=== PATIENT | male | born 1960 | race Caucasian/White ===

== ENCOUNTER 2016-08-23 18:12 | Inpatient (IN) ==
--- NOTE | 2016-08-23 18:51 | Emergency Department Note ---
Disposition Clinical Impression: Hyponatremia Left humeral fracture Qualifiers: Encounter type: initial encounter Humerus Location: proximal Fracture type: closed Fracture morphology: other fracture Fracture alignment: nondisplaced Qualified Code(s): S42.295A - Other nondisplaced fracture of upper end of left humerus, initial encounter for closed fracture Disposition: Admitted As Inpatient Condition: Critical Referrals: Nicolas Harper MD [Primary Care Provider] - Forms: ED Satisfaction Letter Time of Disposition: 20:15 Fall HPI - General Chief Complaint: ED Fall Stated Complaint: fall, ETOH Time Seen by Provider: 08/23/16 18:26 Source: patient, EMS Mode of arrival: EMS Limitations: no limitations Nursing Notes Reviewed: Yes Vital Signs Reviewed: Yes - History of Present Illness HPI Narrative: 56-year-old male with extensive history of alcohol abuse arrives to [facility] emergency department after having a fall yesterday in. The patient states that he drank 20 beers and his noted that the patient fell on his left upper extremity and shoulder. The patient went to bed and woke up this morning with an extensive amount of bruising. The attempted to bring the patient to the hospital for further evaluation. The patient refused. The patient states that he and another 20 beers today and had another fall. At that time the convince the patient to return to the emergency department. The patient denies any other symptoms at this time other than left sided chest wall and left upper extremity pain. The patient is clinically intoxicated at this time. Pt Subjective Complaint: fall Onset (ago): day(s) (1) Fall From: standing Fall Witnessed: yes Place Fall Occurred: home Loss of Consciousness: none Prolonged Down Time?: no Symptoms Prior to Fall: none Context: tripped/slipped Severity: mild Severity scale (1-10): 4 Associated symptoms (after fall): Reports: denies - Related Data Home Medications Medication Instructions Recorded Confirmed Lisinopril [Zestril] 10 mg PO DAILY 01/27/15 08/23/16 Albuterol Sulfate [Ventolin Hfa] 2 puff IH Q4H PRN 08/23/16 08/23/16 Oxycodone HCl/Acetaminophen 1 each PO Q8H PRN 08/23/16 08/23/16 [Percocet 10-325 mg Tablet] Tiotropium [place] [Spiriva 2 puff IH DAILY 08/23/16 08/23/16 Respimat] Allergies Allergy/AdvReac Type Severity Reaction Status Date / Time Androgenic Anabolic Steroid AdvReac Nausea Verified 07/08/15 11:01 Constitutional: Denies: fever, chills, weakness, weight change Eyes: Denies: eye pain, eye discharge, vision change Cardiovascular: Reports: chest pain. Denies: palpitations, dyspnea on exertion , edema, syncope Respiratory: Denies: cough, dyspnea, wheezes, hemoptysis, stridor Gastrointestinal: Denies: abdominal pain, nausea, vomiting, diarrhea, constipation, hematemesis, melena, hematochezia Musculoskeletal: Reports: arthralgia, myalgia. Denies: back pain, neck pain Integumentary: Denies: rash, abrasion, lesions Neurological: Denies: headache, weakness, numbness, paresthesias, confusion, abnormal gait, vertigo Fall PMH - Past Medical History Medical history: Reports: COPD, hypertension Surgical history: Reports: non-contributory Psychiatric history: Reports: anxiety, depression - Social History Smoking Status: Current every day smoker Alcohol use: Reports: heavy, recent Drug use: Reports: opiates Physical Exam - General Limitations: no limitations General appearance: appears intoxicated - Head Head exam: atraumatic, normocephalic, normal inspection - Eye Eye exam: Present: normal appearance, PERRL, EOMI - ENT ENT exam: normal exam, normal oropharynx, mucous membranes moist - Neck Neck exam: Present: normal inspection, full ROM, trachea midline - Chest Chest inspection: Present: symmetric chest wall rise, tenderness, other ( Extensive ecchymosis along the left chest wall into the axilla and left shoulder ) - Respiratory Respiratory exam: Present: normal lung sounds bilaterally - Cardiovascular Cardiovascular exam: Present: regular rate, normal rhythm, normal heart sounds - Abdominal Exam Abdominal exam: Present: soft, tenderness (Generalized), normal bowel sounds. Absent: distention, guarding, rebound, rigidity - Extremities Exam Extremities exam: Present: tenderness (Left shoulder with extensive ecchymosis in the left upper extremity, no obvious deformity noted, a large amount of edema in the left upper extremity as well.) - Back Exam Back exam: Present: normal inspection, full ROM. Absent: tenderness - Neurological Exam Neurological exam: Present: alert, other (Patient clearly intoxicated on physical exam) - Skin Skin exam: Present: warm, dry, intact, normal color Course Vital Signs Temperature 98.6 F 08/23/16 18:13 Pulse Rate 108 08/23/16 18:13 Respiratory Rate 26 08/23/16 18:13 Blood Pressure 119/99 08/23/16 18:13 O2 Sat by Pulse Oximetry 99 08/23/16 18:13 Temperature 98.6 F 08/23/16 18:13 Pulse Rate 112 08/23/16 20:20 Respiratory Rate 20 08/23/16 20:20 Blood Pressure 153/85 08/23/16 20:20 O2 Sat by Pulse Oximetry 98 08/23/16 20:20 Oxygen Delivery Oxygen Delivery Room Air Fall - MDM Narrative Medical decision making narrative: Spoke to hospitalist as well as nephrology. Nephrology recommends 3% saline infusion at 75 mL per hour with Q2 hours sodium checks. Cutting off the 3% solution at a sodium of 1:15. Hospitalist requested an central line be placed for the infusion. We will admit the patient to the ICU. Orthopedics was consulted who recommended a sling. The patient will be seen by orthopedics inpatient. - Lab Data Lab results reviewed: Yes I reviewed the patient's lab results. Result diagrams: 08/23/16 19:10 08/23/16 19:10 Lab Results 08/23/16 08/23/16 08/23/16 Range/Units 19:10 19:10 19:10 WBC 8.2 (4.3-11.1) K/mcL RBC 3.16 L (4.19-5.50) M/mcL Hgb 9.6 L (12.9-16.9) g/dL Hct 26.0 L (37.5-50.1) % MCV 82.3 L (83.0-100.0) fL MCH 30.4 (28.0-33.3) pg MCHC 36.9 H (31.6-35.5) g/dL RDW 12.7 (11.5-14.5) % Plt Count 135 L (140-400) K/mcL MPV 8.3 L (9.4-12.4) fL Immature Gran % 0.7 (0-4) % Seg Neutrophils % 87.0 % Lymphocytes % 6.7 % Monocytes % 5.5 % Eosinophils % 0.0 % Basophils % 0.1 % Neutrophils # 7.2 (1.6-8.9) K/mcL Lymphocytes # 0.6 (0.6-4.6) K/mcL Monocytes # 0.5 (0.0-1.3) K/mcL Eosinophils # 0.0 (0.0-0.6) K/mcL Basophils # 0.0 (0.0-0.2) K/mcL PT (9.4-12.1) Seconds INR Sodium 109 L* (136-145) mEq/L Potassium 4.3 (3.5-4.5) mEq/L Chloride 74 L (98-109) mEq/L Carbon Dioxide 16 L (19-29) mEq/L BUN 4 L (8-26) mg/dL Creatinine 0.66 L (0.72-1.25) mg/dL Est GFR ( Amer) > 60 (> 60) Est GFR (Non-Af Amer) > 60 (> 60) BUN/Creatinine Ratio 6 (6-26) Glucose 126 H (70-99) mg/dL Calculated Osmolality 226 L (280-300) Calcium 8.3 L (8.6-10.8) mg/dL Magnesium (1.6-2.6) mg/dL Total Bilirubin 1.1 (0.2-1.2) mg/dL AST 177 H (5-34) Units/L ALT 224 H (0-55) Units/L Alkaline Phosphatase 82 (38-126) Units/L Creatine Kinase (30-200) Units/L Troponin I 0.00 (0-0.03) ng/mL Serum Total Protein 6.4 (6.0-8.3) g/dL Albumin 3.7 (3.5-5.0) g/dL Globulin 2.7 (2.4-3.5) g/dL Albumin/Globulin Ratio 1.4 (1.1-2.2) Urine Opiates Screen (Vyxpwg=970) ng/mL Ur Barbiturates Screen (Mrulkc=435) ng/mL Ur Phencyclidine Scrn (Cutoff=25) ng/mL Ur Amphetamines Screen (Ddbkxr=8115) ng/mL U Benzodiazepines Scrn (Gtfwsw=883) ng/mL Urine Cocaine Screen (Cutoff= 300) ng/mL U Marijuana (THC) Screen (Cutoff = 50) ng/mL Ethyl Alcohol 274 H (0-10) mg/dL 08/23/16 08/23/16 08/23/16 Range/Units 19:10 19:10 19:27 WBC (4.3-11.1) K/mcL RBC (4.19-5.50) M/mcL Hgb (12.9-16.9) g/dL Hct (37.5-50.1) % MCV (83.0-100.0) fL MCH (28.0-33.3) pg MCHC (31.6-35.5) g/dL RDW (11.5-14.5) % Plt Count (140-400) K/mcL MPV (9.4-12.4) fL Immature Gran % (0-4) % Seg Neutrophils % % Lymphocytes % % Monocytes % % Eosinophils % % Basophils % % Neutrophils # (1.6-8.9) K/mcL Lymphocytes # (0.6-4.6) K/mcL Monocytes # (0.0-1.3) K/mcL Eosinophils # (0.0-0.6) K/mcL Basophils # (0.0-0.2) K/mcL PT 10.9 (9.4-12.1) Seconds INR 1.0 Sodium Cancelled (136-145) mEq/L Potassium (3.5-4.5) mEq/L Chloride (98-109) mEq/L Carbon Dioxide (19-29) mEq/L BUN (8-26) mg/dL Creatinine (0.72-1.25) mg/dL Est GFR ( Amer) (> 60) Est GFR (Non-Af Amer) (> 60) BUN/Creatinine Ratio (6-26) Glucose (70-99) mg/dL Calculated Osmolality (280-300) Calcium (8.6-10.8) mg/dL Magnesium 1.7 (1.6-2.6) mg/dL Total Bilirubin (0.2-1.2) mg/dL AST (5-34) Units/L ALT (0-55) Units/L Alkaline Phosphatase (38-126) Units/L Creatine Kinase 803 H (30-200) Units/L Troponin I (0-0.03) ng/mL Serum Total Protein (6.0-8.3) g/dL Albumin (3.5-5.0) g/dL Globulin (2.4-3.5) g/dL Albumin/Globulin Ratio (1.1-2.2) Urine Opiates Screen Negative (Roerwa=315) ng/mL Ur Barbiturates Screen Negative (Lxoisp=971) ng/mL Ur Phencyclidine Scrn Negative (Cutoff=25) ng/mL Ur Amphetamines Screen Negative (Heoprj=3667) ng/mL U Benzodiazepines Scrn Negative (Cfkzzw=700) ng/mL Urine Cocaine Screen Negative (Cutoff= 300) ng/mL U Marijuana (THC) Screen Negative (Cutoff = 50) ng/mL Ethyl Alcohol (0-10) mg/dL - Radiology Data Radiology results reviewed: Yes I reviewed the patient's radiology results. - EKG Data EKG attestation: Yes I reviewed and interpreted this EKG. EKG results narrative: Heart rate 10 6 bpm. SD interval 141 ms. QTc 381 ms. Normal axis. Sinus tachycardia. No ST elevation or ST depression noted. EKG previously unavailable. Critical Care Time Critical Care Time: Yes Total Critical Care Time: 50 Attestation: Critical care time exclusive of the time required to place a central line was 50 minutes in this patient. Attestation Statement - Attestation Attestation: Patient was seen with resident physician. I reviewed the history, physical, assessment and plan, and agree with the findings. I also personally evaluated this patient and had [id number] time with this patient. 56-year-old male presents to the emergency department with chief complaint of fall. Patient fell yesterday and today developed severe bruising to the left shoulder and arm. Patient is a severe alcoholic drink approximately 20 beers yesterday and another 20 at some point today. Grossly intoxicated he provides absolutely no history whatsoever. History obtained is from 's disease had multiple falls in the last day or so. She is not sure if he hit his head or having loss of consciousness. Patient again is unable to provide any history secondary to intoxication presumably. Vital signs on arrival blood pressure was stable. Heart regular rhythm and rate. Lungs clear. Chest wall shows significant bruising on the lateral pectoralis area on the left side extending around the left flank and into the back. The back and neck themselves are nontender. The abdomen is nontender to palpation there are positive bowel sounds and extremities show no signs of trauma except for the left upper extremity where the patient has significant swelling along the proximal humerus. Skin exam showed bruising as noted and he has got an abrasion to the knees bilaterally worse on the right than on the left. ED course bride of x-rays will be obtained including head CT and neck CT because of injuries cannot be ruled out under the patient's current condition. We will also check lab tests. X-ray of the arm reveals a proximal humerus fracture that appears displaced. Remainder of his workup revealed several other very significant abnormalities. Worst among these was a sodium of 109. Because of this we contacted nephrology to help with fluid resuscitation. Orders per their instructions were done but required a central line which was placed into the right IJ. Patient tolerated the procedure well I was present for the entire procedure. This was performed by resident physician. Additionally the patient had evidence to suggest aspiration pneumonia with ground glass appearance on chest CT scan. Patient was started on IV antibiotics. Orthopedics was also contacted by myself to arrange for consultation for his humerus fracture. Because of the severity of the patient's hyponatremia with felt he was best served by placement in the intensive care unit. This was discussed with the hospitalist and placement in the ICU was arranged. Hemodynamically the patient remains stable but intoxicated throughout his stay. He also had several episodes of nausea and vomiting which were treated with Zofran successfully. Critical care time for this patient exclusive of time of procedure was 50 minutes. Otherwise patient will require hospitalization. Agree with resident physician assessment and plan
[2016-08-23 19:17] LABS: Basophils % 0.1 %; Hemoglobin 9.6 g/dL (12.9-16.9); Immature Granulocytes % 0.7 % (0-4); Lymphocytes # 0.6 K/mcL (0.6-4.6); Lymphocytes % 6.7 %; Mean Corpuscular HGB Conc 36.9 g/dL (31.6-35.5); Mean Corpuscular Hemoglobin 30.4 pg (28.0-33.3); Mean Corpuscular Volume 82.3 fL (83.0-100.0); Mean Platelet Volume 8.3 fL (9.4-12.4); Monocytes # 0.5 K/mcL (0.0-1.3); Monocytes % 5.5 %; Neutrophils # 7.2 K/mcL (1.6-8.9); Platelet Count 135 K/mcL (140-400); Red Blood Count 3.16 M/mcL (4.19-5.50); Red Cell Distribution Width 12.7 % (11.5-14.5)
[2016-08-23 19:22] LABS: Prothrombin Time 10.9 Seconds (9.4-12.1)
[2016-08-23 19:31] LABS: Alanine Aminotransferase 224 Units/L (0-55); Albumin 3.7 g/dL (3.5-5.0); Albumin/Globulin Ratio 1.4 (1.1-2.2); Alkaline Phosphatase 82 Units/L (38-126); Aspartate Amino Transferase 177 Units/L (5-34); BUN/Creatinine Ratio 6 (6-26); Bilirubin,Total 1.1 mg/dL (0.2-1.2); Calcium 8.3 mg/dL (8.6-10.8); Carbon Dioxide 16 mEq/L (19-29); Chloride 74 mEq/L (98-109); Ethanol 274 mg/dL (0-10); Globulin 2.7 g/dL (2.4-3.5); Glucose 126 mg/dL (70-99); Osmolality,Calculated 226 (280-300); Potassium 4.3 mEq/L (3.5-4.5); Total Protein 6.4 g/dL (6.0-8.3); eGFR For African Americans > 60 (> 60); eGFR For Non-African Americans > 60 (> 60)
[2016-08-23 19:32] LABS: Blood Urea Nitrogen 4 mg/dL (8-26)
[2016-08-23 19:35] LABS: Sodium 109 mEq/L (136-145)
[2016-08-23 19:42] LABS: Amphetamine Screen,Urine Negative ng/mL (Cutoff=1000); Barbiturate Screen,Urine Negative ng/mL (Cutoff=200); Benzodiazepines Screen,Urine Negative ng/mL (Cutoff=200); Cannabinoid Screen,Urine Negative ng/mL (Cutoff = 50); Cocaine Screen,Urine Negative ng/mL (Cutoff= 300); Opiate Screen,Urine Negative ng/mL (Cutoff=300); Phencyclidine Screen,Urine Negative ng/mL (Cutoff=25)
[2016-08-23] MEDS ORDERED: Clindamycin 600 MG/50 ML 600 MG/50 ML IV.SOLN IVPB STA (19:50)
[2016-08-23] MEDS ORDERED: Ondansetron 4 MG/2 ML VIAL IVP ONE ×2 (20:04→20:07)
[2016-08-23 20:31] LABS: Magnesium 1.7 mg/dL (1.6-2.6)
--- NOTE | 2016-08-23 21:00 | Emergency Department Note ---
Disposition Clinical Impression: Hyponatremia Left humeral fracture Qualifiers: Encounter type: initial encounter Humerus Location: proximal Fracture type: closed Fracture morphology: other fracture Fracture alignment: nondisplaced Qualified Code(s): S42.295A - Other nondisplaced fracture of upper end of left humerus, initial encounter for closed fracture Disposition: Admitted As Inpatient Condition: Critical Fall HPI - General Chief Complaint: ED Fall Stated Complaint: fall, ETOH Time Seen by Provider: 08/23/16 18:26 Source: patient, EMS Mode of arrival: EMS - History of Present Illness HPI Narrative: This note serves as a procedure note. For full history of present illness and physical exam, clinical course please see Dr. Acosta's and Dr. Patricia's note. Place Fall Occurred: home Context: tripped/slipped Associated symptoms (after fall): Reports: denies - Related Data Home Medications Medication Instructions Recorded Confirmed Lisinopril [Zestril] 10 mg PO DAILY 01/27/15 08/23/16 Albuterol Sulfate [Ventolin Hfa] 2 puff IH Q4H PRN 08/23/16 08/23/16 Oxycodone HCl/Acetaminophen 1 each PO Q8H PRN 08/23/16 08/23/16 [Percocet 10-325 mg Tablet] Tiotropium [place] [Spiriva 2 puff IH DAILY 08/23/16 08/23/16 Respimat] Allergies Allergy/AdvReac Type Severity Reaction Status Date / Time Androgenic Anabolic Steroid AdvReac Nausea Verified 07/08/15 11:01 Constitutional: Denies: fever, chills, weakness, weight change Eyes: Denies: eye pain, eye discharge, vision change Cardiovascular: Reports: chest pain. Denies: palpitations, dyspnea on exertion , edema, syncope Respiratory: Denies: cough, dyspnea, wheezes, hemoptysis, stridor Gastrointestinal: Denies: abdominal pain, nausea, vomiting, diarrhea, constipation, hematemesis, melena, hematochezia Musculoskeletal: Reports: arthralgia, myalgia. Denies: back pain, neck pain Integumentary: Denies: rash, abrasion, lesions Neurological: Denies: headache, weakness, numbness, paresthesias, confusion, abnormal gait, vertigo Fall PMH - Past Medical History Medical history: Reports: COPD, hypertension Surgical history: Reports: non-contributory Psychiatric history: Reports: anxiety, depression - Social History Smoking Status: Current every day smoker Alcohol use: Reports: heavy, recent Drug use: Reports: opiates Physical Exam - General Limitations: no limitations General appearance: appears intoxicated Course Vital Signs Temperature 98.6 F 08/23/16 18:13 Pulse Rate 108 08/23/16 18:13 Respiratory Rate 26 08/23/16 18:13 Blood Pressure 119/99 08/23/16 18:13 O2 Sat by Pulse Oximetry 99 08/23/16 18:13 Temperature 98.6 F 08/23/16 18:13 Pulse Rate 144 08/23/16 21:20 Respiratory Rate 20 08/23/16 21:20 Blood Pressure 112/23 08/23/16 21:20 O2 Sat by Pulse Oximetry 99 08/23/16 21:20 Oxygen Delivery Oxygen Delivery Room Air Procedures - Central Line Placement Right IJ Central Line Inserted*: Yes Central Line Catheter Replacement*: Yes Central Line Insertion: emergent Consent Obtained: written consent Procedural Pause: verify patient name and date of , timeout performed per policy, shanta and assess the site, assemble equipment and verify supplies, perform hand hygiene Patient Placed on Monitor/Pulse Ox: Yes During the Procedure: clinician is wearing sterile gloves, cap, mask,& gown during insertion, sterile field and sterile technique are maintained, patient's face is covered with drape or mask and wearing a cap, everyone in room is wearing a mask Central Line Prep: Povidone-Iodine 1% Prep the Procedure Site: apply chloraprep to the skin using a back and forth scrubbing motion, apply chloraprep for 30 seconds (upper body), 1-2 min ( femoral sites), drape the patient with a full body drape Local Anesthetic: lidocaine 1% Amount of anesthesia used (mL): 3 Ultrasound Used for Placement: Yes Central Line Lumen Inserted: triple Post Procedure: sutured in place, good blood return, all ports aspirated, flushed, capped, sterile dressing applied, guide wire removed and visualized Post Procedure X-Ray: tip of catheter in good position, no pneumothorax seen Patient Tolerated Procedure: well, no complications Complications: none Name of Clinician Inserting Central Line: Thor Clinician Assisting/Completing Checklist: Belem Acosta Date: 08/23/16 Time: 21:00 Fall - Lab Data Result diagrams: 08/23/16 19:10 08/23/16 21:53 Lab Results 08/23/16 08/23/16 08/23/16 Range/Units 19:10 19:10 19:10 WBC 8.2 (4.3-11.1) K/mcL RBC 3.16 L (4.19-5.50) M/mcL Hgb 9.6 L (12.9-16.9) g/dL Hct 26.0 L (37.5-50.1) % MCV 82.3 L (83.0-100.0) fL MCH 30.4 (28.0-33.3) pg MCHC 36.9 H (31.6-35.5) g/dL RDW 12.7 (11.5-14.5) % Plt Count 135 L (140-400) K/mcL MPV 8.3 L (9.4-12.4) fL Immature Gran % 0.7 (0-4) % Seg Neutrophils % 87.0 % Lymphocytes % 6.7 % Monocytes % 5.5 % Eosinophils % 0.0 % Basophils % 0.1 % Neutrophils # 7.2 (1.6-8.9) K/mcL Lymphocytes # 0.6 (0.6-4.6) K/mcL Monocytes # 0.5 (0.0-1.3) K/mcL Eosinophils # 0.0 (0.0-0.6) K/mcL Basophils # 0.0 (0.0-0.2) K/mcL PT (9.4-12.1) Seconds INR Sodium 109 L* (136-145) mEq/L Potassium 4.3 (3.5-4.5) mEq/L Chloride 74 L (98-109) mEq/L Carbon Dioxide 16 L (19-29) mEq/L BUN 4 L (8-26) mg/dL Creatinine 0.66 L (0.72-1.25) mg/dL Est GFR ( Amer) > 60 (> 60) Est GFR (Non-Af Amer) > 60 (> 60) BUN/Creatinine Ratio 6 (6-26) Glucose 126 H (70-99) mg/dL Calculated Osmolality 226 L (280-300) Calcium 8.3 L (8.6-10.8) mg/dL Magnesium (1.6-2.6) mg/dL Total Bilirubin 1.1 (0.2-1.2) mg/dL AST 177 H (5-34) Units/L ALT 224 H (0-55) Units/L Alkaline Phosphatase 82 (38-126) Units/L Creatine Kinase (30-200) Units/L Troponin I 0.00 (0-0.03) ng/mL Serum Total Protein 6.4 (6.0-8.3) g/dL Albumin 3.7 (3.5-5.0) g/dL Globulin 2.7 (2.4-3.5) g/dL Albumin/Globulin Ratio 1.4 (1.1-2.2) Urine Opiates Screen (Sjartq=037) ng/mL Ur Barbiturates Screen (Jlgdvz=213) ng/mL Ur Phencyclidine Scrn (Cutoff=25) ng/mL Ur Amphetamines Screen (Tnasof=1934) ng/mL U Benzodiazepines Scrn (Vjvtof=138) ng/mL Urine Cocaine Screen (Cutoff= 300) ng/mL U Marijuana (THC) Screen (Cutoff = 50) ng/mL Ethyl Alcohol 274 H (0-10) mg/dL 08/23/16 08/23/16 08/23/16 Range/Units 19:10 19:10 19:27 WBC (4.3-11.1) K/mcL RBC (4.19-5.50) M/mcL Hgb (12.9-16.9) g/dL Hct (37.5-50.1) % MCV (83.0-100.0) fL MCH (28.0-33.3) pg MCHC (31.6-35.5) g/dL RDW (11.5-14.5) % Plt Count (140-400) K/mcL MPV (9.4-12.4) fL Immature Gran % (0-4) % Seg Neutrophils % % Lymphocytes % % Monocytes % % Eosinophils % % Basophils % % Neutrophils # (1.6-8.9) K/mcL Lymphocytes # (0.6-4.6) K/mcL Monocytes # (0.0-1.3) K/mcL Eosinophils # (0.0-0.6) K/mcL Basophils # (0.0-0.2) K/mcL PT 10.9 (9.4-12.1) Seconds INR 1.0 Sodium Cancelled (136-145) mEq/L Potassium (3.5-4.5) mEq/L Chloride (98-109) mEq/L Carbon Dioxide (19-29) mEq/L BUN (8-26) mg/dL Creatinine (0.72-1.25) mg/dL Est GFR ( Amer) (> 60) Est GFR (Non-Af Amer) (> 60) BUN/Creatinine Ratio (6-26) Glucose (70-99) mg/dL Calculated Osmolality (280-300) Calcium (8.6-10.8) mg/dL Magnesium 1.7 (1.6-2.6) mg/dL Total Bilirubin (0.2-1.2) mg/dL AST (5-34) Units/L ALT (0-55) Units/L Alkaline Phosphatase (38-126) Units/L Creatine Kinase 803 H (30-200) Units/L Troponin I (0-0.03) ng/mL Serum Total Protein (6.0-8.3) g/dL Albumin (3.5-5.0) g/dL Globulin (2.4-3.5) g/dL Albumin/Globulin Ratio (1.1-2.2) Urine Opiates Screen Negative (Rgyjaz=187) ng/mL Ur Barbiturates Screen Negative (Gqfhkl=466) ng/mL Ur Phencyclidine Scrn Negative (Cutoff=25) ng/mL Ur Amphetamines Screen Negative (Lxquha=6607) ng/mL U Benzodiazepines Scrn Negative (Bpfhiy=458) ng/mL Urine Cocaine Screen Negative (Cutoff= 300) ng/mL U Marijuana (THC) Screen Negative (Cutoff = 50) ng/mL Ethyl Alcohol (0-10) mg/dL Attestation Statement - Attestation Attestation: This is a procedure note for the insertion of a right IJ central line. Line was successfully placed by resident physician. I was present for the entire procedure. Procedure was without complications. Written consent was obtained from the patient's spouse as he was too intoxicated to consent himself.
[2016-08-23] MEDS ORDERED: *HR* Promethazine 25 MG/ML VIAL IVP ONE (21:16)
[2016-08-23] MEDS ORDERED: Naloxone 0.4 MG/ML INJ IVP PRN (22:09)
[2016-08-23] MEDS ORDERED: *HR* LORazepam 2 MG/ML VIAL IVP PRN ×2 (22:10)
[2016-08-23] MEDS ORDERED: Pantoprazole 40 MG VIAL IVP ONE (22:51)
--- NOTE | 2016-08-23 22:51 | Internal Med History&Physical ---
Date of Encounter: 08/23/16 Time of Encounter: 22:51 Assessment and Plan (1) Hyponatremia Current visit: Yes Status: Acute Likely secondary to Beer potomania. Pt is started on 3% saline per digester cook. Monitor serum sodium level every 2 hours, for gradual improvement of the sodium level. Seizure precautions. CT head and CT chest negative for mass lesions.Will check TSH. (2) Upper GI bleed Current visit: Yes Status: Acute Patient reports vomiting blood. I suspect this is probably related to gastritis /esophagitis. CT scan reports esophagitis. Will treat with pantoprazole. Consult gastroenterology for possible upper GI endoscopy. Monitor H&H and transfuse as needed, to keep hemoglobin above 8 (3) Acute blood loss anemia Current visit: Yes Status: Acute Likely secondary to upper GI bleed. Consult gastroenterology for possible upper GI endoscopy. Monitor H&H and transfuse as needed, to keep hemoglobin above 8 (4) Rhabdomyolysis Current visit: Yes Status: Acute Patient is receiving IV fluids. Will avoid rapid IV fluids due to severe hyponatremia. Monitor CK levels. Qualifiers: Rhabdomyolysis type: traumatic Encounter type: initial encounter Qualified Code(s): T79.6XXA - Traumatic ischemia of muscle, initial encounter (5) Transaminitis Current visit: Yes Status: Acute Likely secondary to rhabdomyolysis versus alcoholic hepatitis. Monitor LFTs (6) Alcohol intoxication Current visit: Yes Status: Acute ETOH level of 274 in the emergency department. He is at high risk for alcohol withdrawal. Start alcohol withdrawal protocol. We will give him intravenous vitamins. Qualifiers: Complication of substance-induced condition: with unspecified complication Qualified Code(s): F10.129 - Alcohol abuse with intoxication, unspecified (7) Esophagitis Current visit: Yes Status: Acute CT scan shows evidence of esophagitis, could be causing upper GI bleed. Treat with the pantoprazole. GI consultation. (8) HTN (hypertension) Current visit: Yes Status: Chronic Will resume his home medications Qualifiers: Hypertension type: essential hypertension Qualified Code(s): I10 - Essential (primary) hypertension (9) Alcohol abuse Current visit: Yes Status: Chronic ETOH level of 274 in the emergency department. He is at high risk for alcohol withdrawal. Start alcohol withdrawal protocol. We will give him intravenous vitamins. (10) Left humeral fracture Current visit: Yes Status: Acute Patient has a sling in place. Orthopedic consultation for possible surgical intervention. Qualifiers: Encounter type: initial encounter Humerus Location: proximal Fracture type: closed Fracture morphology: other fracture Fracture alignment: nondisplaced Qualified Code(s): S42.295A - Other nondisplaced fracture of upper end of left humerus, initial encounter for closed fracture (11) Tobacco abuse Current visit: Yes Status: Chronic Nicotine patch Internal Medicine - H&P: HPI Chief complaint: Falls Admitted From: Emergency Dept Plans for Post Hospital Care: Home History of present illness: Mr. Verduzco is a 56 year old male with h/o hypertension, COPD, extensive history of alcohol abuse presented to the emergency department after he had a fall yesterday and bruising over the left shoulder. The patient apparently drank about 20 beers yesterday and the 20 beers today. He has been drinking heavy for the last week, and his states that he has been depressed. He has h/o chronic alcohol abuse, but was going to therapy before. He reports vomiting blood/black colored fluid today. He denies melena/ hematochezia. He denies chest pain, shortness of breath, fever, chills, dysuria , hematuria, diarrhea. He denies cough, expectoration. He reports pain in the left shoulder area and bruising, and is on Sling for left upper extremity. He was evaluated in the emergency department and was noted to have comminuted, impacted left humeral neck fracture and was given sling. His labs showed serum sodium of 109 and transaminitis and elevated CK. Physician discussed with digester cook, and started on 3% saline. He is admitted to the intensive care unit for further management. Past Med Surg Social Fam HX - Past Medical History Medical history: COPD, hypertension Psychiatric history: anxiety, depression - Past Surgical History Surgical History: non-contributory - Social History Smoking Status: Current every day smoker Smokeless Tobacco Status: No Alcohol use: heavy, recent Drug use: opiates - Family History Mother Living Status: Hx Family Cancer: Yes Internal Medicine - H&P: Meds Lisinopril [Zestril] 10 mg PO DAILY 01/27/15 [History] Albuterol Sulfate [Ventolin Hfa] 2 puff IH Q4H PRN 08/23/16 [History] Oxycodone HCl/Acetaminophen [Percocet 10-325 mg Tablet] 1 each PO Q8H PRN [History] Tiotropium [place] [Spiriva Respimat] 2 puff IH DAILY 08/23/16 [History] Allergies Androgenic Anabolic Steroid Adverse Reaction (Verified 07/08/15 11:01) Nausea All Systems PM: A 10-system review of systems was performed and is negative for pertinent findings except as documented above in the HPI. - Constitutional Vitals: Temp Pulse Resp BP Pulse Ox 98.6 F 144 20 106/76 99 08/23/16 18:13 08/23/16 21:20 08/23/16 22:49 08/23/16 22:49 08/23/16 21:20 Exam: General: Not in acute distress at the time of my evaluation HEENT: Oral mucosa is moist. No conjunctival palor or scleral icterus Neck: No obvious neck swellings Lungs: Clear to auscultation Cardiac: Regular rate and rhythm. No significant murmurs Abdomen: Soft, non tender. Bowel sounds present Genitourinary: No hopkins catheter Neurological: Alert and oriented. No gross localizing deficits Psych: Not aggressive or agitated Extremities: There is bruising over the left shoulder and chest area. Has sling to the left upper extremity Skin: No generalized rash Internal Med - H&P Results - Labs CBC & Chem 7: 08/24/16 02:44 08/24/16 02:44 Labs: BMP 08/23/16 21:53 Sodium 111 L* - EKG Data -: EKG Interpreted by Myself EKG shows normal: sinus rhythm Rate: tachycardia - Impressions ITS Impressions Chest X-Ray 08/23/16 18:27 IMPRESSION: No acute cardiopulmonary disease. Left lateral 9th rib fracture. Comminuted left humeral neck fracture. D/ / Giuseppe Burks MD / Giuseppe Burks MD Interpreting Provider: Giuseppe Burks MD Abdomen/Pelvis CT 08/23/16 18:28 IMPRESSION: Acute fracture of the proximal left humerus with surrounding soft tissue swelling and edema. Multiple remote left-sided rib fractures. Scattered, nonspecific ground-glass nodular infiltrates within both lungs. Thickened, edematous lower esophagus which may reflect esophagitis. Fatty liver. D/ / Khoi Bunch MD / Khoi Bunch MD Interpreting Provider: Khoi Bunch MD Cervical Spine CT 08/23/16 18:29 IMPRESSION: 1. No convincing acute osseous finding to account for patient's neck pain; however, image quality is degraded by motion secondary to hiccups. If patient's neck pain persists, consider repeating CT once hiccups have resolved. 2. Moderate degenerative disc disease at C5-C6 with reversal of the cervical lordosis at C4-C5 with chronic wedge deformities of C4 and C5. D/ / 08/23/2016 19:24:19 Nils Alford MD / priyanka Interpreting Provider: Nils Alford MD Head CT 08/23/16 18:29 IMPRESSION: Motion compromised negative head CT. D/ / Kapil Darden MD / Kapil Darden MD Interpreting Provider: Kapil Darden MD Chest CT 08/23/16 18:31 IMPRESSION: Acute fracture of the proximal left humerus with surrounding soft tissue swelling and edema. Multiple remote left-sided rib fractures. Scattered, nonspecific ground-glass nodular infiltrates within both lungs. Thickened, edematous lower esophagus which may reflect esophagitis. Fatty liver. D/ / Khoi Bunch MD / Khoi Bunch MD Interpreting Provider: Khoi Bunch MD Humerus X-Ray 08/23/16 18:33 IMPRESSION: Comminuted, impacted left humeral neck fracture. D/ / Giuseppe Burks MD / Giuseppe Burks MD Interpreting Provider: Giuseppe Burks MD Chest X-Ray 08/23/16 20:57 IMPRESSION: A right internal jugular venous catheter has been placed with the tip in satisfactory position as above. No other change when compared with the prior study from earlier [facility]. D/ / Miguel Bobo MD / Miguel Bobo MD Interpreting Provider: Miguel Bobo MD
[2016-08-23] MEDS ORDERED: *HR* Promethazine 25 MG/ML VIAL IVP PRN (22:52)
[2016-08-23] MEDS: Pantoprazole 40 MG in 0.9 % Sodium Chloride Mini Bag 100 ML IVC SCH (23:33)
[2016-08-24 00:19] LABS: Hematocrit 22.4 % (37.5-50.1); Hemoglobin 8.3 g/dL (12.9-16.9)
[2016-08-24] MEDS: *HR* LORazepam 2 MG/ML VIAL IVP PRN ×3 (01:49→12:20)
[2016-08-24 02:59] LABS: Hematocrit 21.6 % (37.5-50.1); Hemoglobin 7.8 g/dL (12.9-16.9)
[2016-08-24] MEDS ORDERED: Thiamine (B-1) 100 MG, Folic Acid 1 MG, MVI, adult with vitamin K 10 ML in 0.9 % Sodi... IVPB SCH ×2 (04:00→18:00)
[2016-08-24] MEDS: Pantoprazole 40 MG in 0.9 % Sodium Chloride Mini Bag 100 ML IVC SCH ×4 (04:05→19:52)
[2016-08-24] MEDS: Nicotine 21 MG PATCH.TD24 TD SCH ×2 (04:08→08:31)
[2016-08-24 04:14] LABS: INR 1.1; Prothrombin Time 11.9 Seconds (9.4-12.1)
[2016-08-24 05:07] LABS: Hematocrit 22.3 % (37.5-50.1); Hemoglobin 8.2 g/dL (12.9-16.9); Immature Granulocytes % 0.4 % (0-4); Immature Platelets 4.3 % (1.1-6.1); Lymphocytes # 0.8 K/mcL (0.6-4.6); Lymphocytes % 10.3 %; Mean Corpuscular HGB Conc 36.8 g/dL (31.6-35.5); Mean Corpuscular Hemoglobin 30.4 pg (28.0-33.3); Mean Corpuscular Volume 82.6 fL (83.0-100.0); Mean Platelet Volume 9.1 fL (9.4-12.4); Monocytes # 0.4 K/mcL (0.0-1.3); Monocytes % 5.6 %; Neutrophils # 6.2 K/mcL (1.6-8.9); Platelet Count 140 K/mcL (140-400); Red Cell Distribution Width 12.8 % (11.5-14.5); Segmented Neutrophils % 83.7 %
[2016-08-24] MEDS ORDERED: 0.9 % Sodium Chloride 500 ML ONE (05:24)
[2016-08-24 06:20] LABS: Alanine Aminotransferase 169 Units/L (0-55); Albumin 3.2 g/dL (3.5-5.0); Albumin/Globulin Ratio 1.3 (1.1-2.2); Alkaline Phosphatase 68 Units/L (38-126); Aspartate Amino Transferase 145 Units/L (5-34); BUN/Creatinine Ratio 6 (6-26); Bilirubin,Total 1.1 mg/dL (0.2-1.2); Calcium 8.1 mg/dL (8.6-10.8); Carbon Dioxide 19 mEq/L (19-29); Chloride 84 mEq/L (98-109); Globulin 2.4 g/dL (2.4-3.5); Glucose 95 mg/dL (70-99); Magnesium 1.4 mg/dL (1.6-2.6); Osmolality,Calculated 239 (280-300); Phosphorous 2.5 mg/dL (2.3-4.7); Potassium 4.4 mEq/L (3.5-4.5); Total Protein 5.6 g/dL (6.0-8.3); eGFR For African Americans > 60 (> 60); eGFR For Non-African Americans > 60 (> 60)
[2016-08-24 06:24] LABS: Blood Urea Nitrogen 4 mg/dL (8-26)
[2016-08-24 06:25] LABS: Sodium 116 mEq/L (136-145)
[2016-08-24 06:41] LABS: Thyroid Stimulating Hormone 1.155 mcIU/mL (0.350-4.840)
--- NOTE | 2016-08-24 07:54 | Nephrology Consult Note ---
Date of Encounter: 08/24/16 Time of Encounter: 07:52 Assessment and Plan (1) Hyponatremia Current Visit: Yes Status: Acute Patient has a clinical picture of severe hyponatremia. On clinical exam he does not appear to be volume overloaded. He has low levels of urea nitrogen and creatinine. This suggests a possible tea and toast syndrome with low solute intake. Conversely he could have SIDH. I suspect however that the hyponatremia is primarily related to his alcohol abuse and low solute intake. We will need to check thyroid studies as well as cortisol levels. In the meantime I am going to place the patient on normal saline and monitor his serum sodium closely. (2) Left humeral fracture Current Visit: Yes Status: Acute Qualifiers: Encounter type: initial encounter Humerus Location: proximal Fracture type: closed Fracture morphology: other fracture Fracture alignment: nondisplaced Qualified Code(s): S42.295A - Other nondisplaced fracture of upper end of left humerus, initial encounter for closed fracture (3) Alcohol intoxication Current Visit: Yes Status: Acute Qualifiers: Complication of substance-induced condition: with unspecified complication Qualified Code(s): F10.129 - Alcohol abuse with intoxication, unspecified History of Present Illness - History of Present Illness This is a 56-year-old male presenting to the emergency room after sustaining a fall. Patient apparently was intoxicated at the time. He has a history of chronic alcohol abuse. Evaluation emergency room showed he had a sodium of 109. Previous sodium levels have ranged from 124-133. Patient is unaware of any previous problems with hyponatremia. Patient denies any lower extremity swelling nausea vomiting diarrhea. He says he has been eating his usual diet. Review of home medications do not show that he takes any thiazide-type diuretics. Patient has sustained a fracture of the left humerus as well as the left ninth rib. Patient reports he drinks 6-12 beers a day, medical record indicates he been drinking as much as 20 beers per day. Currently the patient appears to be alert and oriented. He has no specific complaints at this time. The patient was started on 3% saline overnight. His sodium has gone from 109 up to 117. Past Med Surg Social Fam HX - Past Medical History Medical history: COPD, hypertension Psychiatric history: anxiety, depression - Past Surgical History Surgical History: non-contributory - Social History Smoking Status: Current every day smoker Smokeless Tobacco Status: No Alcohol use: heavy, recent Drug use: opiates - Family History Mother Living Status: Hx Family Cancer: Yes Medications and Allergies Lisinopril [Zestril] 10 mg PO DAILY 01/27/15 [History] Albuterol Sulfate [Ventolin Hfa] 2 puff IH Q4H PRN 08/23/16 [History] Oxycodone HCl/Acetaminophen [Percocet 10-325 mg Tablet] 1 each PO Q8H PRN [History] Tiotropium [place] [Spiriva Respimat] 2 puff IH DAILY 08/23/16 [History] Allergies Androgenic Anabolic Steroid Adverse Reaction (Verified 07/08/15 11:01) Nausea Review of Systems Constitutional: no excessive sweating, no weight loss Eyes: bilateral: blurred vision (patient denies), diplopia (patient denies) Nose, mouth and throat: no dizziness, no headache(s) Respiratory: no cough, no dyspnea Gastrointestinal: hematemesis, no abdominal pain, no change in bowel habits Musculoskeletal: as per HPI Integumentary: no hirsutism, no striae Neurological: as per HPI Psychiatric: as per HPI Endocrine: as per HPI Hematologic/Lymphatic: no easy bruising, no lymphadenopathy Exam - Vital Signs Vital signs: Initial Vital Signs Temp Pulse Resp BP Pulse Ox 98.6 F 108 26 119/99 99 08/23/16 18:13 08/23/16 18:13 08/23/16 18:13 08/23/16 18:13 08/23/16 18:13 Vital Signs - Last 8 Hours Temp Pulse Resp BP Pulse Ox 08/24/16 05:58 118 20 140/82 95 08/24/16 05:43 100.2 F H 123 20 140/82 95 08/24/16 05:28 100.6 F H 122 20 155/84 95 08/24/16 05:00 122 20 155/84 95 08/24/16 04:00 100.6 F H 122 20 150/89 94 08/24/16 03:00 117 22 148/81 94 08/24/16 01:53 98.9 F 119 22 147/96 99 Intake and Output 08/23/16 08/23/16 08/24/16 15:59 23:59 07:59 Intake Total 50 / 50 550 / 550 Output Total 900 / 900 Balance 50 / 50 -350 / -350 Intake: IV Fluids 50 / 50 550 / 550 3% Sodium Chloride 500 ML 450 / 450 @ 75 mls/hr IVC .Q6H40M ESTEFANI Rx#:[id number] Protonix 40 MG In 0.9 % 100 / 100 Sodium Chloride (Mini-Bag +) 100 ML @ 20 mls/hr IVC .Q5H ESTEFANI Rx#: [id number] Cleocin Premix 600 MG/50 50 / 50 ML 600 mg In 50 ml @ 50 mls/hr IVPB NOW STA Rx#: [id number] Oral 0 / 0 Blood Product 0 / 0 Rbcs Leuko Poor As-1 0 / 0 Unit [id number] Output: Urine 900 / 900 - General Appearance Exam: The patient is alert and oriented. He is in no acute distress. Temperatures 100.2. Blood pressure 140/82. Lungs exhibit diminished breath sounds otherwise clear to auscultation anteriorly. Heart regular rate and rhythm. Abdomen shows normal bowel sounds Elias's masses or organomegaly. Lower extremities show no peripheral edema. Results - Lab Results 08/24/16 04:00 08/24/16 06:00 Most recent lab results Calcium 8.1 mg/dL (8.6-10.8) L 08/24/16 04:00 Phosphorus 2.5 mg/dL (2.3-4.7) 08/24/16 04:00 Magnesium 1.4 mg/dL (1.6-2.6) L 08/24/16 04:00 Consult Discharge Plan - Plan Referrals: Nicolas Harper MD [Primary Care Provider] -
[2016-08-24] MEDS: 0.9 % Sodium Chloride 1,000 ML IVC SCH ×2 (08:30→19:52)
[2016-08-24 08:50] LABS: Hematocrit 22.6 % (37.5-50.1); Hemoglobin 8.2 g/dL (12.9-16.9)
[2016-08-24 09:40] LABS: Thyroid Stimulating Hormone 1.393 mcIU/mL (0.350-4.840)
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
[2016-08-24 13:00] LABS: Hemoglobin 8.4 g/dL (12.9-16.9)
--- NOTE | 2016-08-24 13:41 | Internal Med Progress Note ---
Date of Encounter: 08/24/16 Time of Encounter: 09:30 - Assessment and plan (1) Hyponatremia Current Visit: Yes Status: Acute Assessment and plan: probably related to alcohol abuse, nephrology following, monitor sodium level closely (2) Left humeral fracture Current Visit: Yes Status: Acute Assessment and plan: sling in place, orthopedic consult Qualifiers: Encounter type: initial encounter Humerus Location: proximal Fracture type: closed Fracture morphology: other fracture Fracture alignment: nondisplaced Qualified Code(s): S42.295A - Other nondisplaced fracture of upper end of left humerus, initial encounter for closed fracture (3) Rhabdomyolysis Current Visit: Yes Status: Acute Assessment and plan: continue IV fluids Qualifiers: Rhabdomyolysis type: traumatic Encounter type: initial encounter Qualified Code(s): T79.6XXA - Traumatic ischemia of muscle, initial encounter (4) Alcohol intoxication Current Visit: Yes Status: Acute Assessment and plan: alcohol abuse, counselled about cessation, withdrawal protocol Qualifiers: Complication of substance-induced condition: with unspecified complication Qualified Code(s): F10.129 - Alcohol abuse with intoxication, unspecified (5) Upper GI bleed Current Visit: Yes Status: Acute Assessment and plan: resolved, likely related to alcohol abuse - esophagitis/gastritis - IV Pantoprazole (6) Tobacco abuse Current Visit: Yes Status: Chronic Assessment and plan: NRT, counselled about cessation - Time Spent With Patient 25 - 35 minutes - Subjective Interval history: Patient awake and alert. Not in any distress. Says he feels better now. Denies chest pain or shortness of breath. No fever. Left arm in sling. Hyponatremia slowly improving. No other acute events or complaints. - Constitutional Vitals: Temp Pulse Resp BP Pulse Ox 98.3 F 100 20 145/89 98 08/24/16 12:00 08/24/16 13:33 08/24/16 13:33 08/24/16 13:33 08/24/16 13:33 General appearance: Present: disheveled, A&O X 3, pleasant, no acute distress, answers questions appropriately - Head Head exam: Present: atraumatic - Neck Neck exam general surgery: Present: supple - Respiratory Respiratory exam: Present: CTAB. Absent: rhonchi, wheezes - Cardiovascular Cardiovascular exam: Present: RRR, +S1, +S2 - GI/Abdominal GI/Abdominal exam: Present: soft. Absent: guarding, tenderness - Extremities Exam Extremities exam: Present: radial pulses palpable and symetrical Additional comments: left humeral fracture, left arm in sling - Neurological Exam Neurological exam: Present: alert, oriented X3, no focal deficits Internal Medicine: Result - Labs CBC & Chem 7: 08/24/16 12:53 08/24/16 08:39 Labs: Short CBC 08/24/16 08/24/16 08/24/16 Range/Units 00:15 02:44 04:00 WBC 7.5 (4.3-11.1) K/mcL Hgb 8.3 L 7.8 L 8.2 L (12.9-16.9) g/dL Hct 22.4 L 21.6 L 22.3 L (37.5-50.1) % Plt Count 140 (140-400) K/mcL Neutrophils # 6.2 (1.6-8.9) K/mcL 08/24/16 08/24/16 Range/Units 08:39 12:53 WBC (4.3-11.1) K/mcL Hgb 8.2 L 8.4 L (12.9-16.9) g/dL Hct 22.6 L 23.0 L (37.5-50.1) % Plt Count (140-400) K/mcL Neutrophils # (1.6-8.9) K/mcL BMP 08/23/16 08/23/16 08/24/16 21:53 23:55 02:44 Sodium 111 L* 112 L* 116 L* Potassium Chloride Carbon Dioxide BUN Creatinine Glucose Calcium 08/24/16 08/24/16 08/24/16 04:00 06:00 08:39 Sodium 116 L* 117 L* 118 L* Potassium 4.4 Chloride 84 L Carbon Dioxide 19 BUN 4 L Creatinine 0.65 L Glucose 95 Calcium 8.1 L Liver Function 08/24/16 Range/Units 04:00 Total Bilirubin 1.1 (0.2-1.2) mg/dL AST 145 H (5-34) Units/L ALT 169 H (0-55) Units/L Alkaline Phosphatase 68 (38-126) Units/L Albumin 3.2 L (3.5-5.0) g/dL - ABG Interpretation ABG results: PT/INR, D-dimer PT 11.9 Seconds (9.4-12.1) 08/24/16 04:00 Consult Discharge Plan - Plan Referrals: Nicolas Harper MD [Primary Care Provider] -
--- NOTE | 2016-08-24 14:23 | Gastroenterology Consult Note ---
<Cirilo Lundy Donato - Last Filed: 08/24/16 14:20> Date of Encounter: 08/24/16 Time of Encounter: 10:40 - Assessment and plan (1) Upper GI bleed Current Visit: Yes Status: Acute Assessment and plan: Plan for EGD to r/o esophagitis, gastritis, duodenitis, PUD, MW tear, or AVM once sodium up to at least 130. (2) Acute blood loss anemia Current Visit: Yes Status: Acute Assessment and plan: Secondary to upper GI bleed. Continue to monitor CBC and transfuse PRBC as needed. (3) Esophagitis Current Visit: Yes Status: Acute Assessment and plan: CT A/P showed lower esophagus thickening/edema likely secondary to esophagitis. Continue PPI. (4) Hyponatremia Current Visit: Yes Status: Acute Assessment and plan: Likely secondary to ETOH abuse. Sodium 109 on admission and has slowly risen to 118. Plan for EGD once sodium up to 130. (5) Hepatic steatosis Current Visit: Yes Status: Acute Assessment and plan: CT A/P showed diffuse fatty liver. Check liver US, AFP, alpha-1 antitrypsin, AMA , ANCA, ceruloplasmin, F-Actin, ferritin, hepatitis profile, AMA (6) Left humeral fracture Current Visit: Yes Status: Acute Qualifiers: Encounter type: initial encounter Humerus Location: proximal Fracture type: closed Fracture morphology: other fracture Fracture alignment: nondisplaced Qualified Code(s): S42.295A - Other nondisplaced fracture of upper end of left humerus, initial encounter for closed fracture - Time Spent With Patient Total time spent is greater than 50% in coordination of care (as documented) at patient's floor/unit and/or counseling patient: GI History of Present Illness - Data of Consult Patient: new to practice Consult date: 08/24/16 Requesting Physician: Aamir Redmond MD - Consult Narrative Reason for consult: UGI bleed History of present illness: Mr. Verduzco is a 56 year old male with PMHx of COPD, HTN, extensive history of alcohol abuse presented to the ED after a fall with bruising on left shoulder. He reportedly drank 20 beers the day before admission and fell. When he woke up he noted extensive bruising on the left shoulder/arm. His attempted to bring him to the ED but he refused. He proceeded to drink another 20 beers and had another fall. He reports vomiting blood/black colored fluid. He denies melena/hematochezia. He denies chest pain, shortness of breath, fever, chills, dysuria, hematuria, diarrhea. He was noted to have comminuted, impacted left humeral neck fracture and was given sling in the ED. He was also noted to have sodium of 109 on admission, and Nephrology has been consulted. We were consulted to evaluate his anemia and coffee-ground emesis. Procedures: None NSAIDs: None Anticoagulation: None Past Med Surg Social Fam HX - Past Medical History Medical history: COPD, hypertension Psychiatric history: anxiety, depression - Past Surgical History Surgical History: non-contributory - Social History Smoking Status: Current every day smoker Smokeless Tobacco Status: No Alcohol use: heavy, recent Drug use: opiates - Family History Mother Living Status: Hx Family Cancer: Yes - Gastrointestinal Gastrointestinal: Present: as per HPI - Constitutional Constitutional: as per HPI - EENT Eyes: as per HPI Ears: Present: as per HPI Nose, mouth and throat: Present: as per HPI - Cardiovascular Cardiovascular ROS: Present: as per HPI - Respiratory Respiratory IM: Present: as per HPI - Genitourinary Genitourinary: Absent: change in color, Urinary frequency - Neurological ROS Neurological GI: Present: as per HPI - Hematologic/Lymphatic Hematologic/Lymphatic pediatric: Present: as per HPI - Musculoskeletal Musculoskeletal ROS GI: Present: as per HPI - Integumentary Integumentary GI: Present: as per HPI - Psychiatric ROS Psychiatric GI: Present: as per HPI - Endocrine Endocrine IM: Present: as per HPI - Constitutional Vitals: Temp Pulse Resp BP Pulse Ox 98.3 F 100 20 145/89 98 08/24/16 12:00 08/24/16 13:33 08/24/16 13:33 08/24/16 13:33 08/24/16 13:33 General appearance: Present: cooperative, A&O X 3, no acute distress, answers questions appropriately - Head Head exam: Present: atraumatic, normocephalic - Eye Eye exam: Present: normal appearance, sclera anicteric - ENT ENT exam: Present: mucous membranes dry - Neck Neck exam general surgery: Present: normal inspection, trachea midline - Respiratory Respiratory exam: Present: CTAB. Absent: rales, rhonchi - Cardiovascular Cardiovascular exam: Present: RRR, +S1, +S2 - GI/Abdominal GI/Abdominal exam: Present: soft, no peritoneal signs. Absent: distended, firm , guarding, tenderness - Rectal Rectal exam: Present: deferred - Extremities Exam Extremities exam: Present: warm Additional comments: Left humeral fracture, left arm in sling - Neurological Exam Neurological exam: Present: no focal deficits - Psychiatric Psychiatric exam: Present: normal affect, normal mood - Skin Skin exam: Present: dry, intact, normal color, warm Results - Labs CBC & Chem 7: 08/24/16 12:53 08/24/16 08:39 Labs: Last Result Calcium 8.1 mg/dL (8.6-10.8) L 08/24/16 04:00 Troponin I 0.00 ng/mL (0-0.03) 08/23/16 19:10 Urine Opiates Screen Negative ng/mL (Dsetvm=912) 08/23/16 19:27 Entire Visit Hgb 8.4 g/dL (12.9-16.9) L 08/24/16 12:53 Hct 23.0 % (37.5-50.1) L 08/24/16 12:53 PT 11.9 Seconds (9.4-12.1) 08/24/16 04:00 Total Bilirubin 1.1 mg/dL (0.2-1.2) 08/24/16 04:00 AST 145 Units/L (5-34) H 08/24/16 04:00 ALT 169 Units/L (0-55) H 08/24/16 04:00 - ABG ABG results: PT/INR, D-dimer PT 11.9 Seconds (9.4-12.1) 08/24/16 04:00 Consult Discharge Plan - Plan Additional Instructions: [facility], , [address] [place] [address]: APPOINTMENT 09/02/16 @ 9:00AM. PLEASE ATTEND ALL APPOINTMENTS SCHEDULED. PLEASE TAKE ALL MEDICATIONS PRESCRIBED. Discharge Instructions: Total Shoulder Please call [facility] ([phone]), your Primary Care Physician, or report to the Emergency Room if you have any of the following symptoms: Nausea, vomiting, fever greater that 101.5, swelling, chest pain, shortness of breath, increased pain/redness/drainage/odor for your incision site, numbness/ tingling, or any other concerning symptoms. ACTIVITY: Always keep your arm in the sling. Do not raise your arm away from your body. Do not use your arm to help with getting in or out of bed. No weight bearing permitted. Only perform those exercises given to you by your therapist. MEDICATIONS: Upon discharge resume your home medications. Take all the medications as prescribed. Take a stool softener if taking narcotic pain medications. Stool softeners are only effective if you drink enough fluids. Drink 6-8 glass of water or fluids a day, unless this is not allowed for another health problem. Despite using stool softeners, if you haven't had a bowel movement in 3 days, please switch to a gentle laxative. Gentle laxatives are sold over the counter. You should have a bowel movement within 24 hours, if not call the office. You will be discharged from the hospital with a prescription for pain medication. You are encouraged to decrease the use of narcotic pain medication as tolerated. Should you require a refill, please call the office. [facility] prescribes narcotic pain medication for only 4-6 weeks after surgery. If you require pain medication beyond this time period, you may be referred to your Primary Care Physician or to the Pain Clinic for further evaluation. Plan ahead for refills on pain medication as many narcotics either need to be picked up at the office or mailed. It is best to call 48-72 hours in advance of needing a prescription refill so you don't run out of medication. To help control the post-operative pain, you may take NSAIDs (Aleve,Advil, Motrin, Ibuprofen, Naprosyn) or Tylenol as prescribed on the bottle in addition to the pain medication. WOUND CARE: Leave the dressing on for 7-10 days. You may change the dressing if it becomes saturated greater than 50%. Do not get the dressing wet at anytime. Wash your hands with antibacterial soap, rinse and dry prior to any wound care. If you have rafy the visiting nurse or rehab facility can remove the stapes 10-14 days after surgery and place steri-strips across the wound. Leave the steri-strips in place until they fall off on their own. You may let water from the shower run on top of the steri-strips. If you do not have a visiting nurse or rehab facility, you will need to return to the office at 10-14 days for the rafy to be removed. If you have itching or redness around the dressing call the office. FOLLOW-UP: Please follow up with your surgeon in the orthopedic clinic, as scheduled Referrals: Linda Rooney, SHAW[facility] [Physician Torch Straightener] - 09/09/16 9:30 am Nicolas Harper MD [Primary Care Provider] - Prescriptions: Acetaminophen w/Cod 300-30 mg [Tylenol w/Codeine #3] 1 each PO Q6HR #14 tablet Amoxicillin/Clavulanate [Augmentin] 875 mg PO BIDWM 10 Days Aspirin 81 mg PO DAILY #30 tab.chew Folic Acid 1 mg PO DAILY #30 tablet LORazepam [Ativan] 1 mg PO HS #10 tablet Nicotine Patch [Nicoderm] 21 mg TD DAILY #30 patch.td24 Pantoprazole Sodium 40 mg PO DAILY 30 Days Thiamine (B-1) [Vitamin B-1] 100 mg PO DAILY #30 tablet <Cj Gilmore - Last Filed: 08/30/16 12:23> Date of Encounter: 08/24/16 Time of Encounter: 14:00 - Time Spent With Patient Total time spent is greater than 50% in coordination of care (as documented) at patient's floor/unit and/or counseling patient: GI History of Present Illness - Data of Consult Requesting Physician: Aamir Redmond MD - Consult Narrative History of present illness: Mr. Verduzco is a 56 year old male - Constitutional Vitals: Temp Pulse Resp BP Pulse Ox 98.3 F 89 18 168/88 97 08/30/16 11:15 08/30/16 11:15 08/30/16 11:15 08/30/16 11:15 08/30/16 11:15 Results - Labs CBC & Chem 7: 08/30/16 04:40 08/30/16 04:40 Labs: Last Result Calcium 8.6 mg/dL (8.6-10.8) 08/30/16 04:40 Ferritin 911 ng/ml (22-275) H 08/24/16 20:25 Troponin I 0.00 ng/mL (0-0.03) 08/23/16 19:10 Urine Opiates Screen Negative ng/mL (Yludpo=747) 08/23/16 19:27 Entire Visit Hgb 9.0 g/dL (12.9-16.9) L 08/30/16 04:40 Hct 26.6 % (37.5-50.1) L 08/30/16 04:40 PT 11.9 Seconds (9.4-12.1) 08/24/16 04:00 Ferritin 911 ng/ml (22-275) H 08/24/16 20:25 Total Bilirubin 1.2 mg/dL (0.2-1.2) 08/27/16 12:30 AST 43 Units/L (5-34) H 08/27/16 12:30 ALT 69 Units/L (0-55) H 08/27/16 12:30 Qvjhd-4-Azzmgjmglft 221 mg/dL (90-200) H 08/24/16 20:25 Ceruloplasmin 19 mg/dL (17-54) 08/24/16 20:25 F-Actin IgG Antibody 5 Units (0-19) 08/24/16 20:25 E. coli (PCR) Not Detected (Not Detect) 08/23/16 21:53 - ABG ABG results: PT/INR, D-dimer PT 11.9 Seconds (9.4-12.1) 08/24/16 04:00 - Attending Attestation I examined this patient and my medical decision-making was reviewed with the OVERHEAD CRANE TECHNICIAN/PA/Advanced Practice Nurse/Resident Physician. I agree with the documented findings, disposition and treatment plan as described except to the extent set forth below.
[2016-08-24] MEDS: *HR* Morphine 2 MG/ML SYRINGE IVP PRN ×2 (15:09→20:24)
[2016-08-24 21:35] LABS: Hepatitis B Surface Antigen Nonreactive (Nonreactive)
--- NOTE | 2016-08-24 23:54 | Electrocardiograph Report ---
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
[2016-08-25] MEDS: Pantoprazole 40 MG in 0.9 % Sodium Chloride Mini Bag 100 ML IVC SCH ×5 (00:21→18:38)
[2016-08-25 00:34] LABS: Red Blood Count 2.45 M/mcL (4.19-5.50)
[2016-08-25 00:35] LABS: Hematocrit 20.4 % (37.5-50.1); Hemoglobin 7.3 g/dL (12.9-16.9); Immature Platelets 4.8 % (1.1-6.1); Mean Corpuscular HGB Conc 35.8 g/dL (31.6-35.5); Mean Corpuscular Hemoglobin 29.8 pg (28.0-33.3); Mean Corpuscular Volume 83.3 fL (83.0-100.0); Mean Platelet Volume 9.3 fL (9.4-12.4); Red Cell Distribution Width 13.6 % (11.5-14.5)
[2016-08-25] MEDS: *HR* Morphine 2 MG/ML SYRINGE IVP PRN ×4 (02:23→21:39)
[2016-08-25] MEDS ORDERED: 0.9 % Sodium Chloride 250 ML ONE (04:11)
[2016-08-25 05:08] LABS: BUN/Creatinine Ratio 6 (6-26); Blood Urea Nitrogen 4 mg/dL (8-26); Carbon Dioxide 24 mEq/L (19-29); Chloride 93 mEq/L (98-109); Glucose 88 mg/dL (70-99); Osmolality,Calculated 254 (280-300); Potassium 3.5 mEq/L (3.5-4.5); Sodium 124 mEq/L (136-145); eGFR For African Americans > 60 (> 60); eGFR For Non-African Americans > 60 (> 60)
[2016-08-25 05:11] LABS: Acinetobacter baumannii by PCR Not Detected (Not Detect); Candida albicans by PCR Not Detected (Not Detect); Candida glabrata by PCR Not Detected (Not Detect); Candida krusei by PCR Not Detected (Not Detect); Candida parapsilosis by PCR Not Detected (Not Detect); Candida tropicalis by PCR Not Detected (Not Detect); Enterococcus by PCR Not Detected (Not Detect); Escherichia coli by PCR Not Detected (Not Detect); Klebsiella oxytoca by PCR Not Detected (Not Detect); Klebsiella pneumoniae by PCR Not Detected (Not Detect); Pseudomonas aeruginosa by PCR Not Detected (Not Detect); Serratia marcescens by PCR Not Detected (Not Detect); Staphylococcus aureus by PCR Not Detected (Not Detect); Streptococcus agalactiae(B)PCR Not Detected (Not Detect); Streptococcus by PCR Not Detected (Not Detect); Streptococcus pneumoniae PCR Not Detected (Not Detect); Streptococcus pyogenes (A) PCR Not Detected (Not Detect); mecA Methicillin-Resist Gene Not Detected (Not Detect)
--- NOTE | 2016-08-25 08:31 | Nephrology Progress Note ---
Date of Encounter: 08/25/16 Time of Encounter: 08:29 - Assessment and Plan (1) Hyponatremia Current Visit: Yes Status: Acute Patient has euvolemic hyponatremia likely related to alcohol abuse and low solute intake. Serum sodium is improving with the administration of IV saline. I will continue the current IV fluids. We will continue to monitor his sodium. (2) Left humeral fracture Current Visit: Yes Status: Acute Qualifiers: Encounter type: initial encounter Humerus Location: proximal Fracture type: closed Fracture morphology: other fracture Fracture alignment: nondisplaced Qualified Code(s): S42.295A - Other nondisplaced fracture of upper end of left humerus, initial encounter for closed fracture (3) Alcohol intoxication Current Visit: Yes Status: Acute Qualifiers: Complication of substance-induced condition: with unspecified complication Qualified Code(s): F10.129 - Alcohol abuse with intoxication, unspecified Subjective Interval history: The patient voices no new complaints. Serum sodium continues to slowly improve. He continues on a normal saline IV. Cortisol is normal. TSH is normal. Objective - Vital Signs Vital signs: Vital Signs Temp Pulse Resp BP Pulse Ox 08/25/16 07:37 100.7 F H 08/25/16 06:08 98 14 133/91 95 08/25/16 05:00 99.2 F 98 14 136/85 95 08/25/16 04:48 99.2 F 97 14 130/77 94 08/25/16 04:33 98.8 F 99 16 109/71 08/25/16 04:00 98.8 F 100 16 109/71 94 08/25/16 03:32 98 16 126/77 92 08/25/16 02:00 108 16 164/87 93 08/25/16 01:00 97 18 132/73 94 08/25/16 00:00 97 16 116/80 95 08/24/16 23:45 99.6 F 101 16 123/78 96 08/24/16 22:00 108 20 121/82 95 08/24/16 21:00 103 22 140/87 94 08/24/16 19:56 99.6 F 08/24/16 19:50 107 08/24/16 19:40 107 20 140/78 97 08/24/16 18:19 109 20 136/79 98 08/24/16 17:35 111 20 158/89 98 08/24/16 16:23 98.9 F 08/24/16 16:20 96 20 158/89 97 08/24/16 14:23 112 20 149/92 98 08/24/16 13:33 100 20 145/89 98 08/24/16 12:28 112 18 133/118 98 08/24/16 12:00 98.3 F 08/24/16 11:08 118 20 169/85 93 08/24/16 10:16 106 20 165/96 97 08/24/16 09:04 103 20 160/86 96 Intake and Output 08/24/16 08/25/16 08/25/16 23:59 07:59 15:59 Intake Total 1100 / 1100 200 / 200 Output Total 500 / 500 825 / 825 Balance 600 / 600 -625 / -625 Intake: IV Fluids 1100 / 1100 200 / 200 0.9 % Sodium Chloride 1, 1000 / 1000 000 ML @ 80 mls/hr IVC . [id number] ESTEFANI Rx#: [id number] Protonix 40 MG In 0.9 % 100 / 100 200 / 200 Sodium Chloride (Mini-Bag +) 100 ML @ 20 mls/hr IVC .Q5H ESTEFANI Rx#: [id number] Oral 0 / 0 Blood Product 0 / 0 Rbcs Leuko Poor As-1 0 / 0 Unit [id number] Output: Urine 500 / 500 825 / 825 Other: Stool Size Small Stool Consistency soft Stool Color Brown # Bowel Movements 2 Weight 68.039 kg Blood Glucose* 113 101 - General Appearance Exam: Patient is alert and oriented. He is in no acute distress. Lungs benchpress sounds otherwise clear. Heart regular rhythm. Abdomen is benign. There is no peripheral edema. - Lab 08/25/16 00:20 08/25/16 04:30 Most recent lab results Calcium 8.0 mg/dL (8.6-10.8) L 08/25/16 04:30 Phosphorus 2.5 mg/dL (2.3-4.7) 08/24/16 04:00 Magnesium 1.4 mg/dL (1.6-2.6) L 08/24/16 04:00 Consult Discharge Plan - Plan Referrals: Nicolas Harper MD [Primary Care Provider] -
[2016-08-25] MEDS: 0.9 % Sodium Chloride 1,000 ML IVC SCH ×2 (08:33→18:31)
[2016-08-25 08:54] LABS: Basophils % 0.2 %; Hematocrit 23.7 % (37.5-50.1); Hemoglobin 8.3 g/dL (12.9-16.9); Immature Granulocytes % 0.9 % (0-4); Lymphocytes % 10.5 %; Mean Corpuscular Hemoglobin 29.3 pg (28.0-33.3); Mean Corpuscular Volume 83.7 fL (83.0-100.0); Red Blood Count 2.83 M/mcL (4.19-5.50)
[2016-08-25 08:56] LABS: Eosinophils % 0.5 %; Immature Platelets 5.3 % (1.1-6.1); Lymphocytes # 0.7 K/mcL (0.6-4.6); Mean Platelet Volume 9.4 fL (9.4-12.4); Monocytes # 0.5 K/mcL (0.0-1.3); Monocytes % 7.3 %; Neutrophils # 5.3 K/mcL (1.6-8.9); Segmented Neutrophils % 80.6 %
[2016-08-25 09:08] LABS: Platelet Count 91 K/mcL (140-400)
[2016-08-25] MEDS: Nicotine 21 MG PATCH.TD24 TD SCH (09:54)
[2016-08-25 10:00] LABS: Hepatitis A Antibody IgM Nonreactive (Nonreactive); Hepatitis B Core IgM Nonreactive (Nonreactive); Hepatitis C Virus Antibody Nonreactive (Nonreactive)
[2016-08-25] MEDS ORDERED: Naloxone 0.4 MG/ML INJ IVP PRN (11:41)
[2016-08-25] MEDS ORDERED: *HR* Promethazine 25 MG/ML VIAL IVP PRN (11:41)
[2016-08-25] MEDS ORDERED: *HR* LORazepam 2 MG/ML VIAL IVP PRN ×3 (11:41)
[2016-08-25] MEDS ORDERED: *HR* Propofol 200 MG/20 ML VIAL IVP ONE (12:00)
--- NOTE | 2016-08-25 12:49 | Internal Med Progress Note ---
Date of Encounter: 08/25/16 Time of Encounter: 08:35 - Assessment and plan (1) Hyponatremia Current Visit: Yes Status: Acute Assessment and plan: probably related to alcohol abuse, nephrology following, monitor sodium level closely (2) Left humeral fracture Current Visit: Yes Status: Acute Assessment and plan: sling in place, orthopedics following, surgery once patient is medically cleared. Qualifiers: Encounter type: initial encounter Humerus Location: proximal Fracture type: closed Fracture morphology: other fracture Fracture alignment: nondisplaced Qualified Code(s): S42.295A - Other nondisplaced fracture of upper end of left humerus, initial encounter for closed fracture (3) Rhabdomyolysis Current Visit: Yes Status: Acute Assessment and plan: improving, continue IV fluids, nephro following Qualifiers: Rhabdomyolysis type: traumatic Encounter type: initial encounter Qualified Code(s): T79.6XXA - Traumatic ischemia of muscle, initial encounter (4) Alcohol intoxication Current Visit: Yes Status: Acute Assessment and plan: alcohol abuse, counselled about cessation, withdrawal protocol Qualifiers: Complication of substance-induced condition: with unspecified complication Qualified Code(s): F10.129 - Alcohol abuse with intoxication, unspecified (5) Upper GI bleed Current Visit: Yes Status: Acute Assessment and plan: resolved, likely related to alcohol abuse - esophagitis/gastritis - IV Pantoprazole GI following, EGD planned (6) Tobacco abuse Current Visit: Yes Status: Chronic Assessment and plan: NRT, counselled about cessation - Time Spent With Patient 25 - 35 minutes - Subjective Interval history: Patient awake and alert. Not in any distress. Says he feels better now. Denies chest pain or shortness of breath. No fever. Left arm in sling. Complains of left arm pain. Rate sit 5/10. Worse with movement. Improved with pain meds. Hyponatremia slowly improving. No other acute events or complaints. - Constitutional Vitals: Temp Pulse Resp BP Pulse Ox 98.0 F 97 14 139/90 96 08/25/16 11:11 08/25/16 11:45 08/25/16 11:45 08/25/16 11:45 08/25/16 11:45 General appearance: Present: disheveled, A&O X 3, pleasant, no acute distress, answers questions appropriately - Head Head exam: Present: atraumatic - ENT ENT exam: Present: mucous membranes moist - Respiratory Respiratory exam: Present: CTAB. Absent: rhonchi, wheezes - Cardiovascular Cardiovascular exam: Present: +S1, +S2, tachycardia - GI/Abdominal GI/Abdominal exam: Present: soft. Absent: guarding, tenderness - Extremities Exam Extremities exam: Present: radial pulses palpable and symetrical. Absent: cyanotic, pedal edema Additional comments: left humerus fracture, left arm in sling - Neurological Exam Neurological exam: Present: alert, oriented X3, no focal deficits Internal Medicine: Result - Labs CBC & Chem 7: 08/25/16 08:25 08/25/16 04:30 Labs: Short CBC 08/24/16 08/25/16 08/25/16 Range/Units 12:53 00:20 08:25 WBC 6.1 6.6 (4.3-11.1) K/mcL Hgb 8.4 L 7.3 L 8.3 L (12.9-16.9) g/dL Hct 23.0 L 20.4 L 23.7 L (37.5-50.1) % Plt Count 92 L 91 L (140-400) K/mcL Neutrophils # 5.3 (1.6-8.9) K/mcL BMP 08/25/16 08/25/16 00:20 04:30 Sodium 125 L D 124 L Potassium 3.5 Chloride 93 L Carbon Dioxide 24 BUN 4 L Creatinine 0.63 L Glucose 88 Calcium 8.0 L - ABG Interpretation ABG results: PT/INR, D-dimer PT 11.9 Seconds (9.4-12.1) 08/24/16 04:00 - Impressions Impressions Shoulder CT 08/24/16 12:04 IMPRESSION: Acute traumatic comminuted displaced closed fracture involving proximal humerus as above. Associated diffuse soft tissue swelling and subcutaneous edema along with glenohumeral joint effusion. Mild degenerative changes to the glenohumeral joint. Diffuse bone demineralization. D/ / 08/24/2016 15:57:03 Sarmad Moreno MD / Consuelo Wall Interpreting Provider: Sarmad Moreno MD Liver Ultrasound 08/25/16 08:00 IMPRESSION: Diffuse fatty infiltration of the liver. D/ / 08/25/2016 09:23:03 Sarmad Moreno MD / Consuelo Wall Interpreting Provider: Sarmad Moreno MD Consult Discharge Plan - Plan Referrals: Nicolas Harper MD [Primary Care Provider] -
--- NOTE | 2016-08-25 13:33 | Orthopedics Progress Note ---
Date of Encounter: 08/25/16 Time of Encounter: 10:30 - Assessment and Plan (1) Left humeral fracture Current Visit: Yes Status: Acute Qualifiers: Encounter type: subsequent encounter Humerus Location: proximal Fracture type: closed Fracture morphology: other fracture Fracture alignment: nondisplaced Fracture healing: with nonunion Qualified Code(s): S42.295K - Other nondisplaced fracture of upper end of left humerus, subsequent encounter for fracture with nonunion Subjective Principal diagnosis: Left humerus fracture Interval history: Mr. Verduzco doing well since exam yesterday. Upon examination, patient resting comfortably in bed with left arm sling in place. He is alert and oriented x 3, scattered ecchymosis noted to bilateral extremities. Central line noted to right neck. Inspection of his left shoulder reveals significant ecchymosis anterior and posterior extending circumferential left upper arm to the elbow. ROM of all other joints of upper and lower extremities within normal limits. Decreased intentional tremor today compared with yesterday. Calves nontender. Right knee swelling resolved, post-surgical healed scar noted anterior, abrasion noted to anterior right knee with interval healing. Left knee swelling resolved. Patient is neurovascularly intact in bilateral upper and lower extremities. Discussed Mr. Verduzco's situation with him and in discussion he states if he will be inpatient until the weekend he would like to proceed with surgery, if discharged before the weekend he states he would like to have surgery on an outpatient basis. CT scan obtained 08/24/16 reveals acute traumatic comminuted, displaced closed fracture of the proximal humerus with glenohumeral joint effusion. Diffuse bone demineralization also documented. Discussed with Dr. Patrick - Patient to continue in sling until further notice. Given CT results likely patient will need reverse total shoulder replacement. Will plan for surgery while patient is inpatient tomorrow 08/26/16 pending medical clearance. If patient not cleared for surgery tomorrow, will plan for scheduled outpatient surgery for 09/01/16. Will obtain written consent when medical clearance provided. Objective Vital signs: Vital Signs Temp Pulse Resp BP Pulse Ox 08/25/16 12:00 97 08/25/16 11:45 97 14 139/90 96 08/25/16 11:11 98.0 F 08/25/16 10:00 95 16 152/88 95 08/25/16 09:00 96 16 138/86 95 08/25/16 08:42 100.7 F H 101 16 145/82 97 08/25/16 08:00 105 14 150/84 96 08/25/16 07:37 100.7 F H 08/25/16 07:00 95 08/25/16 06:08 98 14 133/91 95 08/25/16 05:00 99.2 F 98 14 136/85 95 08/25/16 04:48 99.2 F 97 14 130/77 94 08/25/16 04:33 98.8 F 99 16 109/71 08/25/16 04:00 98.8 F 100 16 109/71 94 08/25/16 03:32 98 16 126/77 92 08/25/16 02:00 108 16 164/87 93 08/25/16 01:00 97 18 132/73 94 08/25/16 00:00 97 16 116/80 95 08/24/16 23:45 99.6 F 101 16 123/78 96 08/24/16 22:00 108 20 121/82 95 08/24/16 21:00 103 22 140/87 94 08/24/16 19:56 99.6 F 08/24/16 19:50 107 08/24/16 19:40 107 20 140/78 97 08/24/16 18:19 109 20 136/79 98 08/24/16 17:35 111 20 158/89 98 08/24/16 16:23 98.9 F 08/24/16 16:20 96 20 158/89 97 08/24/16 14:23 112 20 149/92 98 08/24/16 13:33 100 20 145/89 98 Intake and Output 08/24/16 08/25/16 08/25/16 23:59 07:59 15:59 Intake Total 1100 / 1100 200 / 200 1565 / 1565 Output Total 500 / 500 825 / 825 300 / 300 Balance 600 / 600 -625 / -625 1265 / 1265 Intake: IV Fluids 1100 / 1100 200 / 200 1200 / 1200 0.9 % Sodium Chloride 1, 1000 / 1000 1000 / 1000 000 ML @ 80 mls/hr IVC . [id number] [facility] Rx#: [id number] Protonix 40 MG In 0.9 % 100 / 100 200 / 200 100 / 100 Sodium Chloride (Mini-Bag +) 100 ML @ 20 mls/hr IVC .Q5H [facility] Rx#: [id number] Rocephin 1,000 MG In 100 / 100 Dextrose 5% (Minibag+) 100 ML 100 ML @ 200 mls/ hr IVPB Q24H [facility] Rx#: [id number] Oral 0 / 0 Blood Product 0 / 0 365 / 365 Rbcs Leuko Poor As-1 0 / 0 365 / 365 Unit [id number] Output: Urine 500 / 500 825 / 825 300 / 300 Other: Stool Size Small Stool Consistency soft Stool Color Brown # Bowel Movements 2 Weight 68.039 kg Blood Glucose* 113 101 106 - Diagnostic Results Shoulder CT: report reviewed, image reviewed - Labs CBC & BMP: 08/25/16 08:25 08/25/16 04:30 Labs: Abnormal lab results RBC 2.83 M/mcL (4.19-5.50) L 08/25/16 08:25 Hgb 8.3 g/dL (12.9-16.9) L 08/25/16 08:25 Hct 23.7 % (37.5-50.1) L 08/25/16 08:25 Plt Count 91 K/mcL (140-400) L 08/25/16 08:25 Sodium 124 mEq/L (136-145) L 08/25/16 04:30 Chloride 93 mEq/L (98-109) L 08/25/16 04:30 BUN 4 mg/dL (8-26) L 08/25/16 04:30 Creatinine 0.63 mg/dL (0.72-1.25) L 08/25/16 04:30 POC Glucose 106 (58-89) H 08/25/16 11:04 Calculated Osmolality 254 (280-300) L 08/25/16 04:30 Uric Acid 3.0 mg/dL (3.5-7.2) L 08/24/16 08:39 Calcium 8.0 mg/dL (8.6-10.8) L 08/25/16 04:30 Magnesium 1.4 mg/dL (1.6-2.6) L 08/24/16 04:00 Ferritin 911 ng/ml (22-275) H 08/24/16 20:25 AST 145 Units/L (5-34) H 08/24/16 04:00 ALT 169 Units/L (0-55) H 08/24/16 04:00 Creatine Kinase 803 Units/L (30-200) H 08/23/16 19:10 Serum Total Protein 5.6 g/dL (6.0-8.3) L 08/24/16 04:00 Albumin 3.2 g/dL (3.5-5.0) L 08/24/16 04:00 Ethyl Alcohol 274 mg/dL (0-10) H 08/23/16 19:10 Staphylococcus sp PCR DETECTED (Not Detect) A 08/23/16 21:53 Consult Discharge Plan - Plan Referrals: Nicolas Harper MD [Primary Care Provider] -
[2016-08-25] MEDS ORDERED: 0.9 % Sodium Chloride 1,000 ML IVC SCH (14:15)
--- NOTE | 2016-08-25 14:20 | Anesthesia Evaluation PreOp ---
Date of Encounter: 08/25/16 Time of Encounter: 14:17 - Past History Planned Operation: egd: admit for acute anemia, rhabdo, humeral fx Cardiac History: HTN, Other (s/p 2 u prbc) Pulmonary History: COPD [place] History: Denies Any Significant HX Other Medical History: Hepatic (elevated lfts on admission) Anesthesia History: No Prior Anesthetic Complications, Past Anesthesia Alcohol Use: heavy, recent Drug use: opiates Medications and Allergies Lisinopril [Zestril] 10 mg PO DAILY 01/27/15 [History] Albuterol Sulfate [Ventolin Hfa] 2 puff IH Q4H PRN 08/23/16 [History] Oxycodone HCl/Acetaminophen [Percocet 10-325 mg Tablet] 1 each PO Q8H PRN [History] Tiotropium [place] [Spiriva Respimat] 2 puff IH DAILY 08/23/16 [History] Allergies Androgenic Anabolic Steroid Adverse Reaction (Verified 07/08/15 11:01) Nausea - Meds/Allergy Pre-op Review Medications Reviewed: Yes Allergies Reviewed: Yes Beta Blockers on Current Med List: No Anesthesia Results - Labs 08/25/16 08:25 08/25/16 04:30 Anesthesia Exam Vital Signs/O2 Sat/Glucose, Most Current Temp Pulse Resp BP Pulse Ox 08/25/16 14:09 98.5 F 94 18 98 08/25/16 12:00 97 08/25/16 11:45 97 14 139/90 96 08/25/16 11:11 98.0 F Height: 1.73 Weight: 68 NPO (# of Hours): >8 - HEENT Pupil (Motor): Pupils equal, EOMI Mallampati: II Teeth: Poor dentition Oral Opening: Greater than 3 - [place] LOC: Oriented [place] Motor: Normal RUE, Normal LUE, Normal RLE, Normal LLE, Normal Face [place] Sensory: Normal: RUE, LUE, RLE, LLE, Face - Cardiac Rhythm: Regular Murmur: None - Pulmonary Breath Sounds: left Rales, left Rhonchi, right Clear Respiratory Effort: Symmetrical Anesthesia Assess/Plan ASA Score: 2 Modified Taj Scale for Level of Consciousness: Cooperative, oriented, and tranquil Anesthetic Plan: MAC Monitoring Plan: Standard Monitors Recovery Plan: Other
[2016-08-25] MEDS ORDERED: Simethicone 40 MG/0.6 ML MLS IR ONE (14:29)
[2016-08-25] MEDS ORDERED: Tetracaine/Benzocaine/Butamben 200MG/SPRAY (100SPY/BOT) MM ONE (14:29)
--- NOTE | 2016-08-25 14:48 | Anesthesia Evaluation Post Op ---
Date of Encounter: 08/25/16 Time of Encounter: 14:46 - Vital Signs Vital Signs: 3 Vital Signs Time 1445 BP 126/75 Pulse 94 Resp 20 O2 Sat 99 - Lungs Lungs: Clear Ascult./Percussion - Airway Airway: Non-obstructed - Cardiovascular Regular Rate - Mental Status Mental Status: Alert & Oriented, Answers Appropriately - Pain Pain Scale: 0 - Nausea Vomiting Nausea Vomiting: Not Present - Hydration Hydration: NPO, Has not voided - Discharge PostOp Status: Transfer Patient to floor
--- NOTE | 2016-08-25 16:08 | Event Note ---
Date of Encounter: 08/25/16 Time of Encounter: 16:[address] Stark regarding medical clearance - other conditions stabilizing so should be appropriate for surgery tomorrow however noted and spoke with Microbiology department regarding positive blood cultures. Discussed with Dr. Patrick and will continue with plan for surgery tomorrow unless second set of blood cultures turn up positive at which case we will reevaluate. Discussed the above with Dr. Stark who agreed with plan.
[2016-08-25] MEDS ORDERED: Thiamine (B-1) 100 MG, Folic Acid 1 MG, MVI, adult with vitamin K 10 ML in 0.9 % Sodi... IVPB SCH (18:00)
--- NOTE | 2016-08-25 20:42 | Anesthesia Evaluation PreOp ---
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 LFT elevation this admission EtOh hepatitis vs. Rhabdomyolysis), GERD (Gastritis/Esophagitis treated w/IV Pantoprazole this admission. Admitted w/ likely UGI Bleed) Anesthesia History: Past Anesthesia (EGD on 08/25/2016, R-TKR 2013) Alcohol Use: heavy (Admitted w/Beer Potomania (Beer induced dilutional HypoNatremia)), recent Medications and Allergies Lisinopril [Zestril] 10 mg PO DAILY 01/27/15 [History] Albuterol Sulfate [Ventolin Hfa] 2 puff IH Q4H PRN 08/23/16 [History] Oxycodone HCl/Acetaminophen [Percocet 10-325 mg Tablet] 1 each PO Q8H PRN [History] Tiotropium [place] [Spiriva Respimat] 2 puff IH DAILY 08/23/16 [History] Allergies Androgenic Anabolic Steroid Adverse Reaction (Verified 07/08/15 11:01) Nausea - Meds/Allergy Pre-op Review Medications Reviewed: Yes Allergies Reviewed: Yes Beta Blockers on Current Med List: No Anesthesia Results - Labs 08/25/16 08:25 08/25/16 04:30 Laboratory Results WBC 6.6 K/mcL (4.3-11.1) 08/25/16 08:25 RBC 2.83 M/mcL (4.19-5.50) L 08/25/16 08:25 Hgb 8.3 g/dL (12.9-16.9) L 08/25/16 08:25 Hct 23.7 % (37.5-50.1) L 08/25/16 08:25 MCV 83.7 fL (83.0-100.0) 08/25/16 08:25 MCH 29.3 pg (28.0-33.3) 08/25/16 08:25 MCHC 35.0 g/dL (31.6-35.5) 08/25/16 08:25 RDW 14.0 % (11.5-14.5) 08/25/16 08:25 Plt Count 91 K/mcL (140-400) L 08/25/16 08:25 MPV 9.4 fL (9.4-12.4) 08/25/16 08:25 Immature Gran % 0.9 % (0-4) 08/25/16 08:25 Seg Neutrophils % 80.6 % 08/25/16 08:25 Lymphocytes % 10.5 % 08/25/16 08:25 Monocytes % 7.3 % 08/25/16 08:25 Eosinophils % 0.5 % 08/25/16 08:25 Basophils % 0.2 % 08/25/16 08:25 Neutrophils # 5.3 K/mcL (1.6-8.9) 08/25/16 08:25 Lymphocytes # 0.7 K/mcL (0.6-4.6) 08/25/16 08:25 Monocytes # 0.5 K/mcL (0.0-1.3) 08/25/16 08:25 Eosinophils # 0.0 K/mcL (0.0-0.6) 08/25/16 08:25 Basophils # 0.0 K/mcL (0.0-0.2) 08/25/16 08:25 Immature Plt Fraction 5.3 % (1.1-6.1) 08/25/16 08:25 PT 11.9 Seconds (9.4-12.1) 08/24/16 04:00 INR 1.1 08/24/16 04:00 Sodium 124 mEq/L (136-145) L 08/25/16 04:30 Potassium 3.5 mEq/L (3.5-4.5) 08/25/16 04:30 Chloride 93 mEq/L (98-109) L 08/25/16 04:30 Carbon Dioxide 24 mEq/L (19-29) 08/25/16 04:30 BUN 4 mg/dL (8-26) L 08/25/16 04:30 Creatinine 0.63 mg/dL (0.72-1.25) L 08/25/16 04:30 Est GFR ( Amer) > 60 (> 60) 08/25/16 04:30 Est GFR (Non-Af Amer) > 60 (> 60) 08/25/16 04:30 BUN/Creatinine Ratio 6 (6-26) 08/25/16 04:30 Glucose 88 mg/dL (70-99) 08/25/16 04:30 POC Glucose 106 (58-89) H 08/25/16 11:04 Calculated Osmolality 254 (280-300) L 08/25/16 04:30 Uric Acid 3.0 mg/dL (3.5-7.2) L 08/24/16 08:39 Calcium 8.0 mg/dL (8.6-10.8) L 08/25/16 04:30 Phosphorus 2.5 mg/dL (2.3-4.7) 08/24/16 04:00 Magnesium 1.4 mg/dL (1.6-2.6) L 08/24/16 04:00 Ferritin 911 ng/ml (22-275) H 08/24/16 20:25 Total Bilirubin 1.1 mg/dL (0.2-1.2) 08/24/16 04:00 AST 145 Units/L (5-34) H 08/24/16 04:00 ALT 169 Units/L (0-55) H 08/24/16 04:00 Alkaline Phosphatase 68 Units/L (38-126) 08/24/16 04:00 Creatine Kinase 803 Units/L (30-200) H 08/23/16 19:10 Troponin I 0.00 ng/mL (0-0.03) 08/23/16 19:10 Serum Total Protein 5.6 g/dL (6.0-8.3) L 08/24/16 04:00 Albumin 3.2 g/dL (3.5-5.0) L 08/24/16 04:00 Globulin 2.4 g/dL (2.4-3.5) 08/24/16 04:00 Albumin/Globulin Ratio 1.3 (1.1-2.2) 08/24/16 04:00 TSH 1.393 mcIU/mL (0.350-4.840) 08/24/16 08:39 Random Cortisol 21.3 mcg/dl 08/24/16 08:39 Urine Osmolality 332 mOsm/kg (300-1090) 08/24/16 10:49 Urine Opiates Screen Negative ng/mL (Nextmy=059) 08/23/16 19:27 Ur Barbiturates Screen Negative ng/mL (Urzpls=025) 08/23/16 19:27 Ur Phencyclidine Scrn Negative ng/mL (Cutoff=25) 08/23/16 19:27 Ur Amphetamines Screen Negative ng/mL (Lazcoy=8633) 08/23/16 19:27 U Benzodiazepines Scrn Negative ng/mL (Bjgxwm=959) 08/23/16 19:27 Urine Cocaine Screen Negative ng/mL (Cutoff= 300) 08/23/16 19:27 U Marijuana (THC) Screen Negative ng/mL (Cutoff = 50) 08/23/16 19:27 Ethyl Alcohol 274 mg/dL (0-10) H 08/23/16 19:10 A. baumannii (PCR) Not Detected (Not Detect) 08/23/16 21:53 [place] albicans (PCR) Not Detected (Not Detect) 08/23/16 21:53 C. glabrata (PCR) Not Detected (Not Detect) 08/23/16 21:53 C. krusei (PCR) Not Detected (Not Detect) 08/23/16 21:53 C. parapsilosis (PCR) Not Detected (Not Detect) 08/23/16 21:53 C. tropicalis (PCR) Not Detected (Not Detect) 08/23/16 21:53 Enterobacteriac sp PCR Not Detected (Not Detect) 08/23/16 21:53 E. cloacae complex PCR Not Detected (Not Detect) 08/23/16 21:53 Enterococcus sp PCR Not Detected (Not Detect) 08/23/16 21:53 E. coli (PCR) Not Detected (Not Detect) 08/23/16 21:53 H. influenzae (PCR) Not Detected (Not Detect) 08/23/16 21:53 Hepatitis A IgM Ab Nonreactive (Nonreactive) 08/24/16 20:25 Hep Bs Antigen Nonreactive (Nonreactive) 08/24/16 20:25 Hep B Core IgM Ab Nonreactive (Nonreactive) 08/24/16 20:25 Hepatitis C Ab Screen Nonreactive (Nonreactive) 08/24/16 20:25 Klebsiella oxytoca PCR Not Detected (Not Detect) 08/23/16 21:53 Klebsiella pneumoniae Not Detected (Not Detect) 08/23/16 21:53 List. monocytogenes PCR Not Detected (Not Detect) 08/23/16 21:53 N. meningitidis (PCR) Not Detected (Not Detect) 08/23/16 21:53 Proteus species (PCR) Not Detected (Not Detect) 08/23/16 21:53 Serratia marcescens PCR Not Detected (Not Detect) 08/23/16 21:53 Staphylococcus sp PCR DETECTED (Not Detect) A 08/23/16 21:53 Staph aureus (PCR) Not Detected (Not Detect) 08/23/16 21:53 mecA-Methicil Res Gene Not Detected (Not Detect) 08/23/16 21:53 Streptococcus sp PCR Not Detected (Not Detect) 08/23/16 21:53 Group A Strep DNA Not Detected (Not Detect) 08/23/16 21:53 Group B Strep (PCR) Not Detected (Not Detect) 08/23/16 21:53 Strep pneumoniae (PCR) Not Detected (Not Detect) 08/23/16 21:53 P. aeruginosa (PCR) Not Detected (Not Detect) 08/23/16 21:53 Xavi/B-Vanco Res Genes N/A (Not Detect) 08/23/16 21:53 KPC (blaKPC) Detect PCR N/A (Not Detect) 08/23/16 21:53 Blood Type A POSITIVE 08/24/16 04:00 Antibody Screen NEGATIVE 08/24/16 04:00 Crossmatch See Detail 08/24/16 04:00 Impressions Abdomen/Pelvis CT 08/23/16 18:28 IMPRESSION: Acute fracture of the proximal left humerus with surrounding soft tissue swelling and edema. Multiple remote left-sided rib fractures. Scattered, nonspecific ground-glass nodular infiltrates within both lungs. Thickened, edematous lower esophagus which may reflect esophagitis. Fatty liver. D/ / Khoi Bunch MD / Khoi Bunch MD Interpreting Provider: Khoi Bunch MD Cervical Spine CT 08/23/16 18:29 IMPRESSION: 1. No convincing acute osseous finding to account for patient's neck pain; however, image quality is degraded by motion secondary to hiccups. If patient's neck pain persists, consider repeating CT once hiccups have resolved. 2. Moderate degenerative disc disease at C5-C6 with reversal of the cervical lordosis at C4-C5 with chronic wedge deformities of C4 and C5. D/ / 08/23/2016 19:24:19 Nils Alford MD / priyanka Interpreting Provider: Nils Alford MD Head CT 08/23/16 18:29 IMPRESSION: Motion compromised negative head CT. D/ / Kapil Darden MD / Kapil Darden MD Interpreting Provider: Kapil Darden MD Chest CT 08/23/16 18:31 IMPRESSION: Acute fracture of the proximal left humerus with surrounding soft tissue swelling and edema. Multiple remote left-sided rib fractures. Scattered, nonspecific ground-glass nodular infiltrates within both lungs. Thickened, edematous lower esophagus which may reflect esophagitis. Fatty liver. D/ / Khoi Bunch MD / Khoi Bunch MD Interpreting Provider: Khoi Bunch MD Humerus X-Ray 08/23/16 18:33 IMPRESSION: Comminuted, impacted left humeral neck fracture. D/ / Giuseppe Burks MD / Giuseppe Burks MD Interpreting Provider: Giuseppe Burks MD Chest X-Ray 08/23/16 20:57 IMPRESSION: A right internal jugular venous catheter has been placed with the tip in satisfactory position as above. No other change when compared with the prior study from earlier [facility]. D/ / Miguel Bobo MD / Miguel Bobo MD Interpreting Provider: Miguel Bobo MD Shoulder CT 08/24/16 12:04 IMPRESSION: Acute traumatic comminuted displaced closed fracture involving proximal humerus as above. Associated diffuse soft tissue swelling and subcutaneous edema along with glenohumeral joint effusion. Mild degenerative changes to the glenohumeral joint. Diffuse bone demineralization. D/ / 08/24/2016 15:57:03 Sarmad Moreno MD / Consuelo Wall Interpreting Provider: Sarmda Moreno MD Liver Ultrasound 08/25/16 08:00 IMPRESSION: Diffuse fatty infiltration of the liver. D/ / 08/25/2016 09:23:03 Sarmad Moreno MD / Consuelo Wall Interpreting Provider: Sarmad Moreno MD Knee X-Ray 08/25/16 08:19 IMPRESSION: 1. Stable right knee arthroplasty 2. Stable posttraumatic changes involving the proximal tibia and proximal fibula diaphysis. 3. No significant change compared to 02/03/2016. D/ / 08/25/2016 17:46:36 Giuseppe Tellez MD / chino Interpreting Provider: Giuseppe Tellez MD - Imaging EKG: image reviewed (106 ) Anesthesia Exam Vital Signs Temp Pulse Resp BP Pulse Ox 08/25/16 18:53 98.5 F 99 16 148/86 96 08/25/16 16:15 97.9 F 87 18 166/89 95 08/25/16 15:45 98.3 F 98 18 169/84 98 08/25/16 15:15 98.2 F 92 18 159/78 98 08/25/16 14:09 98.5 F 94 18 98 08/25/16 12:00 97 08/25/16 11:45 97 14 139/90 96 08/25/16 11:11 98.0 F 08/25/16 10:00 95 16 152/88 95 08/25/16 09:00 96 16 138/86 95 08/25/16 08:42 100.7 F H 101 16 145/82 97 08/25/16 08:00 105 14 150/84 96 08/25/16 07:37 100.7 F H 08/25/16 07:00 95 08/25/16 06:08 98 14 133/91 95 08/25/16 05:00 99.2 F 98 14 136/85 95 08/25/16 04:48 99.2 F 97 14 130/77 94 08/25/16 04:33 98.8 F 99 16 109/71 08/25/16 04:00 98.8 F 100 16 109/71 94 08/25/16 03:32 98 16 126/77 92 08/25/16 02:00 108 16 164/87 93 08/25/16 01:00 97 18 132/73 94 08/25/16 00:00 97 16 116/80 95 08/24/16 23:45 99.6 F 101 16 123/78 96 08/24/16 22:00 108 20 121/82 95 08/24/16 21:00 103 22 140/87 94 Intake and Output 08/25/16 08/25/16 08/25/16 07:59 15:59 23:59 Intake Total 200 / 200 1765 / 1765 340 / 340 Output Total 825 / 825 700 / 700 0 / 0 Balance -625 / -625 1065 / 1065 340 / 340 Intake: IV Fluids 200 / 200 1400 / 1400 0.9 % Sodium Chloride 1, 1200 / 1200 000 ML @ 50 mls/hr IVC . Q20H [facility] Rx#:[id number] Protonix 40 MG In 0.9 % 200 / 200 100 / 100 Sodium Chloride (Mini-Bag +) 100 ML @ 20 mls/hr IVC .Q5H [facility] Rx#: [id number] Rocephin 1,000 MG In 100 / 100 Dextrose 5% (Minibag+) 100 ML 100 ML @ 200 mls/ hr IVPB Q24H [facility] Rx#: [id number] Oral 0 / 0 340 / 340 Blood Product 0 / 0 365 / 365 Rbcs Leuko Poor As-1 0 / 0 365 / 365 Unit [id number] Output: Urine 825 / 825 700 / 700 0 / 0 Other: Blood Glucose* 101 106 Height: 5'8" Weight: 150# BMI = 23 NPO (# of Hours): MNoc - HEENT Pupil (Motor): Pupils equal, EOMI Mallampati: II Teeth: Edentulous Oral Opening: Greater than 3 - 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 Bea Cristina MD
[2016-08-26] MEDS: 0.9 % Sodium Chloride 1,000 ML IVC SCH (00:08)
[2016-08-26] MEDS: *HR* Morphine 2 MG/ML SYRINGE IVP PRN ×2 (03:57→10:05)
[2016-08-26 04:07] LABS: Basophils % 0.3 %; Hematocrit 23.6 % (37.5-50.1); Immature Granulocytes % 0.8 % (0-4); Mean Corpuscular Volume 84.3 fL (83.0-100.0)
[2016-08-26 04:09] LABS: Eosinophils # 0.1 K/mcL (0.0-0.6); Eosinophils % 1.4 %; Hemoglobin 8.2 g/dL (12.9-16.9); Immature Platelets 4.6 % (1.1-6.1); Lymphocytes # 0.8 K/mcL (0.6-4.6); Lymphocytes % 13.3 %; Mean Corpuscular HGB Conc 34.7 g/dL (31.6-35.5); Mean Corpuscular Hemoglobin 29.3 pg (28.0-33.3); Mean Platelet Volume 9.5 fL (9.4-12.4); Monocytes # 0.5 K/mcL (0.0-1.3); Monocytes % 7.4 %; Neutrophils # 4.8 K/mcL (1.6-8.9); Platelet Count 100 K/mcL (140-400); Red Cell Distribution Width 14.3 % (11.5-14.5); Segmented Neutrophils % 76.8 %
[2016-08-26 04:14] LABS: BUN/Creatinine Ratio 5 (6-26); Calcium 8.2 mg/dL (8.6-10.8); Carbon Dioxide 24 mEq/L (19-29); Chloride 94 mEq/L (98-109); Glucose 88 mg/dL (70-99); Osmolality,Calculated 260 (280-300); Potassium 3.1 mEq/L (3.5-4.5); Sodium 127 mEq/L (136-145); eGFR For African Americans > 60 (> 60); eGFR For Non-African Americans > 60 (> 60)
[2016-08-26 04:15] LABS: Blood Urea Nitrogen 3 mg/dL (8-26)
[2016-08-26] MEDS: Pantoprazole 40 MG in 0.9 % Sodium Chloride Mini Bag 100 ML IVC SCH ×3 (05:39→10:09)
--- NOTE | 2016-08-26 07:54 | Nephrology Progress Note ---
Date of Encounter: 08/26/16 Time of Encounter: 07:52 - Assessment and Plan (1) Hyponatremia Current Visit: Yes Status: Acute Patient has euvolemic hyponatremia likely related to alcohol abuse and low solute intake. The patient is currently nothing by mouth so the maintenance IV of normal saline will be continued. He requires potassium supplementation. (2) Left humeral fracture Current Visit: Yes Status: Acute Qualifiers: Encounter type: subsequent encounter Humerus Location: proximal Fracture type: closed Fracture morphology: other fracture Fracture alignment: nondisplaced Fracture healing: with nonunion Qualified Code(s): S42.295K - Other nondisplaced fracture of upper end of left humerus, subsequent encounter for fracture with nonunion (3) Alcohol intoxication Current Visit: Yes Status: Acute Qualifiers: Complication of substance-induced condition: with unspecified complication Qualified Code(s): F10.129 - Alcohol abuse with intoxication, unspecified Subjective Principal diagnosis: Left humerus fracture Interval history: The patient denies any new complaints. She does have a low-grade fever. I am told by his nurse that the patient is scheduled for shoulder repair later today. Sodium is improving. Potassium is low and he will require supplementation. EGD results of been noted. Blood culture results of also been noted. Objective - Vital Signs Vital signs: Vital Signs Temp Pulse Resp BP Pulse Ox 08/26/16 03:21 99.0 F 102 16 166/94 96 08/25/16 23:40 100.3 F H 96 14 165/84 97 08/25/16 18:53 98.5 F 99 16 148/86 96 08/25/16 16:15 97.9 F 87 18 166/89 95 08/25/16 15:45 98.3 F 98 18 169/84 98 08/25/16 15:15 98.2 F 92 18 159/78 98 08/25/16 14:09 98.5 F 94 18 98 08/25/16 12:00 97 08/25/16 11:45 97 14 139/90 96 08/25/16 11:11 98.0 F 08/25/16 10:00 95 16 152/88 95 08/25/16 09:00 96 16 138/86 95 08/25/16 08:42 100.7 F H 101 16 145/82 97 08/25/16 08:00 105 14 150/84 96 Intake and Output 08/25/16 08/25/16 08/26/16 15:59 23:59 07:59 Intake Total 1765 / 1765 680 / 680 611 / 611 Output Total 700 / 700 725 / 725 950 / 950 Balance 1065 / 1065 -45 / -45 -339 / -339 Intake: IV Fluids 1400 / 1400 100 / 100 611 / 611 0.9 % Sodium Chloride 1, 1200 / 1200 000 ML @ 50 mls/hr IVC . Q20H [facility] Rx#:[id number] Protonix 40 MG In 0.9 % 100 / 100 100 / 100 100 / 100 Sodium Chloride (Mini-Bag +) 100 ML @ 20 mls/hr IVC .Q5H [facility] Rx#: [id number] Vitamin B-1 100 MG 511 / 511 Folvite 1 MG M.v.i. Adult 10 ml In 0.9 % Sodium Chloride 500 ML @ 85.2 mls/hr IVPB DAILY@1800 [facility] Rx#:[id number] Rocephin 1,000 MG In 100 / 100 Dextrose 5% (Minibag+) 100 ML 100 ML @ 200 mls/ hr IVPB Q24H [facility] Rx#: [id number] Oral 580 / 580 Blood Product 365 / 365 Rbcs Leuko Poor As-1 365 / 365 Unit [id number] Output: Urine 700 / 700 725 / 725 950 / 950 Other: # Voids 1 Weight 65.8 kg Blood Glucose* 106 98 Patient Weight 08/26/16 23:59 Weight 65.8 kg - General Appearance Exam: Patient is alert and oriented. He is in no acute distress. Lungs symmetric breath sounds otherwise clear. Heart regular rate and rhythm. There is bruising over the chest. Abdomen is benign. There is no peripheral edema. - Lab 08/26/16 03:54 08/26/16 03:54 Most recent lab results Calcium 8.2 mg/dL (8.6-10.8) L 08/26/16 03:54 Phosphorus 2.5 mg/dL (2.3-4.7) 08/24/16 04:00 Magnesium 1.4 mg/dL (1.6-2.6) L 08/24/16 04:00 Consult Discharge Plan - Plan Referrals: Nicolas Harper MD [Primary Care Provider] -
[2016-08-26] MEDS ORDERED: Nicotine 21 MG PATCH.TD24 TD SCH (09:00)
--- NOTE | 2016-08-26 09:42 | Orthopedics Progress Note ---
Date of Encounter: 08/26/16 Time of Encounter: 07:45 - Assessment and Plan (1) Left humeral fracture Current Visit: Yes Status: Acute Still awaiting final blood culture results and hospitalist review. Patient scheduled for surgery later today for left reverse total shoulder replacement. Procedure, risks, and concerns discussed with patient who verbalized understanding. Written consent obtained. Patient to continue in sling until surgery. Qualifiers: Encounter type: subsequent encounter Humerus Location: proximal Fracture type: closed Fracture morphology: other fracture Fracture alignment: nondisplaced Fracture healing: with nonunion Qualified Code(s): S42.295K - Other nondisplaced fracture of upper end of left humerus, subsequent encounter for fracture with nonunion Subjective Principal diagnosis: Left humerus fracture Interval history: Mr. Verduzco doing well since exam yesterday. Upon examination, patient resting comfortably in bed with left arm sling in place. He is alert and oriented x 3, scattered ecchymosis noted to bilateral extremities. Central line noted to right neck. Inspection of his left shoulder reveals significant ecchymosis anterior and posterior extending circumferential left upper arm to the elbow. ROM of all other joints of upper and lower extremities within normal limits. Decreased intentional tremor today compared with yesterday. Calves nontender. Right knee swelling resolved, post-surgical healed scar noted anterior, abrasion noted to anterior right knee with interval healing. Patient is neurovascularly intact in bilateral upper and lower extremities. CT scan obtained 08/24/16 reveals acute traumatic comminuted, displaced closed fracture of the proximal humerus with glenohumeral joint effusion. Diffuse bone demineralization also documented. Patient scheduled for surgery later today for left reverse total shoulder replacement. Procedure, risks, and concerns discussed with patient who verbalized understanding. Written consent obtained. Patient to continue in sling until after surgery. Still awaiting final blood culture results and hospitalist review. Objective Vital signs: Vital Signs Temp Pulse Resp BP Pulse Ox 08/26/16 07:30 99.2 F 108 16 170/94 95 08/26/16 03:21 99.0 F 102 16 166/94 96 08/25/16 23:40 100.3 F H 96 14 165/84 97 08/25/16 18:53 98.5 F 99 16 148/86 96 08/25/16 16:15 97.9 F 87 18 166/89 95 08/25/16 15:45 98.3 F 98 18 169/84 98 08/25/16 15:15 98.2 F 92 18 159/78 98 08/25/16 14:09 98.5 F 94 18 98 08/25/16 12:00 97 08/25/16 11:45 97 14 139/90 96 08/25/16 11:11 98.0 F 08/25/16 10:00 95 16 152/88 95 Intake and Output 08/25/16 08/26/16 08/26/16 23:59 07:59 15:59 Intake Total 680 / 680 611 / 611 Output Total 725 / 725 950 / 950 600 / 600 Balance -45 / -45 -339 / -339 -600 / -600 Intake: IV Fluids 100 / 100 611 / 611 Protonix 40 MG In 0.9 % 100 / 100 100 / 100 Sodium Chloride (Mini-Bag +) 100 ML @ 20 mls/hr IVC .Q5H [facility] Rx#: [id number] Vitamin B-1 100 MG 511 / 511 Folvite 1 MG M.v.i. Adult 10 ml In 0.9 % Sodium Chloride 500 ML @ 85.2 mls/hr IVPB DAILY@1800 [facility] Rx#:[id number] Oral 580 / 580 Output: Urine 725 / 725 950 / 950 600 / 600 Other: # Voids 1 Weight 65.8 kg Blood Glucose* 98 Patient Weight 08/26/16 23:59 Weight 65.8 kg - Labs CBC & BMP: 08/26/16 03:54 08/26/16 03:54 Labs: Abnormal lab results RBC 2.80 M/mcL (4.19-5.50) L 08/26/16 03:54 Hgb 8.2 g/dL (12.9-16.9) L 08/26/16 03:54 Hct 23.6 % (37.5-50.1) L 08/26/16 03:54 Plt Count 100 K/mcL (140-400) L 08/26/16 03:54 Sodium 127 mEq/L (136-145) L 08/26/16 03:54 Potassium 3.1 mEq/L (3.5-4.5) L 08/26/16 03:54 Chloride 94 mEq/L (98-109) L 08/26/16 03:54 BUN 3 mg/dL (8-26) L 08/26/16 03:54 Creatinine 0.58 mg/dL (0.72-1.25) L 08/26/16 03:54 BUN/Creatinine Ratio 5 (6-26) L 08/26/16 03:54 POC Glucose 98 (58-89) H 08/26/16 05:45 Calculated Osmolality 260 (280-300) L 08/26/16 03:54 Uric Acid 3.0 mg/dL (3.5-7.2) L 08/24/16 08:39 Calcium 8.2 mg/dL (8.6-10.8) L 08/26/16 03:54 Magnesium 1.4 mg/dL (1.6-2.6) L 08/24/16 04:00 Ferritin 911 ng/ml (22-275) H 08/24/16 20:25 AST 145 Units/L (5-34) H 08/24/16 04:00 ALT 169 Units/L (0-55) H 08/24/16 04:00 Creatine Kinase 803 Units/L (30-200) H 08/23/16 19:10 Serum Total Protein 5.6 g/dL (6.0-8.3) L 08/24/16 04:00 Albumin 3.2 g/dL (3.5-5.0) L 08/24/16 04:00 Ethyl Alcohol 274 mg/dL (0-10) H 08/23/16 19:10 Staphylococcus sp PCR DETECTED (Not Detect) A 08/23/16 21:53 Consult Discharge Plan - Plan Referrals: Nicolas Harper MD [Primary Care Provider] -
[2016-08-26] MEDS ORDERED: Vancomycin 1,500 MG in D5% in Water 250 ML IVPB ONE (10:00)
[2016-08-26] MEDS ORDERED: *HR* Midazolam HCl 2 MG/2 ML VIAL ONE ×2 (15:27→15:32)
[2016-08-26] MEDS ORDERED: Lidocaine -MPF 2% 2 ML VIAL ONE (15:27)
[2016-08-26] MEDS ORDERED: *HR* Propofol 200 MG/20 ML VIAL IVP ONE ×2 (15:27→16:56)
[2016-08-26] MEDS ORDERED: *HR* FentaNYL (PF) 100 MCG/2 ML VIAL ONE (15:27)
[2016-08-26] MEDS ORDERED: Bupivacaine/Clonidine Syringe 1 EACH SYRINGE ONE (15:36)
--- NOTE | 2016-08-26 15:58 | Internal Med Progress Note ---
Date of Encounter: 08/26/16 Time of Encounter: 08:30 - Assessment and plan (1) Left humeral fracture Current Visit: Yes Status: Acute Assessment and plan: sling in place, Morphine PRN pain orthopedics - scheduled for surgery stable for surgery Qualifiers: Encounter type: subsequent encounter Humerus Location: proximal Fracture type: closed Fracture morphology: other fracture Fracture alignment: nondisplaced Fracture healing: with nonunion Qualified Code(s): S42.295K - Other nondisplaced fracture of upper end of left humerus, subsequent encounter for fracture with nonunion (2) Blood culture positive for microorganism Current Visit: Yes Status: Acute Assessment and plan: one set of blood cultures positive empiric IV Rocephin, Vanc Hemodynamically stable, no fever (3) Hyponatremia Current Visit: Yes Status: Acute Assessment and plan: Improving probably related to alcohol abuse, continue current meds nephrology following, monitor sodium level closely (4) Rhabdomyolysis Current Visit: Yes Status: Acute Assessment and plan: improving, continue IV fluids, nephro following Qualifiers: Rhabdomyolysis type: traumatic Encounter type: initial encounter Qualified Code(s): T79.6XXA - Traumatic ischemia of muscle, initial encounter (5) Alcohol intoxication Current Visit: Yes Status: Acute Assessment and plan: alcohol abuse, counselled about cessation, withdrawal protocol Qualifiers: Complication of substance-induced condition: with unspecified complication Qualified Code(s): F10.129 - Alcohol abuse with intoxication, unspecified (6) Upper GI bleed Current Visit: Yes Status: Acute Assessment and plan: resolved likely related to alcohol abuse - esophagitis/gastritis - IV Pantoprazole EGD done - esophagitis, multiple non-bleeding ulcers seen (7) Tobacco abuse Current Visit: Yes Status: Chronic Assessment and plan: NRT, counselled about cessation - Time Spent With Patient less than 15 minutes - Subjective Interval history: Patient awake and alert. Not in any distress. Feels better now. Denies chest pain or shortness of breath. No fever. Left arm in sling. Complains of left arm pain. Rates it 5/10. Worse with movement. Improved with pain meds. Surgery scheduled for today. Stable for surgery. Hyponatremia slowly improving. No other acute events or complaints. - Constitutional Vitals: Temp Pulse Resp BP Pulse Ox 98.7 F 94 14 159/85 98 08/26/16 14:00 08/26/16 14:00 08/26/16 14:00 08/26/16 14:00 08/26/16 14:00 General appearance: Present: A&O X 3, pleasant, no acute distress, answers questions appropriately - ENT ENT exam: Present: mucous membranes dry - Neck Neck exam general surgery: Present: supple - Respiratory Respiratory exam: Present: CTAB. Absent: rhonchi, wheezes - Cardiovascular Cardiovascular exam: Present: RRR, +S1, +S2 - GI/Abdominal GI/Abdominal exam: Present: soft. Absent: guarding, tenderness Additional comments: left arm in sling, left humerus fracture - Extremities Exam Extremities exam: Present: radial pulses palpable and symetrical. Absent: cyanotic, pedal edema - Neurological Exam Neurological exam: Present: alert, oriented X3, no focal deficits - Skin Additional comments: bruising over left side of chest Internal Medicine: Result - Labs CBC & Chem 7: 08/26/16 03:54 08/26/16 03:54 Labs: Short CBC 08/26/16 Range/Units 03:54 WBC 6.3 (4.3-11.1) K/mcL Hgb 8.2 L (12.9-16.9) g/dL Hct 23.6 L (37.5-50.1) % Plt Count 100 L (140-400) K/mcL Neutrophils # 4.8 (1.6-8.9) K/mcL BMP 08/26/16 03:54 Sodium 127 L Potassium 3.1 L Chloride 94 L Carbon Dioxide 24 BUN 3 L Creatinine 0.58 L Glucose 88 Calcium 8.2 L - ABG Interpretation ABG results: PT/INR, D-dimer PT 11.9 Seconds (9.4-12.1) 08/24/16 04:00 - Impressions Impressions Knee X-Ray 08/25/16 08:19 IMPRESSION: 1. Stable right knee arthroplasty 2. Stable posttraumatic changes involving the proximal tibia and proximal fibula diaphysis. 3. No significant change compared to 02/03/2016. D/ / 08/25/2016 17:46:36 Giuseppe Tellez MD / [place] Interpreting Provider: Giuseppe Tellez MD Consult Discharge Plan - Plan Referrals: Nicolas Harper MD [Primary Care Provider] -
--- NOTE | 2016-08-26 16:31 | Anesthesia Procedures ---
Date of Encounter: 08/26/16 Time of Encounter: 16:28 Procedures: Anesthesia - Nerve Block Procedure Date: 08/26/16 Time: 16:28 Allergies/Adv Reactions: anabolic steroid Pre-op Diagnosis: l humerus fx Surgical Procedure: l tsr Checklist: Correct Patient Identifier, Correct procedure, History checked Correct side: Left Blood Thinner: No Monitor Applied: EKG, BP, Pulse Oximetry Supplemental Oxygen via Nasal Cannula (L/min): 2 Sedation: Versed (mg): 2 Sedation: Fentanyl (mcg): 100 Indication: Post Op Analgesia (request per dr escamilla) Pre-op Neuro Deficits: No Block Type: Supraclavicular (30), Other (scp/ICB 5/5) Catheter placed: No Sterile Technique: Yes Ultrasound used: Yes Anatomy identified: Yes Visual spread of Local: Yes Neuro Stimulation: No Blood on Needle Aspiration: No Smooth Injection of Local: Yes Pain with Injection of Local: No Prep: Chlorhexadine Needle: 22 x 50 mm Stimuplex Local: 0.25% Bupivicaine w/Clonidine 20 mcg/cc Volume (cc): 40 Number of Attempts: 1 Complications: None/effective block Vitals: see rn note
[2016-08-26] MEDS ORDERED: Ondansetron 4 MG/2 ML VIAL IVP ONE (17:00)
[2016-08-26] MEDS ORDERED: *HR* Promethazine 25 MG/ML VIAL IVP PRN (17:00)
[2016-08-26] MEDS ORDERED: *HR* Labetalol 20 MG/4 ML SYRINGE IVP PRN (17:00)
[2016-08-26] MEDS ORDERED: *HR* Morphine 2 MG/ML SYRINGE IVP PRN (17:00)
[2016-08-26] MEDS ORDERED: *HR* HYDROmorphone (PF) 1 MG/ML SYRINGE IVP PRN (17:00)
--- NOTE | 2016-08-26 17:44 | Orthopedic Operative Note ---
Date of procedure: 08/26/16 Pre-op diagnosis: Displaced left proximal humerus fracture Post-op diagnosis: same Procedure: Procedure: Left Reverse total shoulder replacment, Biceps tenodesis Estimated blood loss: 100 cc Hardware: Metal and polyethylene replacement Arthrex glenoid baseplate: Large , 2 4.5 screws. 1 6.5 screw, glenosphere: 42+4 , humeral stem: 8 , poly insert: 6 constrained Procedural Notes: Displaced proximal humerus fracture. Bone quality Operative procedure: The patient was brought to the operating room and placed on the operating room table. After general anesthesia was administered the operative shoulder was examined. Findings were noted. The patient was placed in the modified beachchair position. All pressure points were padded appropriately. And the head was stabilized in the neutral position. The operative extremity was prepped and draped in the sterile surgical fashion. The patient received IV antibiotics prior to skin incision. A standard deltopectoral approach was made to the operative shoulder. Incision was made to the skin and subcutaneous tissue,hemo stasis was obtained with Bovie cautery. Using careful blunt dissection the cephalic vein was identified and mobilized medially. The deltopectoral interval was developed and the clavipectoral fascia was incised. The lesser tuberosity was identified and tagged with 2 #2 fiber loops and 2 #2 FiberWire suture. The greater tuberosity was identified and tagged with 6 #5 FiberWire suture. The humeral head was removed. Anterior and posterior Bankart retractors were placed to expose the glenoid. The glenoid guide was seated and the centering hole was made. It was reamed with the appropriate reamer. The large baseplate was seated and secured with (2 ) 4.5 screws and one 6.5 screw. The baseplate was irrigated and dried and the 42+4 was seated and secured with the Isidro taper. The Isidro taper was tested and found to be secure the humerus was redislocated and prepared with the diaphyseal reamers, followed by a broaching process up to the appropriate size 8 in 20 degrees of retro-version. Trial reduction found the shoulder to be relocatable. Trial components were removed and [address] on either side of the bicpital groove and filled with #5 fiberwire suture incorporating the biceps, for a later biceps tenodesis and vertical fixation of the tuberosities. The real 8 humeral component was impaced in place in 20 degrees of retroversion. Trial reduction found the shoulder to be relocatable and stable with the 6 constrained. Trial component was removed and the real implant was seated and secured the shoulder was reduced. The shoulder had excellent motion and excellent stability and no evidence of dislocation. The greater tuberosity was reduced and repaired to the implant with 2 # 5 fiberwire sutures. the lesser tuberosity was reduced and repaired to this construct with 2 #5 fiberwire sutures. Vertical fixation of the tuberosities was accomplished with the #5 fiberwire sutures in the humeral shaft, incoporating the bices in a box stitch type repair. The deep tissue was irrigated with pulse irrigation. The deltopectoral interval was closed with a running #1 PDS suture, subcutaneous tissue was irrigated and closed with 0 PDS suture, the skin was closed with rafy. The patient was placed in a sterile dressing, abduction brace and extubated. The patient was then transferred to the recovery room in stable condition. Anesthesia: [place] Surgeon: Moi Patrick Coater Slate: Rocio Jones Condition: stable Disposition: PACU
[2016-08-26] MEDS ORDERED: MOM Conc 10 ML UD.LIQ PO PRN (18:36)
[2016-08-26] MEDS ORDERED: Ondansetron 4 MG/2 ML VIAL IVP PRN (18:36)
[2016-08-26] MEDS ORDERED: Temazepam 15 MG CAPSULE PO PRN (18:36)
[2016-08-26] MEDS ORDERED: Sennosides 8.6 MG TABLET PO PRN (18:36)
--- NOTE | 2016-08-26 18:37 | Anesthesia Evaluation Post Op ---
Date of Encounter: 08/26/16 Time of Encounter: 18:36 - Vital Signs Vital Signs: Vital Signs/O2 Sat/Glucose, Most Current Temp Pulse Resp BP Pulse Ox 08/26/16 18:23 106 18 154/86 98 08/26/16 18:13 108 18 136/86 100 08/26/16 18:03 99.1 F 100 18 126/79 100 - Lungs Lungs: Clear Ascult./Percussion - Airway Airway: Non-obstructed - Cardiovascular Regular Rate (pt not tachy on exam) - Mental Status Mental Status: Alert & Oriented, Answers Appropriately - Pain Pain Scale: 0 - Hydration Hydration: NPO, Has not voided - Discharge PostOp Status: Transfer Patient to floor
[2016-08-26 18:46] LABS: Hematocrit 24.4 % (37.5-50.1); Hemoglobin 8.4 g/dL (12.9-16.9)
[2016-08-26] MEDS ORDERED: *HR* OxyCODONE/APAP 10/325 TABLET PO PRN (20:46)
[2016-08-26] MEDS ORDERED: *HR* LORazepam 2 MG/ML VIAL IVP PRN ×2 (20:47)
[2016-08-26] MEDS ORDERED: Vancomycin 1,000 MG in D5% in Water 250 ML IVPB SCH (22:00)
[2016-08-26] MEDS: Aspirin 325 MG TABLET PO SCH (22:36)
[2016-08-26] MEDS: ceFAZolin 2,000 MG in D5% in Water 100 ML IVPB SCH (23:23)
[2016-08-27] MEDS ORDERED: *HR* LORazepam 1 MG TABLET PO ONE (01:26)
[2016-08-27] MEDS ORDERED: *HR* OxyCODONE/APAP 10/325 TABLET PO SCH (03:24)
[2016-08-27] MEDS: *HR* OxyCODONE/APAP 10/325 TABLET PO PRN ×5 (03:47→21:42)
[2016-08-27] MEDS: Nicotine 21 MG PATCH.TD24 TD SCH ×2 (03:47→08:29)
[2016-08-27 04:21] LABS: Hemoglobin 7.6 g/dL (12.9-16.9)
[2016-08-27] MEDS: Tiotropium 18 MCG inhalation IH SCH (07:50)
[2016-08-27 08:01] LABS: AFP Tumor Marker Non-Pregnant 4 ng/mL (0-9); Alpha-1-Antitrypsin 221 mg/dL (90-200); Ceruloplasmin 19 mg/dL (17-54)
[2016-08-27 08:05] LABS: ANA IgG by ELISA NONE DETECTED (None Detected)
[2016-08-27 08:06] LABS: F-Actin (sm muscle) Ab IgG 5 Units (0-19)
[2016-08-27] MEDS: ceFAZolin 2,000 MG in D5% in Water 100 ML IVPB SCH (08:27)
[2016-08-27] MEDS: Thiamine (B-1) 100 MG TABLET PO SCH (08:28)
[2016-08-27] MEDS: Aspirin 325 MG TABLET PO SCH ×2 (08:29→21:42)
[2016-08-27] MEDS: Folic Acid 1 MG TABLET PO SCH (08:29)
--- NOTE | 2016-08-27 09:28 | Event Note ---
Date of Encounter: 08/27/16 Time of Encounter: 09:28 Patient has no labs yet available today. Yesterday his serum sodium has continued to be improving. I have ordered labs for this morning.
[2016-08-27] MEDS: 0.9 % Sodium Chloride 250 ML IVC SCH ×2 (11:28→17:42)
--- NOTE | 2016-08-27 11:32 | Internal Med Progress Note ---
Date of Encounter: 08/27/16 Time of Encounter: 08:30 - Assessment and plan (1) Left humeral fracture Current Visit: Yes Status: Acute Assessment and plan: sling in place, oxycodone PRN pain Postop day #1 status post left reverse total shoulder replacement and biceps tenodesis Orthopedics following Qualifiers: Encounter type: subsequent encounter Humerus Location: proximal Fracture type: closed Fracture morphology: other fracture Fracture alignment: nondisplaced Fracture healing: with nonunion Qualified Code(s): S42.295K - Other nondisplaced fracture of upper end of left humerus, subsequent encounter for fracture with nonunion (2) Blood culture positive for microorganism Current Visit: Yes Status: Acute Assessment and plan: one set of blood cultures positive Hemodynamically stable, no fever (3) Hyponatremia Current Visit: Yes Status: Acute Assessment and plan: Slowly Improving probably related to alcohol abuse, continue current meds nephrology following, monitor sodium level closely (4) Rhabdomyolysis Current Visit: Yes Status: Acute Assessment and plan: improving, continue IV fluids, nephro following Qualifiers: Rhabdomyolysis type: traumatic Encounter type: initial encounter Qualified Code(s): T79.6XXA - Traumatic ischemia of muscle, initial encounter (5) Alcohol intoxication Current Visit: Yes Status: Acute Assessment and plan: alcohol abuse, counselled about cessation, withdrawal protocol Qualifiers: Complication of substance-induced condition: with unspecified complication Qualified Code(s): F10.129 - Alcohol abuse with intoxication, unspecified (6) Upper GI bleed Current Visit: Yes Status: Acute Assessment and plan: resolved likely related to alcohol abuse - esophagitis/gastritis - IV Pantoprazole EGD done - esophagitis, multiple non-bleeding ulcers seen (7) Tobacco abuse Current Visit: Yes Status: Chronic Assessment and plan: NRT, counselled about cessation - Time Spent With Patient less than 15 minutes - Subjective Interval history: Patient awake and alert. Not in any distress. Denies chest pain or shortness of breath. No fever. Complains of left arm pain at surgical site. Rates it 5/10. Worse with movement. Improved with pain meds. Postop day #1. Status post left reverse total shoulder replacement and biceps tenodesis. Hyponatremia slowly improving. No other acute events or complaints. - Constitutional Vitals: Temp Pulse Resp BP Pulse Ox 97.9 F 101 16 156/91 99 08/27/16 10:50 08/27/16 10:50 08/27/16 11:13 08/27/16 10:50 08/27/16 11:13 General appearance: Present: A&O X 3, pleasant, no acute distress, answers questions appropriately - Head Head exam: Present: atraumatic - Neck Neck exam general surgery: Present: supple - Respiratory Respiratory exam: Present: CTAB. Absent: rhonchi, wheezes - Cardiovascular Cardiovascular exam: Present: RRR, +S1, +S2 - GI/Abdominal GI/Abdominal exam: Present: soft. Absent: guarding, tenderness - Extremities Exam Extremities exam: Present: radial pulses palpable and symetrical. Absent: cyanotic, pedal edema Additional comments: Status post left reverse total shoulder replacement. Dressing intact - Neurological Exam Neurological exam: Present: alert, oriented X3, no focal deficits - Skin Additional comments: extensive bruising over chest and arms Internal Medicine: Result - Labs CBC & Chem 7: 08/27/16 04:10 08/26/16 03:54 Labs: Short CBC 08/26/16 08/27/16 Range/Units 18:19 04:10 Hgb 8.4 L 7.6 L (12.9-16.9) g/dL Hct 24.4 L 22.0 L (37.5-50.1) % - ABG Interpretation ABG results: PT/INR, D-dimer PT 11.9 Seconds (9.4-12.1) 08/24/16 04:00 - Impressions Impressions Knee X-Ray 08/25/16 08:19 IMPRESSION: 1. Stable right knee arthroplasty 2. Stable posttraumatic changes involving the proximal tibia and proximal fibula diaphysis. 3. No significant change compared to 02/03/2016. D/ / 08/25/2016 17:46:36 [facility]usep[facility]ellez MD [facility] Inter[facility]ting Provider: Giuseppe Tellez MD Shoulder X-Ray 08/26/16 16:32 IMPRESSION: Baseline study, status post left shoulder arthroplasty for proximal humerus fracture. D/ / 08/26/2016 18:45:23 Giuseppe Tellez MD / [facility] Interpreting Provider: Giuseppe Tellez MD - [facility] Documentation of Mechanical Device: Venous foot pump, device Consult Discharge Plan - Plan Referrals: Nicolas Harper MD [Primary Care Provider] -
--- NOTE | 2016-08-27 11:38 | Orthopedics Progress Note ---
Date of Encounter: 08/27/16 Time of Encounter: 08:00 - Assessment and Plan (1) Left humeral fracture Current Visit: Yes Status: Acute Patient to continue in arm sling with NO shoulder motion. Physical therapy to perform left elbow, wrist, and hand ROM. Opsite bandage to stay in place until in-office follow up. Please call if saturated greater than 50% for replacement. Patient will have follow up in the office in 2 weeks. Qualifiers: Qualified Code(s): S42.295K - Other nondisplaced fracture of upper end of left humerus, subsequent encounter for fracture with nonunion Subjective Principal diagnosis: Left humerus fracture Interval history: Mr. Verduzco is post-operative day #1 from left total shoulder replacement reverse. He is doing well since exam yesterday. Upon examination, patient resting comfortably in bed with left arm sling in place. He is alert however is confused with respect to time. He repeatedly is asking about what he is going to do about getting some clothing, and he states he believes his is picking him up this morning and taking him home then she will go on to work. Even after reassurance that he will need to stay in the hospital, he continues to state these things. He is neurovascularly intact with respect to bilateral upper and lower extremities. Incision over left shoulder inspected - stable with Opsite bandage in place overlying. Ecchymosis to left shoulder and arm still present. Central line noted to right neck. ROM of all other joints of upper and lower extremities within normal limits. Calves nontender. Right knee abrasion healing well. Patient to continue in arm sling with NO shoulder motion. Physical therapy to perform left elbow, wrist, and hand ROM. Opsite bandage to stay in place until in-office follow up. Please call if saturated greater than 50% for replacement. Patient will have follow up in the office in 2 weeks. Objective Vital signs: Vital Signs Temp Pulse Resp BP Pulse Ox 08/27/16 11:13 16 99 08/27/16 10:50 97.9 F 101 16 156/91 99 08/27/16 09:00 16 98 08/27/16 07:49 16 98 08/27/16 06:33 98.9 F 111 16 171/89 98 08/27/16 04:14 16 98 08/27/16 03:41 98.9 F 112 18 160/94 97 08/27/16 00:15 99.2 F 105 16 151/79 98 08/26/16 23:33 16 98 08/26/16 23:18 99.2 F 105 16 151/79 99 08/26/16 22:34 98.9 F 105 16 149/84 97 08/26/16 20:30 98.1 F 89 18 152/86 99 08/26/16 20:03 98.2 F 96 18 129/78 100 08/26/16 18:47 98.7 F 102 16 148/90 99 08/26/16 18:33 98.8 F 102 18 158/97 100 08/26/16 18:23 106 18 154/86 98 08/26/16 18:13 108 18 136/86 100 08/26/16 18:03 99.1 F 100 18 126/79 100 08/26/16 14:00 98.7 F 94 14 159/85 98 Intake and Output 08/26/16 08/27/16 08/27/16 23:59 07:59 15:59 Intake Total 100 / 100 0 / 0 Output Total 200 / 200 400 / 400 Balance -200 / -200 -300 / -300 0 / 0 Intake: IV Fluids 100 / 100 Ancef 2,000 MG In 100 / 100 Dextrose 5% 100 ML @ 200 mls/hr IVPB Q8HR [facility] Rx#: [id number] Blood Product 0 / 0 Rbcs Leuko Poor As-1 0 / 0 Unit [id number] Output: Urine 400 / 400 Estimated Blood Loss 200 / 200 Other: Blood Glucose* 181 210 - Labs CBC & BMP: 08/27/16 04:10 08/26/16 03:54 Labs: Abnormal lab results RBC 2.80 M/mcL (4.19-5.50) L 08/26/16 03:54 Hgb 7.6 g/dL (12.9-16.9) L 08/27/16 04:10 Hct 22.0 % (37.5-50.1) L 08/27/16 04:10 Plt Count 100 K/mcL (140-400) L 08/26/16 03:54 Sodium 127 mEq/L (136-145) L 08/26/16 03:54 Potassium 3.1 mEq/L (3.5-4.5) L 08/26/16 03:54 Chloride 94 mEq/L (98-109) L 08/26/16 03:54 BUN 3 mg/dL (8-26) L 08/26/16 03:54 Creatinine 0.58 mg/dL (0.72-1.25) L 08/26/16 03:54 BUN/Creatinine Ratio 5 (6-26) L 08/26/16 03:54 POC Glucose 210 (58-89) H 08/27/16 10:53 Calculated Osmolality 260 (280-300) L 08/26/16 03:54 Uric Acid 3.0 mg/dL (3.5-7.2) L 08/24/16 08:39 Calcium 8.2 mg/dL (8.6-10.8) L 08/26/16 03:54 Magnesium 1.4 mg/dL (1.6-2.6) L 08/24/16 04:00 Ferritin 911 ng/ml (22-275) H 08/24/16 20:25 AST 145 Units/L (5-34) H 08/24/16 04:00 ALT 169 Units/L (0-55) H 08/24/16 04:00 Creatine Kinase 803 Units/L (30-200) H 08/23/16 19:10 Serum Total Protein 5.6 g/dL (6.0-8.3) L 08/24/16 04:00 Albumin 3.2 g/dL (3.5-5.0) L 08/24/16 04:00 [id number] 221 mg/dL (90-200) H 08/24/16 20:25 Ethyl Alcohol 274 mg/dL (0-10) H 08/23/16 19:10 Staphylococcus sp PCR DETECTED (Not Detect) A 08/23/16 21:53 - VTE Documentation of Mechanical Device: Venous foot pump, device Consult Discharge Plan - Plan Referrals: Nicolas Harper MD [Primary Care Provider] -
[2016-08-27 12:54] LABS: Alanine Aminotransferase 69 Units/L (0-55); Albumin 2.9 g/dL (3.5-5.0); Albumin/Globulin Ratio 1.1 (1.1-2.2); Alkaline Phosphatase 60 Units/L (38-126); Aspartate Amino Transferase 43 Units/L (5-34); BUN/Creatinine Ratio 6 (6-26); Bilirubin,Total 1.2 mg/dL (0.2-1.2); Calcium 8.4 mg/dL (8.6-10.8); Carbon Dioxide 24 mEq/L (19-29); Chloride 90 mEq/L (98-109); Globulin 2.7 g/dL (2.4-3.5); Glucose 147 mg/dL (70-99); Osmolality,Calculated 260 (280-300); Potassium 3.4 mEq/L (3.5-4.5); Sodium 125 mEq/L (136-145); Total Protein 5.6 g/dL (6.0-8.3); eGFR For African Americans > 60 (> 60); eGFR For Non-African Americans > 60 (> 60)
[2016-08-27 12:55] LABS: Blood Urea Nitrogen 4 mg/dL (8-26)
[2016-08-27] MEDS ORDERED: Aminoglycoside Consult 1 EACH MC ONE (14:22)
[2016-08-27 15:08] LABS: Myeloperoxidase Ab 2 AU/mL (0-19); Serine Protease-3 Antibody 0 AU/mL (0-19)
[2016-08-27 15:32] LABS: Hematocrit 24.9 % (37.5-50.1); Hemoglobin 8.4 g/dL (12.9-16.9)
[2016-08-27] MEDS: Vancomycin 1,250 MG in D5% in Water 250 ML IVPB SCH (17:04)
[2016-08-28] MEDS: *HR* OxyCODONE/APAP 10/325 TABLET PO PRN ×2 (01:47→05:53)
[2016-08-28 04:03] LABS: Basophils % 0.2 %; Eosinophils # 0.2 K/mcL (0.0-0.6); Eosinophils % 2.6 %; Hematocrit 28.6 % (37.5-50.1); Hemoglobin 9.8 g/dL (12.9-16.9); Immature Granulocytes % 0.5 % (0-4); Lymphocytes # 0.8 K/mcL (0.6-4.6); Lymphocytes % 14.3 %; Mean Corpuscular HGB Conc 34.3 g/dL (31.6-35.5); Mean Corpuscular Hemoglobin 28.8 pg (28.0-33.3); Mean Corpuscular Volume 84.1 fL (83.0-100.0); Mean Platelet Volume 9.1 fL (9.4-12.4); Monocytes # 0.9 K/mcL (0.0-1.3); Platelet Count 125 K/mcL (140-400); Red Cell Distribution Width 13.9 % (11.5-14.5); Segmented Neutrophils % 67.4 %
[2016-08-28 04:14] LABS: BUN/Creatinine Ratio 6 (6-26); Calcium 8.7 mg/dL (8.6-10.8); Carbon Dioxide 27 mEq/L (19-29); Chloride 91 mEq/L (98-109); Glucose 123 mg/dL (70-99); Osmolality,Calculated 262 (280-300); Potassium 3.6 mEq/L (3.5-4.5); Sodium 127 mEq/L (136-145); eGFR For African Americans > 60 (> 60); eGFR For Non-African Americans > 60 (> 60)
[2016-08-28 04:15] LABS: Blood Urea Nitrogen 4 mg/dL (8-26)
[2016-08-28] MEDS: Vancomycin 1,250 MG in D5% in Water 250 ML IVPB SCH (04:48)
--- NOTE | 2016-08-28 08:19 | Nephrology Progress Note ---
Date of Encounter: 08/28/16 Time of Encounter: 08:18 - Assessment and Plan (1) Hyponatremia Current Visit: Yes Status: Acute Patient has euvolemic hyponatremia likely related to alcohol abuse and low solute intake. The patient will be started on sodium chloride tablets. (2) Left humeral fracture Current Visit: Yes Status: Acute Qualifiers: Encounter type: subsequent encounter Humerus Location: proximal Fracture type: closed Fracture morphology: other fracture Fracture alignment: nondisplaced Fracture healing: with nonunion Qualified Code(s): S42.295K - Other nondisplaced fracture of upper end of left humerus, subsequent encounter for fracture with nonunion (3) Alcohol intoxication Current Visit: Yes Status: Acute Qualifiers: Complication of substance-induced condition: with unspecified complication Qualified Code(s): F10.129 - Alcohol abuse with intoxication, unspecified Subjective Principal diagnosis: Left humerus fracture Interval history: The patient denies any complaints. He is status post shoulder surgery 2 days ago. Serum sodium is stable at 127. It appears as though he is no longer on any IV normal saline. Objective - Vital Signs Vital signs: Vital Signs Temp Pulse Resp BP Pulse Ox 08/28/16 06:46 99.3 F 92 16 134/72 97 08/28/16 03:10 98.4 F 100 18 148/83 97 08/27/16 23:41 98 08/27/16 23:36 98.9 F 99 14 138/70 98 08/27/16 23:05 14 97 08/27/16 20:21 16 98 08/27/16 19:14 99.1 F 92 17 156/82 99 08/27/16 18:34 99.8 F H 92 16 156/82 99 08/27/16 16:23 97.6 F 93 18 151/86 99 08/27/16 16:18 17 98 08/27/16 16:08 98.0 F 95 17 158/83 98 08/27/16 15:32 98.7 F 91 16 155/86 99 08/27/16 15:00 98.0 F 95 17 158/83 98 08/27/16 11:37 97.7 F 93 17 155/88 98 08/27/16 11:22 97.5 F L 102 19 153/84 97 08/27/16 11:13 16 99 08/27/16 10:50 97.9 F 101 16 156/91 99 08/27/16 09:00 16 98 Intake and Output 08/27/16 08/28/16 08/28/16 23:59 07:59 15:59 Intake Total 1100 / 1100 250 / 250 Output Total 250 / 250 Balance 1100 / 1100 0 / 0 Intake: IV Fluids 750 / 750 250 / 250 0.9 % Sodium Chloride 250 500 / 500 ML @ 25 mls/hr IVC .Q10H [facility] Rx#:[id number] Vancocin 1,250 MG In 250 / 250 250 / 250 Dextrose 5% 250 ML @ 166. 67 mls/hr IVPB Q12H ESTEF[facility] Rx#:[id number] Blood Product 350 / 350 Rbcs Leuko Poor As-1 350 / 350 Unit [id number] Output: Urine 250 / 250 Other: Weight 67.5 kg Blood Glucose* 185 Patient Weight 08/28/16 23:59 Weight 67.5 kg - General Appearance Exam: Patient is alert and oriented. He is in no acute distress. Vital signs are stable. Lungs clear to auscultation. Heart regular rate and rhythm. There is ecchymosis around the chest. Abdomen is benign. There is no lower extremity swelling. - Lab 08/28/16 03:10 08/28/16 03:10 Most recent lab results Calcium 8.7 mg/dL (8.6-10.8) 08/28/16 03:10 Phosphorus 2.5 mg/dL (2.3-4.7) 08/24/16 04:00 Magnesium 1.4 mg/dL (1.6-2.6) L 08/24/16 04:00 - VTE Documentation of Mechanical Device: Venous foot pump, device Consult Discharge Plan - Plan Referrals: Nicolas Harper MD [Primary Care Provider] -
[2016-08-28] MEDS: Tiotropium 18 MCG inhalation IH SCH (08:25)
[2016-08-28] MEDS: Folic Acid 1 MG TABLET PO SCH (08:34)
[2016-08-28] MEDS: Aspirin 325 MG TABLET PO SCH ×2 (08:35→19:55)
[2016-08-28] MEDS: Thiamine (B-1) 100 MG TABLET PO SCH (08:35)
[2016-08-28] MEDS: Nicotine 21 MG PATCH.TD24 TD SCH (08:36)
--- NOTE | 2016-08-28 13:46 | Internal Med Progress Note ---
Date of Encounter: 08/28/16 Time of Encounter: 08:50 - Assessment and plan (1) Left humeral fracture Current Visit: Yes Status: Acute Assessment and plan: sling in place, oxycodone PRN pain doing well Postop day #2 status post left reverse total shoulder replacement and biceps tenodesis Orthopedics following Qualifiers: Encounter type: subsequent encounter Humerus Location: proximal Fracture type: closed Fracture morphology: other fracture Fracture alignment: nondisplaced Fracture healing: with nonunion Qualified Code(s): S42.295K - Other nondisplaced fracture of upper end of left humerus, subsequent encounter for fracture with nonunion (2) Blood culture positive for microorganism Current Visit: Yes Status: Acute Assessment and plan: one set of blood cultures positive staph capitis - Unasyn started Hemodynamically stable, no fever (3) Hyponatremia Current Visit: Yes Status: Acute Assessment and plan: Slowly Improving - now 127 probably related to alcohol abuse, continue current meds nephrology following, monitor sodium level closely (4) Rhabdomyolysis Current Visit: Yes Status: Acute Assessment and plan: improving, continue IV fluids, nephro following Qualifiers: Rhabdomyolysis type: traumatic Encounter type: initial encounter Qualified Code(s): T79.6XXA - Traumatic ischemia of muscle, initial encounter (5) Alcohol intoxication Current Visit: Yes Status: Acute Assessment and plan: Counseled extensively about cessation alcohol abuse, withdrawal protocol Qualifiers: Complication of substance-induced condition: with unspecified complication Qualified Code(s): F10.129 - Alcohol abuse with intoxication, unspecified (6) Upper GI bleed Current Visit: Yes Status: Acute Assessment and plan: resolved likely related to alcohol abuse - esophagitis/gastritis - Pantoprazole EGD done - esophagitis, multiple non-bleeding ulcers seen (7) Tobacco abuse Current Visit: Yes Status: Chronic Assessment and plan: NRT, counselled about cessation - Time Spent With Patient less than 15 minutes - Subjective Interval history: Patient awake and alert. Not in any distress. Denies chest pain or shortness of breath. No fever. Complains of mild left arm pain at surgical site, which has improved. Rates it 3/10. Physical therapy performing left elbow wrist and hand range of motion. Postop day #2. Status post left reverse total shoulder replacement and biceps tenodesis. Blood cultures positive for staph capitis. Pansensitive. Unasyn started today. Hyponatremia slowly improving. No other acute events or complaints. - Constitutional Vitals: Temp Pulse Resp BP Pulse Ox 98.5 F 83 16 146/85 99 08/28/16 10:54 08/28/16 10:54 08/28/16 10:54 08/28/16 10:54 08/28/16 10:54 General appearance: Present: A&O X 3, pleasant, no acute distress, answers questions appropriately - Head Head exam: Present: atraumatic - Neck Neck exam general surgery: Present: supple - Respiratory Respiratory exam: Present: CTAB. Absent: rhonchi, wheezes - Cardiovascular Cardiovascular exam: Present: RRR, +S1, +S2 - GI/Abdominal GI/Abdominal exam: Present: soft. Absent: guarding, tenderness - Extremities Exam Extremities exam: Present: radial pulses palpable and symetrical. Absent: cyanotic, pedal edema Additional comments: Status post left reverse total shoulder replacement, dressing intact. Left arm in sling. Physical therapy to perform range of motion - Neurological Exam Neurological exam: Present: alert, oriented X3, no focal deficits Internal Medicine: Result - Labs CBC & Chem 7: 08/28/16 03:10 08/28/16 03:10 Labs: Short CBC 08/27/16 08/28/16 Range/Units 15:00 03:10 WBC 5.9 (4.3-11.1) K/mcL Hgb 8.4 L 9.8 L (12.9-16.9) g/dL Hct 24.9 L 28.6 L (37.5-50.1) % Plt Count 125 L (140-400) K/mcL Neutrophils # 4.0 (1.6-8.9) K/mcL BMP 08/28/16 03:10 Sodium 127 L Potassium 3.6 Chloride 91 L Carbon Dioxide 27 BUN 4 L Creatinine 0.65 L Glucose 123 H Calcium 8.7 - ABG Interpretation ABG results: PT/INR, D-dimer PT 11.9 Seconds (9.4-12.1) 08/24/16 04:00 - Impressions Impressions Shoulder X-Ray 08/26/16 16:32 IMPRESSION: Baseline study, status post left shoulder arthroplasty for proximal humerus fracture. D/ / 08/26/2016 18:45:23 Giuseppe Tellez MD / Consuelo Wall Interpreting Provider: Giuseppe Tellez MD Chest X-Ray 08/27/16 07:20 IMPRESSION: No acute cardiopulmonary process. Postsurgical changes from recent reverse left total shoulder arthroplasty. D/ / 08/27/2016 16:44:43 Prosper Felton MD / priyanka Interpreting Provider: Prosper Felton MD - VTE Documentation of Mechanical Device: Venous foot pump, device Consult Discharge Plan - Plan Referrals: Nicolas Harper MD [Primary Care Provider] -
[2016-08-28] MEDS: Ampicillin/Sulbactam 3,000 MG in 0.9 % Sodium Chloride Mini Bag 100 ML IVPB SCH ×2 (14:08→19:55)
[2016-08-28] MEDS: *HR* LORazepam 2 MG/ML VIAL IVP PRN (18:21)
[2016-08-29] MEDS: Ampicillin/Sulbactam 3,000 MG in 0.9 % Sodium Chloride Mini Bag 100 ML IVPB SCH ×4 (01:49→20:07)
[2016-08-29 03:09] LABS: Basophils % 0.2 %; Eosinophils # 0.1 K/mcL (0.0-0.6); Eosinophils % 2.4 %; Hematocrit 26.4 % (37.5-50.1); Immature Granulocytes % 0.8 % (0-4); Lymphocytes # 0.9 K/mcL (0.6-4.6); Lymphocytes % 18.6 %; Mean Corpuscular HGB Conc 34.1 g/dL (31.6-35.5); Mean Corpuscular Hemoglobin 28.8 pg (28.0-33.3); Mean Corpuscular Volume 84.6 fL (83.0-100.0); Mean Platelet Volume 9.4 fL (9.4-12.4); Monocytes # 0.9 K/mcL (0.0-1.3); Monocytes % 17.6 %; Platelet Count 156 K/mcL (140-400); Red Blood Count 3.12 M/mcL (4.19-5.50); Segmented Neutrophils % 60.4 %
[2016-08-29 03:22] LABS: BUN/Creatinine Ratio 8 (6-26); Blood Urea Nitrogen 5 mg/dL (8-26); Calcium 8.4 mg/dL (8.6-10.8); Carbon Dioxide 25 mEq/L (19-29); Chloride 93 mEq/L (98-109); Glucose 112 mg/dL (70-99); Osmolality,Calculated 262 (280-300); Potassium 3.6 mEq/L (3.5-4.5); Sodium 127 mEq/L (136-145); eGFR For African Americans > 60 (> 60); eGFR For Non-African Americans > 60 (> 60)
[2016-08-29] MEDS: Tiotropium 18 MCG inhalation IH SCH (07:42)
[2016-08-29] MEDS: Folic Acid 1 MG TABLET PO SCH (07:48)
[2016-08-29] MEDS: Thiamine (B-1) 100 MG TABLET PO SCH (07:48)
[2016-08-29] MEDS: Aspirin 325 MG TABLET PO SCH ×2 (07:48→20:05)
[2016-08-29] MEDS: Nicotine 21 MG PATCH.TD24 TD SCH (07:49)
[2016-08-29] MEDS: *HR* LORazepam 2 MG/ML VIAL IVP PRN ×3 (10:17→19:07)
--- NOTE | 2016-08-29 11:41 | Internal Med Progress Note ---
Date of Encounter: 08/29/16 Time of Encounter: 08:35 - Assessment and plan (1) Left humeral fracture Current Visit: Yes Status: Acute Assessment and plan: sling in place, oxycodone PRN pain doing well Postop day #3 status post left reverse total shoulder replacement and biceps tenodesis Orthopedics following Qualifiers: Encounter type: subsequent encounter Humerus Location: proximal Fracture type: closed Fracture morphology: other fracture Fracture alignment: nondisplaced Fracture healing: with nonunion Qualified Code(s): S42.295K - Other nondisplaced fracture of upper end of left humerus, subsequent encounter for fracture with nonunion (2) Blood culture positive for microorganism Current Visit: Yes Status: Acute Assessment and plan: one set of blood cultures positive staph capitis - Unasyn started, d/c home with Augmentin Hemodynamically stable, no fever (3) Hyponatremia Current Visit: Yes Status: Acute Assessment and plan: Slowly Improving - now 127 probably related to alcohol abuseand low solute intake nephrology following, monitor sodium level closely (4) Rhabdomyolysis Current Visit: Yes Status: Acute Assessment and plan: improving, continue IV fluids, nephro following Qualifiers: Rhabdomyolysis type: traumatic Encounter type: initial encounter Qualified Code(s): T79.6XXA - Traumatic ischemia of muscle, initial encounter (5) Alcohol intoxication Current Visit: Yes Status: Acute Assessment and plan: Alcohol abuse Counseled extensively about alcohol cessation withdrawal protocol Qualifiers: Complication of substance-induced condition: with unspecified complication Qualified Code(s): F10.129 - Alcohol abuse with intoxication, unspecified (6) Upper GI bleed Current Visit: Yes Status: Acute Assessment and plan: resolved likely related to alcohol abuse - esophagitis/gastritis - Pantoprazole EGD done - esophagitis, multiple non-bleeding ulcers seen (7) Tobacco abuse Current Visit: Yes Status: Chronic Assessment and plan: NRT, counselled about cessation - Time Spent With Patient less than 15 minutes - Subjective Interval history: Patient awake and alert. Not in any distress. Denies chest pain or shortness of breath. No fever. Complains of mild left arm pain at surgical site, which has improved. Rates it 3/10. Physical therapy performing left elbow wrist and hand range of motion. Postop day #3. Status post left reverse total shoulder replacement and biceps tenodesis. Blood cultures positive for staph capitis. Pansensitive. Unasyn started. Hyponatremia slowly improving. No other acute events or complaints. - Constitutional Vitals: Temp Pulse Resp BP Pulse Ox 98.7 F 87 14 134/77 98 08/29/16 11:13 08/29/16 11:13 08/29/16 11:13 08/29/16 11:13 08/29/16 11:13 General appearance: Present: A&O X 3, pleasant, no acute distress, answers questions appropriately - Head Head exam: Present: atraumatic - Neck Neck exam general surgery: Present: supple - Respiratory Respiratory exam: Present: CTAB. Absent: rhonchi, wheezes - Cardiovascular Cardiovascular exam: Present: RRR, +S1, +S2 - GI/Abdominal GI/Abdominal exam: Present: soft. Absent: guarding, tenderness - Extremities Exam Extremities exam: Present: radial pulses palpable and symetrical. Absent: cyanotic, pedal edema Additional comments: Status post left reverse total shoulder replacement, dressing intact. Left arm in sling. Physical therapy to perform range of motion - Neurological Exam Neurological exam: Present: alert, oriented X3, no focal deficits Internal Medicine: Result - Labs CBC & Chem 7: 08/29/16 02:21 08/29/16 02:21 Labs: Short CBC 08/29/16 Range/Units 02:21 WBC 5.0 (4.3-11.1) K/mcL Hgb 9.0 L (12.9-16.9) g/dL Hct 26.4 L (37.5-50.1) % Plt Count 156 (140-400) K/mcL Neutrophils # 3.0 (1.6-8.9) K/mcL BMP 08/29/16 02:21 Sodium 127 L Potassium 3.6 Chloride 93 L Carbon Dioxide 25 BUN 5 L Creatinine 0.59 L Glucose 112 H Calcium 8.4 L - ABG Interpretation ABG results: PT/INR, D-dimer PT 11.9 Seconds (9.4-12.1) 08/24/16 04:00 - VTE Documentation of Mechanical Device: Intermittent pneumatic compression device Consult Discharge Plan - Plan Referrals: Nicolas Harper MD [Primary Care Provider] -
[2016-08-30] MEDS: Ampicillin/Sulbactam 3,000 MG in 0.9 % Sodium Chloride Mini Bag 100 ML IVPB SCH ×2 (02:10→08:00)
[2016-08-30 04:58] LABS: Basophils % 0.3 %; Eosinophils # 0.1 K/mcL (0.0-0.6); Eosinophils % 2.5 %; Hematocrit 26.6 % (37.5-50.1); Lymphocytes # 1.1 K/mcL (0.6-4.6); Lymphocytes % 26.8 %; Mean Corpuscular HGB Conc 33.8 g/dL (31.6-35.5); Mean Corpuscular Hemoglobin 29.1 pg (28.0-33.3); Mean Corpuscular Volume 86.1 fL (83.0-100.0); Mean Platelet Volume 8.5 fL (9.4-12.4); Monocytes # 0.8 K/mcL (0.0-1.3); Platelet Count 211 K/mcL (140-400); Red Blood Count 3.09 M/mcL (4.19-5.50); Red Cell Distribution Width 13.8 % (11.5-14.5); Segmented Neutrophils % 50.4 %
[2016-08-30 05:11] LABS: BUN/Creatinine Ratio 10 (6-26); Blood Urea Nitrogen 6 mg/dL (8-26); Calcium 8.6 mg/dL (8.6-10.8); Carbon Dioxide 25 mEq/L (19-29); Chloride 96 mEq/L (98-109); Glucose 116 mg/dL (70-99); Osmolality,Calculated 265 (280-300); Sodium 128 mEq/L (136-145); eGFR For African Americans > 60 (> 60); eGFR For Non-African Americans > 60 (> 60)
[2016-08-30 05:24] LABS: Platelet Estimate Normal (Normal)
[2016-08-30] MEDS: Tiotropium 18 MCG inhalation IH SCH (07:41)
[2016-08-30] MEDS: Nicotine 21 MG PATCH.TD24 TD SCH (08:02)
[2016-08-30] MEDS: Thiamine (B-1) 100 MG TABLET PO SCH (08:03)
[2016-08-30] MEDS: Folic Acid 1 MG TABLET PO SCH (08:03)
[2016-08-30] MEDS: Aspirin 325 MG TABLET PO SCH (08:03)
[2016-08-30] MEDS ORDERED: Water for inj. (sterile) 10 ML IV ONE ×2 (08:18→11:02)
--- NOTE | 2016-08-30 08:43 | Event Note ---
Date of Encounter: 08/30/16 Time of Encounter: 08:43 The patient's sodium is stable at 128. Nephrology will sign off. Please call again if needed.
[2016-08-30 11:16] VITALS: BP 168/88
--- NOTE | 2016-08-30 11:31 | Discharge Summary ---
Date of Encounter: 08/30/16 Time of Encounter: 08:30 - Discharge Diagnosis (1) Left humeral fracture Priority: Primary Status: Acute Comments: Improved - needs home health and PT sling in place doing well postoperatively Postop day #4 - s/p left reverse total shoulder replacement and biceps tenodesis Orthopedics following Qualifiers: Encounter type: subsequent encounter Humerus Location: proximal Fracture type: closed Fracture morphology: other fracture Fracture alignment: nondisplaced Fracture healing: with nonunion Qualified Code(s): S42.295K - Other nondisplaced fracture of upper end of left humerus, subsequent encounter for fracture with nonunion (2) Blood culture positive for microorganism Priority: Primary Status: Acute Comments: one set of blood cultures positive staph capitis - Unasyn started, d/c home with Augmentin Hemodynamically stable, no fever (3) Hyponatremia Priority: Primary Status: Acute Comments: Improved - now 128 probably related to alcohol abuse and low solute intake nephrology signed off (4) Rhabdomyolysis Priority: Primary Status: Resolved Comments: Resolved Qualifiers: Rhabdomyolysis type: traumatic Encounter type: initial encounter Qualified Code(s): T79.6XXA - Traumatic ischemia of muscle, initial encounter (5) Alcohol intoxication Priority: Primary Status: Acute Comments: Alcohol abuse - patient understands that he needs to abstain Counseled extensively about alcohol cessation Qualifiers: Complication of substance-induced condition: with unspecified complication Qualified Code(s): F10.129 - Alcohol abuse with intoxication, unspecified (6) Upper GI bleed Priority: Primary Status: Acute Comments: resolved likely related to alcohol abuse - esophagitis/gastritis - Pantoprazole EGD done - esophagitis, multiple non-bleeding ulcers seen (7) Tobacco abuse Priority: Secondary Status: Chronic Comments: NRT, counselled about cessation - Discharge Medications Prescriptions: Acetaminophen w/Cod 300-30 mg [Tylenol w/Codeine #3] 1 each PO Q6HR #14 tablet Amoxicillin/Clavulanate [Augmentin] 875 mg PO BIDWM 10 Days Aspirin 81 mg PO DAILY #30 tab.chew Folic Acid 1 mg PO DAILY #30 tablet LORazepam [Ativan] 1 mg PO HS #10 tablet Nicotine Patch [Nicoderm] 21 mg TD DAILY #30 patch.td24 Pantoprazole Sodium 40 mg PO DAILY 30 Days Thiamine (B-1) [Vitamin B-1] 100 mg PO DAILY #30 tablet Home Medications: Lisinopril [Zestril] 10 mg PO DAILY 01/27/15 [History] Albuterol Sulfate [Ventolin Hfa] 2 puff IH Q4H PRN 08/23/16 [History] Tiotropium [place] [Spiriva Respimat] 2 puff IH DAILY 08/23/16 [History] Acetaminophen w/Cod 300-30 mg [Tylenol w/Codeine #3] 1 each PO Q6HR #14 tablet 08/30/16 [Rx] Amoxicillin/Clavulanate [Augmentin] 875 mg PO BIDWM 10 Days 08/30/16 [Rx] Aspirin 81 mg PO DAILY #30 tab.chew 08/30/16 [Rx] Folic Acid 1 mg PO DAILY #30 tablet 08/30/16 [Rx] LORazepam [Ativan] 1 mg PO HS #10 tablet 08/30/16 [Rx] Nicotine Patch [Nicoderm] 21 mg TD DAILY #30 patch.td24 08/30/16 [Rx] Pantoprazole Sodium 40 mg PO DAILY 30 Days 08/30/16 [Rx] Thiamine (B-1) [Vitamin B-1] 100 mg PO DAILY #30 tablet 08/30/16 [Rx] Allergies/Adverse Reactions: Allergies Androgenic Anabolic Steroid Adverse Reaction (Verified 07/08/15 11:01) Nausea Date of admission: 08/23/16 21:12 Primary care physician: Nicolas Harper MD Consults: 08/23/16 22:10 Consult to Amusement Equipment Operator [CONS] Routine Reason for SW Consult: Alcohol abuse 08/24/16 03:17 Consult to Gastroenterology [CONS] Routine Consulting Provider: [facility] Reason for Consult: Possible upper GI bleed and acute blood loss anemia Call Completed: No 08/25/16 15:25 Consult to Occupational Therapy [CONS] Routine Comment: Evaluate, develop and implement POC Reason for Consult: discharge planning Consult to Physical Therapy [CONS] Routine Comment: Evaluate, develop and implement POC Reason for Consult: discharge planning 08/26/16 18:36 Consult to Occupational Therapy [CONS] Routine Comment: post shoulder surgery Reason for Consult: No shoulder motion. Consult to Physical Therapy [CONS] Routine Comment: post shoulder surgery Reason for Consult: No shoulder motion. RT Post Op Consult [CONS] Routine Anticipated date of discharge: 08/30/16 - Patient Status Disposition: Home Health Service Condition: Good Functional capacity at discharge: independent ambulation Overall status at discharge: patient is progressing back to baseline - Discharge Instructions Follow Up With: Linda Rooney PAC [Physician Sales Product Specialist] - 09/09/16 9:30 am Nicolas Harper MD [Primary Care Provider] - Additional Instructions: [facility], , [address] [place] [address]: APPOINTMENT 09/02/16 @ 9:00AM. PLEASE ATTEND ALL APPOINTMENTS SCHEDULED. PLEASE TAKE ALL MEDICATIONS PRESCRIBED. Discharge Instructions: Total Shoulder Please call [facility] ([phone]), your Primary Care Physician, or report to the Emergency Room if you have any of the following symptoms: Nausea, vomiting, fever greater that 101.5, swelling, chest pain, shortness of breath, increased pain/redness/drainage/odor for your incision site, numbness/ tingling, or any other concerning symptoms. ACTIVITY: Always keep your arm in the sling. Do not raise your arm away from your body. Do not use your arm to help with getting in or out of bed. No weight bearing permitted. Only perform those exercises given to you by your therapist. MEDICATIONS: Upon discharge resume your home medications. Take all the medications as prescribed. Take a stool softener if taking narcotic pain medications. Stool softeners are only effective if you drink enough fluids. Drink 6-8 glass of water or fluids a day, unless this is not allowed for another health problem. Despite using stool softeners, if you haven't had a bowel movement in 3 days, please switch to a gentle laxative. Gentle laxatives are sold over the counter. You should have a bowel movement within 24 hours, if not call the office. You will be discharged from the hospital with a prescription for pain medication. You are encouraged to decrease the use of narcotic pain medication as tolerated. Should you require a refill, please call the office. [facility] prescribes narcotic pain medication for only 4-6 weeks after surgery. If you require pain medication beyond this time period, you may be referred to your Primary Care Physician or to the Pain Clinic for further evaluation. Plan ahead for refills on pain medication as many narcotics either need to be picked up at the office or mailed. It is best to call 48-72 hours in advance of needing a prescription refill so you don't run out of medication. To help control the post-operative pain, you may take NSAIDs (Aleve,Advil, Motrin, Ibuprofen, Naprosyn) or Tylenol as prescribed on the bottle in addition to the pain medication. WOUND CARE: Leave the dressing on for 7-10 days. You may change the dressing if it becomes saturated greater than 50%. Do not get the dressing wet at anytime. Wash your hands with antibacterial soap, rinse and dry prior to any wound care. If you have rafy the visiting nurse or rehab facility can remove the stapes 10-14 days after surgery and place steri-strips across the wound. Leave the steri-strips in place until they fall off on their own. You may let water from the shower run on top of the steri-strips. If you do not have a visiting nurse or rehab facility, you will need to return to the office at 10-14 days for the rafy to be removed. If you have itching or redness around the dressing call the office. FOLLOW-UP: Please follow up with your surgeon in the orthopedic clinic, as scheduled - Diet and Activity Activity: as per physical therapy, increase activity as tolerated Diet: advance to your usual diet, low fat, low cholesterol Hospital course: Mr. Verduzco is a 56 year old male with past medical history of COPD, hypertension , anxiety, depression and history of alcohol abuse. Patient presented to the ED with a complaint of fall. Patient complained of bruising and pain over her left shoulder. Patient apparently was on a drinking binge and drank about 40 beers about 24 hours. His stated that. Been depressed and that he had been drinking heavily for the week prior to admission. The patient also had some vomiting which was black colored fluid and with also some blood. He denied melena or hematochezia. No other complaints initially. Initial evaluation revealed a comminuted impacted left humeral neck fracture. His left arm was placed in a sling. His initial labs showed severe hyponatremia, transaminitis and rhabdomyolysis with elevated CK levels. Nephrology was consulted and patient was started on IV 3% saline initially. Nephrology has evaluated the patient and following up with the patient daily during his stay in the hospital. Patient's sodium level is now 128 at the time of discharge. This is all likely due to low solute intake and also due to alcohol abuse. Patient's upper GI bleed was likely due to gastritis and esophagitis. he was started on pantoprazole. Nephrology was consult and EGD was done. Patient required a total of 4 units transfusion of packed red cells. EGD revealed esophagitis, multiple nonbleeding ulcers. Patient will be continued on pantoprazole. Patient has been counseled extensively about abstinence from alcohol. He is in agreement. Patient is also been counseled about smoking cessation. He has been on a nicotine patch and will be discharged with nicotine patch prescription. Patient's rhabdomyolysis is also now improved. His blood cultures are positive for staph capitis. This is pansensitive. He was initially on Unasyn in the hospital and is being discharged with Augmentin. Patient does not have leukocytosis no tachycardia and has not had a fever. Patient has progressed well. He has done well postoperatively. He underwent left reverse total shoulder replacement and biceps tenodesis. Right now he is postop day #4. Orthopedics has cleared him for discharge. Patient will go home with home health and physical therapy at home. Patient did not want to go to shelter. Patient is now tolerating oral diet well and ambulating well. He has been explained about his condition and plan of care in detail. He understood and agreed. Patient states he feels better and wants to go home today. No other acute events or complications. - Time Spent with Patient Total time spent providing and/or coordinating discharge services: Greater than 30 minutes - Constitutional Vitals: Temp Pulse Resp BP Pulse Ox 98.3 F 89 18 168/88 97 08/30/16 11:15 08/30/16 11:15 08/30/16 11:15 08/30/16 11:15 08/30/16 11:15 General appearance: Present: A&O X 3, pleasant, no acute distress, answers questions appropriately - Head Head exam: Present: atraumatic - Neck Neck exam general surgery: Present: supple - Respiratory Respiratory exam: Present: CTAB. Absent: rhonchi, wheezes - Cardiovascular Cardiovascular exam: Present: RRR, +S1, +S2 - GI/Abdominal GI/Abdominal exam: Present: soft. Absent: guarding, tenderness - Extremities Exam Extremities exam: Present: radial pulses palpable and symetrical. Absent: cyanotic, pedal edema Additional comments: Status post left reverse total shoulder replacement, dressing intact. Left arm in sling. Physical therapy to perform range of motion - Neurological Exam Neurological exam: Present: alert, oriented X3, no focal deficits - VTE Documentation of Mechanical Device: Venous foot pump, device
--- NOTE | 2016-08-30 16:48 | Physician Discharge Referral ---
Home Health/Hosp Referral Info Transfer to: Home Health Provider in Charge Post Discharge: PCP - Diagnosis (1) Left humeral fracture Status: Acute (2) Blood culture positive for microorganism Status: Acute (3) Hyponatremia Status: Acute (4) Rhabdomyolysis Status: Resolved (5) Alcohol intoxication Status: Acute (6) Upper GI bleed Status: Acute (7) Tobacco abuse Status: Chronic - Respiratory Orders Smoking Cessation: Smoking cessation has been advised. For more information, call the [place] Tobacco Quit Line at 2-383-ATTA-NOW. - Diet/Nutrition Diet/Nutrition Orders: Cardiac - Activity Activity Orders: Up ad esteban - Services Needed Following services are medically necessary services: Physical Therapy, Occupational Therapy - Transfer Medications Prescriptions: Acetaminophen w/Cod 300-30 mg [Tylenol w/Codeine #3] 1 each PO Q6HR #14 tablet Amoxicillin/Clavulanate [Augmentin] 875 mg PO BIDWM 10 Days Aspirin 81 mg PO DAILY #30 tab.chew Folic Acid 1 mg PO DAILY #30 tablet LORazepam [Ativan] 1 mg PO HS #10 tablet Nicotine Patch [Nicoderm] 21 mg TD DAILY #30 patch.td24 Pantoprazole Sodium 40 mg PO DAILY 30 Days Thiamine (B-1) [Vitamin B-1] 100 mg PO DAILY #30 tablet Home Medications: Lisinopril [Zestril] 10 mg PO DAILY 01/27/15 [History] Albuterol Sulfate [Ventolin Hfa] 2 puff IH Q4H PRN 08/23/16 [History] Tiotropium [place] [Spiriva Respimat] 2 puff IH DAILY 08/23/16 [History] Acetaminophen w/Cod 300-30 mg [Tylenol w/Codeine #3] 1 each PO Q6HR #14 tablet 08/30/16 [Rx] Amoxicillin/Clavulanate [Augmentin] 875 mg PO BIDWM 10 Days 08/30/16 [Rx] Aspirin 81 mg PO DAILY #30 tab.chew 08/30/16 [Rx] Folic Acid 1 mg PO DAILY #30 tablet 08/30/16 [Rx] LORazepam [Ativan] 1 mg PO HS #10 tablet 08/30/16 [Rx] Nicotine Patch [Nicoderm] 21 mg TD DAILY #30 patch.td24 08/30/16 [Rx] Pantoprazole Sodium 40 mg PO DAILY 30 Days 08/30/16 [Rx] Thiamine (B-1) [Vitamin B-1] 100 mg PO DAILY #30 tablet 08/30/16 [Rx] Allergies/Adverse Reactions: Allergies Androgenic Anabolic Steroid Adverse Reaction (Verified 07/08/15 11:01) Nausea Certification: Further, I certify that my clinical findings support that this patient is homebound (i.e. absences from home require considerable and taxing effort and are for medical reasons or oriental orthodox services or infrequently or short duration when for other reasons) because: Homebound Reason: Post-surgery restriction and or conditions limit ability to leave home Attestation: My signature below is to certify that this patient is under my care and that I, or nurse practitioner, or a physician's certified surgical tech/first assistant working with me, has a face-to -face encounter with this patient.
== END 2016-08-30 14:23 | disposition home health service (06) | DRG 483 ==
LOC: EMEROO 18:12 → ICNU 21:12 → 3ANU 08-25 14:31 → 3NENU 08-26 15:26
PROVIDERS: ADMIT Internal Medicine; ATTEND Hospitalist
PROC: ENDOEBX (2016-08-25 13:00)

== ENCOUNTER 2021-07-31 08:05 | Inpatient (IN) ==
[2021-07-31] MEDS ORDERED: Morphine Sulfate 2 MG/ML SYRINGE IVP ONE (08:17)
[2021-07-31] MEDS ORDERED: Ondansetron 4 MG/2 ML VIAL IVP ONE (08:17)
[2021-07-31 08:45] LABS: Prothrombin Time 10.7 Seconds (9.4-12.1)
[2021-07-31 08:51] LABS: Basophils % 0.2 %; Hematocrit 36.6 % (37.5-50.1); Hemoglobin 13.5 g/dL (12.9-16.9); Immature Platelets 7.3 % (1.1-6.1); Lymphocytes # 0.3 K/mcL (0.6-4.6); Lymphocytes % 5.5 %; Mean Corpuscular HGB Conc 36.9 g/dL (31.6-35.5); Mean Corpuscular Hemoglobin 31.8 pg (28.0-33.3); Mean Corpuscular Volume 86.1 fL (83.0-100.0); Mean Platelet Volume 9.7 fL (9.4-12.4); Monocytes # 0.7 K/mcL (0.0-1.3); Monocytes % 11.5 %; Platelet Count 123 K/mcL (140-400); Red Blood Count 4.25 M/mcL (4.19-5.50); Red Cell Distribution Width 13.1 % (11.5-14.5); Segmented Neutrophils % 81.8 %; White Blood Count 6.2 K/mcL (4.3-11.1)
[2021-07-31] MEDS ORDERED: 0.9 % Sodium Chloride 1,000 ML IV ONE (08:55)
[2021-07-31] MEDS ORDERED: Naloxone 0.4 MG/ML INJ IVP PRN (09:28)
[2021-07-31 10:35] LABS: Alanine Aminotransferase 45 Units/L (7-52); Albumin 4.3 g/dL (3.5-5.7); Albumin/Globulin Ratio 1.4 (1.1-2.2); Alkaline Phosphatase 89 Units/L (34-104); Aspartate Amino Transferase 64 Units/L (13-39); BUN/Creatinine Ratio 11 (6-26); Blood Urea Nitrogen 7 mg/dL (8-23); Calcium 9.1 mg/dL (8.6-10.3); Carbon Dioxide 26 mEq/L (23-29); Chloride 79 mEq/L (98-107); Glucose 124 mg/dL (70-105); Osmolality,Calculated 243 (280-300); Potassium 3.9 mEq/L (3.5-5.1); Sodium 117 mEq/L (136-145); Total Protein 7.3 g/dL (6.4-8.9); eGFR For African Americans > 60 (> 60); eGFR For Non-African Americans > 60 (> 60)
[2021-07-31] MEDS ORDERED: Ondansetron 4 MG/2 ML VIAL IVP PRN (10:37)
[2021-07-31] MEDS: Morphine Sulfate 2 MG/ML SYRINGE IVP PRN ×3 (10:48→21:24)
[2021-07-31] MEDS ORDERED: Perflutren Lipid Microsphere 1.3 ML in 0.9 % Sodium Chloride 8.7 ML IVP PRN (10:55)
[2021-07-31] MEDS ORDERED: Ipratropium/Albuterol Neb 3 ML IH PRN (17:04)
[2021-07-31 17:57] LABS: BUN/Creatinine Ratio 11 (6-26); Blood Urea Nitrogen 7 mg/dL (8-23); Calcium 8.6 mg/dL (8.6-10.3); Carbon Dioxide 29 mEq/L (23-29); Chloride 86 mEq/L (98-107); Glucose 105 mg/dL (70-105); Osmolality,Calculated 252 (280-300); Potassium 4.1 mEq/L (3.5-5.1); Sodium 122 mEq/L (136-145); eGFR For African Americans > 60 (> 60); eGFR For Non-African Americans > 60 (> 60)
[2021-07-31] MEDS: predniSONE 20 MG TABLET PO SCH ×3 (18:07→18:30)
[2021-07-31] MEDS: Levalbuterol Neb 1.25 MG/3 ML IH SCH (20:45)
[2021-07-31] MEDS ORDERED: Ringers Solution, Lactated 1,000 ML IVC SCH (23:00)
[2021-08-01] MEDS: Levalbuterol Neb 1.25 MG/3 ML IH SCH ×4 (04:03→23:51)
[2021-08-01] MEDS: Morphine Sulfate 2 MG/ML SYRINGE IVP PRN (04:46)
[2021-08-01 06:46] LABS: Hematocrit 33.8 % (37.5-50.1); Immature Granulocytes % 1.2 % (0-4); Lymphocytes # 0.3 K/mcL (0.6-4.6); Lymphocytes % 3.5 %; Mean Corpuscular Hemoglobin 30.8 pg (28.0-33.3); Mean Corpuscular Volume 90.6 fL (83.0-100.0); Monocytes # 0.7 K/mcL (0.0-1.3); Monocytes % 9.7 %; Neutrophils # 6.4 K/mcL (1.6-8.9); Platelet Count 122 K/mcL (140-400); Red Blood Count 3.73 M/mcL (4.19-5.50); Red Cell Distribution Width 13.3 % (11.5-14.5); Segmented Neutrophils % 85.6 %; White Blood Count 7.5 K/mcL (4.3-11.1)
[2021-08-01 06:47] LABS: Hemoglobin 11.5 g/dL (12.9-16.9)
[2021-08-01 07:08] LABS: Chol/HDL Ratio 1.5 (0-4.9)
[2021-08-01 07:11] LABS: BUN/Creatinine Ratio 14 (6-26); Blood Urea Nitrogen 13 mg/dL (8-23); Calcium 8.5 mg/dL (8.6-10.3); Carbon Dioxide 26 mEq/L (23-29); Chloride 84 mEq/L (98-107); Glucose 153 mg/dL (70-105); Osmolality,Calculated 257 (280-300); Potassium 3.7 mEq/L (3.5-5.1); Sodium 122 mEq/L (136-145); eGFR For African Americans > 60 (> 60); eGFR For Non-African Americans > 60 (> 60)
[2021-08-01] MEDS ORDERED: *HR* HYDROmorphone PF 0.5 MG/0.5 ML SYRINGE IVP PRN (07:48)
[2021-08-01] MEDS ORDERED: *HR* FentaNYL (PF) 100 MCG/2 ML VIAL IVP PRN (07:48)
[2021-08-01] MEDS: predniSONE 20 MG TABLET PO SCH (08:07)
[2021-08-01] MEDS ORDERED: Povidone-Iodine 45 ML, Sodium Chloride IRRigation 1,000 ML IR ONE (08:15)
[2021-08-01] MEDS ORDERED: 0.9 % Sodium Chloride 1,000 ML IVC SCH (08:15)
[2021-08-01] MEDS ORDERED: TOTAL JOINT MIXTURE (100ML) INTRAART ONE (08:15)
[2021-08-01] MEDS ORDERED: *HR* Propofol 200 MG/20 ML VIAL IVP ONE ×4 (09:24→12:13)
[2021-08-01] MEDS ORDERED: *HR* Midazolam HCl 2 MG/2 ML VIAL ONE (09:24)
[2021-08-01] MEDS ORDERED: *HR* FentaNYL (PF) 100 MCG/2 ML VIAL ONE (09:24)
[2021-08-01] MEDS ORDERED: CeFAZolin Syr 2,000MG/20 ML 2,000 MG/20 ML SYRINGE IVPB ONE (09:26)
[2021-08-01] MEDS ORDERED: Albuterol 2.5 MG/3 ML NEBULIZER IH ONE (09:30)
[2021-08-01] MEDS ORDERED: Albuterol 2.5 MG/3 ML NEBULIZER ONE (09:31)
[2021-08-01] MEDS ORDERED: Tranexamic Acid 1,000 MG/10 ML VIAL ONE ×2 (10:30→12:24)
[2021-08-01] MEDS ORDERED: Lidocaine -MPF 2% 2 ML VIAL ONE (10:31)
[2021-08-01] MEDS ORDERED: *HR* LORazepam 2 MG/ML VIAL IVP PRN ×3 (20:33)
[2021-08-02] MEDS: Levalbuterol Neb 1.25 MG/3 ML IH SCH ×4 (04:22→19:54)
[2021-08-02 06:50] LABS: Hematocrit 29.8 % (37.5-50.1); Hemoglobin 10.3 g/dL (12.9-16.9); Immature Granulocytes % 0.9 % (0-4); Lymphocytes # 0.6 K/mcL (0.6-4.6); Lymphocytes % 9.1 %; Mean Corpuscular HGB Conc 34.6 g/dL (31.6-35.5); Mean Corpuscular Hemoglobin 31.1 pg (28.0-33.3); Mean Platelet Volume 9.6 fL (9.4-12.4); Monocytes # 0.6 K/mcL (0.0-1.3); Neutrophils # 5.6 K/mcL (1.6-8.9); Platelet Count 134 K/mcL (140-400); Red Blood Count 3.31 M/mcL (4.19-5.50); Red Cell Distribution Width 13.2 % (11.5-14.5); White Blood Count 6.9 K/mcL (4.3-11.1)
[2021-08-02 07:09] LABS: BUN/Creatinine Ratio 14 (6-26); Blood Urea Nitrogen 10 mg/dL (8-23); Calcium 8.6 mg/dL (8.6-10.3); Carbon Dioxide 31 mEq/L (23-29); Chloride 90 mEq/L (98-107); Glucose 118 mg/dL (70-105); Osmolality,Calculated 262 (280-300); Potassium 3.8 mEq/L (3.5-5.1); Sodium 126 mEq/L (136-145); eGFR For African Americans > 60 (> 60); eGFR For Non-African Americans > 60 (> 60)
[2021-08-02] MEDS ORDERED: TOTAL JOINT MIXTURE (100ML) INTRAART ONE (08:00)
[2021-08-02] MEDS ORDERED: Povidone-Iodine 45 ML, Sodium Chloride IRRigation 1,000 ML IR ONE (08:00)
[2021-08-02] MEDS: amLODIPine 5 MG TABLET PO SCH (08:23)
[2021-08-02] MEDS: predniSONE 20 MG TABLET PO SCH (08:23)
[2021-08-02] MEDS: Nicotine 21 MG PATCH.TD24 TD SCH (13:12)
[2021-08-02] MEDS: CeFAZolin 2,000 MG/120 ML BAG IVPB SCH (17:34)
[2021-08-02] MEDS: Morphine Sulfate 2 MG/ML SYRINGE IVP PRN (19:47)
[2021-08-03] MEDS: CeFAZolin 2,000 MG/120 ML BAG IVPB SCH ×3 (01:53→17:53)
[2021-08-03] MEDS: Levalbuterol Neb 1.25 MG/3 ML IH SCH ×4 (03:13→22:51)
[2021-08-03 06:16] LABS: Basophils % 0.1 %; Eosinophils % 0.1 %; Hematocrit 29.5 % (37.5-50.1); Hemoglobin 10.1 g/dL (12.9-16.9); Immature Granulocytes % 0.6 % (0-4); Lymphocytes # 0.9 K/mcL (0.6-4.6); Lymphocytes % 12.7 %; Mean Corpuscular HGB Conc 34.2 g/dL (31.6-35.5); Mean Corpuscular Hemoglobin 31.8 pg (28.0-33.3); Mean Corpuscular Volume 92.8 fL (83.0-100.0); Mean Platelet Volume 9.4 fL (9.4-12.4); Monocytes % 14.8 %; Neutrophils # 4.9 K/mcL (1.6-8.9); Platelet Count 170 K/mcL (140-400); Red Blood Count 3.18 M/mcL (4.19-5.50); Red Cell Distribution Width 13.3 % (11.5-14.5); Segmented Neutrophils % 71.7 %; White Blood Count 6.8 K/mcL (4.3-11.1)
[2021-08-03 06:28] LABS: BUN/Creatinine Ratio 16 (6-26); Blood Urea Nitrogen 10 mg/dL (8-23); Calcium 8.5 mg/dL (8.6-10.3); Carbon Dioxide 30 mEq/L (23-29); Chloride 93 mEq/L (98-107); Glucose 115 mg/dL (70-105); Osmolality,Calculated 268 (280-300); Potassium 3.4 mEq/L (3.5-5.1); Sodium 129 mEq/L (136-145); eGFR For African Americans > 60 (> 60); eGFR For Non-African Americans > 60 (> 60)
[2021-08-03] MEDS: amLODIPine 5 MG TABLET PO SCH (07:50)
[2021-08-03] MEDS: predniSONE 20 MG TABLET PO SCH (07:50)
[2021-08-03] MEDS: Nicotine 21 MG PATCH.TD24 TD SCH (07:50)
[2021-08-03 18:20] LABS: Bilirubin,Urine Negative (Negative); Blood,Urine Negative (Negative); Clarity,Urine Clear (Clear); Color,Urine Light-Yellow (Yellow); Glucose,Urine (UA) 500 mg/dL (Normal); Ketones,Urine Negative (Negative); Leukocyte Esterase,Urine Negative (Negative); Mucus,Urine Few per lpf (None-Few); Nitrite,Urine Negative (Negative); Protein,Urine 30 mg/dL (Neg-Trace); RBC,Urine 0-3 per hpf (0-3); Specific Gravity,Urine 1.015 (1.010-1.025); Urobilinogen,Urine Normal (Normal); WBC,Urine 0-3 per hpf (0-3)
[2021-08-04] MEDS: CeFAZolin 2,000 MG/120 ML BAG IVPB SCH ×3 (01:12→17:09)
[2021-08-04] MEDS: Levalbuterol Neb 1.25 MG/3 ML IH SCH ×4 (04:22→20:07)
[2021-08-04 05:16] LABS: Basophils % 0.2 %; Eosinophils % 0.3 %; Hematocrit 32.8 % (37.5-50.1); Hemoglobin 11.3 g/dL (12.9-16.9); Immature Granulocytes % 0.6 % (0-4); Lymphocytes # 0.9 K/mcL (0.6-4.6); Lymphocytes % 13.8 %; Mean Corpuscular HGB Conc 34.5 g/dL (31.6-35.5); Mean Corpuscular Hemoglobin 31.7 pg (28.0-33.3); Mean Corpuscular Volume 91.9 fL (83.0-100.0); Monocytes % 15.5 %; Neutrophils # 4.4 K/mcL (1.6-8.9); Platelet Count 217 K/mcL (140-400); Red Blood Count 3.57 M/mcL (4.19-5.50); Red Cell Distribution Width 13.4 % (11.5-14.5); Segmented Neutrophils % 69.6 %; White Blood Count 6.3 K/mcL (4.3-11.1)
[2021-08-04 05:38] LABS: BUN/Creatinine Ratio 17 (6-26); Blood Urea Nitrogen 10 mg/dL (8-23); Calcium 9.2 mg/dL (8.6-10.3); Carbon Dioxide 31 mEq/L (23-29); Chloride 93 mEq/L (98-107); Glucose 110 mg/dL (70-105); Magnesium 1.9 mg/dL (1.6-2.6); Osmolality,Calculated 280 (280-300); Potassium 3.6 mEq/L (3.5-5.1); Sodium 135 mEq/L (136-145); eGFR For African Americans > 60 (> 60); eGFR For Non-African Americans > 60 (> 60)
[2021-08-04] MEDS: predniSONE 20 MG TABLET PO SCH (09:17)
[2021-08-04] MEDS: amLODIPine 5 MG TABLET PO SCH (09:18)
[2021-08-04] MEDS: Nicotine 21 MG PATCH.TD24 TD SCH (09:18)
[2021-08-05] MEDS: Levalbuterol Neb 1.25 MG/3 ML IH SCH ×4 (03:32→19:26)
[2021-08-05] MEDS: CeFAZolin 2,000 MG/120 ML BAG IVPB SCH ×3 (03:50→17:33)
[2021-08-05 05:14] LABS: Eosinophils # 0.1 K/mcL (0.0-0.6); Hematocrit 28.4 % (37.5-50.1); Lymphocytes % 18.4 %; Mean Corpuscular HGB Conc 33.1 g/dL (31.6-35.5); Mean Corpuscular Hemoglobin 30.4 pg (28.0-33.3); Mean Corpuscular Volume 91.9 fL (83.0-100.0); Mean Platelet Volume 8.8 fL (9.4-12.4); Monocytes # 1.1 K/mcL (0.0-1.3); Monocytes % 20.5 %; Neutrophils # 3.1 K/mcL (1.6-8.9); Platelet Count 265 K/mcL (140-400); Red Blood Count 3.09 M/mcL (4.19-5.50); Red Cell Distribution Width 13.7 % (11.5-14.5); Segmented Neutrophils % 59.1 %; White Blood Count 5.2 K/mcL (4.3-11.1)
[2021-08-05 05:18] LABS: Hemoglobin 9.4 g/dL (12.9-16.9)
[2021-08-05 05:39] LABS: BUN/Creatinine Ratio 21 (6-26); Blood Urea Nitrogen 13 mg/dL (8-23); Carbon Dioxide 31 mEq/L (23-29); Chloride 95 mEq/L (98-107); Glucose 124 mg/dL (70-105); Magnesium 1.8 mg/dL (1.6-2.6); Osmolality,Calculated 276 (280-300); Potassium 3.4 mEq/L (3.5-5.1); Sodium 132 mEq/L (136-145); eGFR For African Americans > 60 (> 60); eGFR For Non-African Americans > 60 (> 60)
[2021-08-05] MEDS: Nicotine 21 MG PATCH.TD24 TD SCH (09:04)
[2021-08-05] MEDS: amLODIPine 5 MG TABLET PO SCH (09:04)
[2021-08-05] MEDS: *HR* Heparin 5,000 UNIT/ML VIAL SQ SCH ×2 (14:29→21:21)
[2021-08-06] MEDS: CeFAZolin 2,000 MG/120 ML BAG IVPB SCH ×3 (02:38→19:23)
[2021-08-06] MEDS: Levalbuterol Neb 1.25 MG/3 ML IH SCH ×4 (03:58→20:08)
[2021-08-06 04:26] LABS: Hematocrit 27.9 % (37.5-50.1); Hemoglobin 9.5 g/dL (12.9-16.9); Mean Corpuscular HGB Conc 34.1 g/dL (31.6-35.5); Mean Corpuscular Hemoglobin 31.8 pg (28.0-33.3); Mean Corpuscular Volume 93.3 fL (83.0-100.0); Mean Platelet Volume 8.6 fL (9.4-12.4); Platelet Count 261 K/mcL (140-400); Red Blood Count 2.99 M/mcL (4.19-5.50); White Blood Count 5.2 K/mcL (4.3-11.1)
[2021-08-06 04:47] LABS: BUN/Creatinine Ratio 16 (6-26); Blood Urea Nitrogen 11 mg/dL (8-23); Calcium 8.5 mg/dL (8.6-10.3); Carbon Dioxide 31 mEq/L (23-29); Chloride 95 mEq/L (98-107); Glucose 115 mg/dL (70-105); Magnesium 1.5 mg/dL (1.6-2.6); Osmolality,Calculated 274 (280-300); Potassium 3.5 mEq/L (3.5-5.1); Sodium 132 mEq/L (136-145); eGFR For African Americans > 60 (> 60); eGFR For Non-African Americans > 60 (> 60)
[2021-08-06 04:48] LABS: % Iron Saturation 12 % (20-55); Iron 29 mcg/dL (65-175); Transferrin 180 mg/dL (203-362)
[2021-08-06 05:04] LABS: Lymphocytes # 1.3 K/mcL (0.6-4.6); Monocytes # 0.4 K/mcL (0.0-1.3); Neutrophils # 3.5 K/mcL (1.6-8.9); Platelet Estimate Normal (Normal)
[2021-08-06 05:05] LABS: Ferritin 317 ng/mL (20-250); Hypochromasia Present (Not Present)
[2021-08-06 05:11] LABS: Folate 11.6 ng/mL (3.0-16.0)
[2021-08-06] MEDS: *HR* Heparin 5,000 UNIT/ML VIAL SQ SCH ×3 (05:24→21:13)
[2021-08-06] MEDS: amLODIPine 5 MG TABLET PO SCH (08:54)
[2021-08-06] MEDS: Magnesium Oxide 400 MG TABLET PO SCH (08:54)
[2021-08-06] MEDS: Nicotine 21 MG PATCH.TD24 TD SCH (08:55)
[2021-08-07] MEDS: CeFAZolin 2,000 MG/120 ML BAG IVPB SCH ×2 (02:03→09:29)
[2021-08-07] MEDS: Levalbuterol Neb 1.25 MG/3 ML IH SCH ×4 (04:03→20:33)
[2021-08-07] MEDS: *HR* Heparin 5,000 UNIT/ML VIAL SQ SCH (05:16)
[2021-08-07] MEDS: amLODIPine 5 MG TABLET PO SCH (09:29)
[2021-08-07] MEDS: Nicotine 21 MG PATCH.TD24 TD SCH (09:29)
[2021-08-07] MEDS: Magnesium Oxide 400 MG TABLET PO SCH (09:29)
[2021-08-08] MEDS: Levalbuterol Neb 1.25 MG/3 ML IH SCH ×4 (04:41→21:05)
[2021-08-08 06:05] LABS: BUN/Creatinine Ratio 20 (6-26); Blood Urea Nitrogen 12 mg/dL (8-23); Calcium 8.6 mg/dL (8.6-10.3); Carbon Dioxide 28 mEq/L (23-29); Chloride 93 mEq/L (98-107); Glucose 122 mg/dL (70-105); Magnesium 1.6 mg/dL (1.6-2.6); Osmolality,Calculated 265 (280-300); Potassium 4.2 mEq/L (3.5-5.1); Sodium 127 mEq/L (136-145); eGFR For African Americans > 60 (> 60); eGFR For Non-African Americans > 60 (> 60)
[2021-08-08] MEDS: Aspirin Enteric Coated 325 MG Tablet PO SCH (08:12)
[2021-08-08] MEDS: Nicotine 21 MG PATCH.TD24 TD SCH (08:12)
[2021-08-08] MEDS: Magnesium Oxide 400 MG TABLET PO SCH (08:12)
[2021-08-08] MEDS: amLODIPine 5 MG TABLET PO SCH (08:12)
[2021-08-09] MEDS: Levalbuterol Neb 1.25 MG/3 ML IH SCH ×4 (05:02→19:42)
[2021-08-09 06:43] LABS: BUN/Creatinine Ratio 21 (6-26); Blood Urea Nitrogen 15 mg/dL (8-23); Calcium 8.8 mg/dL (8.6-10.3); Carbon Dioxide 34 mEq/L (23-29); Chloride 92 mEq/L (98-107); Glucose 116 mg/dL (70-105); Osmolality,Calculated 270 (280-300); Potassium 4.6 mEq/L (3.5-5.1); Sodium 129 mEq/L (136-145); eGFR For African Americans > 60 (> 60); eGFR For Non-African Americans > 60 (> 60)
[2021-08-09] MEDS: Nicotine 21 MG PATCH.TD24 TD SCH (10:25)
[2021-08-09] MEDS: amLODIPine 5 MG TABLET PO SCH (10:35)
[2021-08-09] MEDS: Magnesium Oxide 400 MG TABLET PO SCH (10:35)
[2021-08-09] MEDS: Aspirin Enteric Coated 325 MG Tablet PO SCH (10:35)
[2021-08-10] MEDS: Levalbuterol Neb 1.25 MG/3 ML IH SCH ×3 (02:49→15:31)
[2021-08-10 05:11] LABS: BUN/Creatinine Ratio 18 (6-26); Blood Urea Nitrogen 11 mg/dL (8-23); Calcium 8.9 mg/dL (8.6-10.3); Carbon Dioxide 30 mEq/L (23-29); Chloride 92 mEq/L (98-107); Glucose 113 mg/dL (70-105); Osmolality,Calculated 266 (280-300); Potassium 4.2 mEq/L (3.5-5.1); Sodium 128 mEq/L (136-145); eGFR For African Americans > 60 (> 60); eGFR For Non-African Americans > 60 (> 60)
[2021-08-10] MEDS ORDERED: 0.9 % Sodium Chloride 1,000 ML IVC SCH (08:00)
[2021-08-10] MEDS: Aspirin Enteric Coated 325 MG Tablet PO SCH (09:00)
[2021-08-10] MEDS: amLODIPine 5 MG TABLET PO SCH (09:00)
[2021-08-10] MEDS: Magnesium Oxide 400 MG TABLET PO SCH (09:00)
[2021-08-10] MEDS: Nicotine 21 MG PATCH.TD24 TD SCH (09:01)
[2021-08-10 13:08] LABS: Influenza A PCR Negative (Negative); Influenza B PCR Negative (Negative); Resp. Syncytial Virus PCR Negative (Negative)
[2021-08-10 13:29] LABS: SARS-CoV-2 by PCR (In House) Positive (Negative)
[2021-08-11] MEDS: amLODIPine 5 MG TABLET PO SCH (09:38)
[2021-08-11] MEDS: Aspirin Enteric Coated 325 MG Tablet PO SCH (09:38)
[2021-08-11] MEDS: Nicotine 21 MG PATCH.TD24 TD SCH (09:38)
[2021-08-11] MEDS: Magnesium Oxide 400 MG TABLET PO SCH (09:38)
[2021-08-11 11:34] LABS: BUN/Creatinine Ratio 21 (6-26); Blood Urea Nitrogen 12 mg/dL (8-23); Calcium 8.9 mg/dL (8.6-10.3); Carbon Dioxide 32 mEq/L (23-29); Chloride 96 mEq/L (98-107); Glucose 114 mg/dL (70-105); Osmolality,Calculated 275 (280-300); Potassium 4.3 mEq/L (3.5-5.1); Sodium 132 mEq/L (136-145); eGFR For African Americans > 60 (> 60); eGFR For Non-African Americans > 60 (> 60)
[2021-08-12 01:03] LABS: Basophils % 0.1 %; Eosinophils # 0.1 K/mcL (0.0-0.6); Hematocrit 25.5 % (37.5-50.1); Hemoglobin 8.2 g/dL (12.9-16.9); Immature Granulocytes % 0.5 % (0-4); Lymphocytes # 1.1 K/mcL (0.6-4.6); Lymphocytes % 13.6 %; Mean Corpuscular HGB Conc 32.2 g/dL (31.6-35.5); Mean Corpuscular Hemoglobin 30.4 pg (28.0-33.3); Mean Corpuscular Volume 94.4 fL (83.0-100.0); Mean Platelet Volume 8.7 fL (9.4-12.4); Monocytes # 0.8 K/mcL (0.0-1.3); Monocytes % 10.1 %; Neutrophils # 5.9 K/mcL (1.6-8.9); Platelet Count 326 K/mcL (140-400); Red Cell Distribution Width 13.2 % (11.5-14.5); Segmented Neutrophils % 74.7 %
[2021-08-12 01:05] LABS: White Blood Count 7.9 K/mcL (4.3-11.1)
[2021-08-12 01:22] LABS: BUN/Creatinine Ratio 17 (6-26); Blood Urea Nitrogen 12 mg/dL (8-23); Calcium 8.7 mg/dL (8.6-10.3); Carbon Dioxide 31 mEq/L (23-29); Chloride 96 mEq/L (98-107); Glucose 126 mg/dL (70-105); Osmolality,Calculated 277 (280-300); Potassium 4.3 mEq/L (3.5-5.1); Sodium 133 mEq/L (136-145); eGFR For African Americans > 60 (> 60); eGFR For Non-African Americans > 60 (> 60)
[2021-08-12] MEDS: Nicotine 21 MG PATCH.TD24 TD SCH (10:13)
[2021-08-12] MEDS: Aspirin Enteric Coated 325 MG Tablet PO SCH (10:14)
[2021-08-12] MEDS: amLODIPine 5 MG TABLET PO SCH (10:14)
[2021-08-12] MEDS: Magnesium Oxide 400 MG TABLET PO SCH (10:14)
[2021-08-13 04:22] VITALS: O2SAT 94
[2021-08-13 06:55] VITALS: BP 161/84; PULSE 89; TEMP 98.7
[2021-08-13] MEDS: amLODIPine 5 MG TABLET PO SCH (09:25)
[2021-08-13] MEDS: Aspirin Enteric Coated 325 MG Tablet PO SCH (09:26)
[2021-08-13] MEDS: Nicotine 21 MG PATCH.TD24 TD SCH (09:26)
[2021-08-13] MEDS: Magnesium Oxide 400 MG TABLET PO SCH (09:26)
== END 2021-08-13 17:45 | DRG 480 ==
LOC: 3NENU 08:05 → EMEROOARM 08:05 → 3NENU 12:22 → 4WAOSI 08-01 13:45 → SUATTDRO 08-01 15:27
PROVIDERS: ADMIT Student in an Organized Health Care Education/Training Program; ATTEND Hospitalist

== ENCOUNTER 2021-09-09 07:21 | Inpatient (IN) ==
[~2021-09-09 07:21] MED LIST: Acetaminophen IV 1,000 MG/100 ML BAG IVPB ONE; Celecoxib 100 MG CAPSULE PO ONE; Famotidine 20 MG/2 ML VIAL IVP ONE
[2021-09-09] MEDS ORDERED: Ethanol\\Acetic Acid\\Na Ace\\Ben 1,000 ML IRRIG.SOLN IR ONE (07:37)
[2021-09-09] MEDS ORDERED: Vancomycin 1,000 MG VIAL ONE ×2 (07:37→08:43)
[2021-09-09] MEDS ORDERED: CeFAZolin Syr 2,000MG/20 ML 2,000 MG/20 ML SYRINGE IVPB ONE (07:39)
[2021-09-09] MEDS ORDERED: Ringers Solution, Lactated 1,000 ML IVC SCH ×2 (07:45→16:27)
[2021-09-09] MEDS ORDERED: Ipratropium/Albuterol Neb 3 ML IH ONE (07:52)
[2021-09-09] MEDS ORDERED: *HR* FentaNYL (PF) 100 MCG/2 ML VIAL ONE (08:56)
[2021-09-09] MEDS ORDERED: *HR* Midazolam HCl 2 MG/2 ML VIAL ONE (08:56)
[2021-09-09] MEDS ORDERED: *HR* Succinylcholine 200 MG/10 ML VIAL IVP ONE (08:59)
[2021-09-09] MEDS ORDERED: Lidocaine HCL 4 ML Topical Solution (Laryng-O-Jet Kit Sterile Pak) TP ONE (08:59)
[2021-09-09] MEDS ORDERED: Lidocaine -MPF 2% 2 ML VIAL ONE (08:59)
[2021-09-09] MEDS ORDERED: *HR* Propofol 200 MG/20 ML VIAL IVP ONE ×2 (09:00→11:26)
[2021-09-09] MEDS ORDERED: *HR* Rocuronium Bromide 50 MG/5 ML VIAL ONE (10:00)
[2021-09-09] MEDS ORDERED: Tranexamic Acid 1,000 MG/10 ML VIAL ONE ×2 (10:16→10:53)
[2021-09-09] MEDS ORDERED: TOTAL JOINT MIXTURE (100ML) INTRAART ONE (10:35)
[2021-09-09] MEDS ORDERED: Povidone-Iodine 45 ML, Sodium Chloride IRRigation 1,000 ML IR ONE (10:35)
[2021-09-09] MEDS ORDERED: Gentamicin 300 MG in 0.9 % Sodium Chloride 100 ML IVPB ONE (10:37)
[2021-09-09] MEDS ORDERED: *HR* Phenylephrine 10 MG/ML VIAL ONE (10:52)
[2021-09-09] MEDS ORDERED: *HR* OxyCODONE Immed Rel 5 MG TABLET PO PRN ×3 (12:40→16:27)
[2021-09-09] MEDS ORDERED: Ketorolac 30 MG/ML VIAL IVP PRN (13:17)
[2021-09-09] MEDS ORDERED: Naloxone 0.4 MG/ML INJ IVP PRN (16:27)
[2021-09-09] MEDS ORDERED: Ipratropium/Albuterol Neb 3 ML IH PRN (16:27)
[2021-09-09] MEDS ORDERED: Ondansetron 4 MG/2 ML VIAL IVP PRN (16:27)
[2021-09-09] MEDS ORDERED: Sennosides 8.6 MG TABLET PO PRN (16:27)
[2021-09-09] MEDS ORDERED: *HR* Promethazine 25 MG/ML VIAL IM PRN (16:27)
[2021-09-09] MEDS ORDERED: MOM Conc 10 ML UD.LIQ PO PRN (16:27)
[2021-09-09] MEDS: Ketorolac 30 MG/ML VIAL IVP SCH ×2 (17:22→17:23)
[2021-09-09] MEDS: *HR* OxyCODONE Immed Rel 5 MG TABLET PO PRN (17:22)
[2021-09-09] MEDS: Ascorbic Acid 500 MG TABLET PO SCH (17:23)
[2021-09-09 17:54] LABS: Hematocrit 28.8 % (37.5-50.1); Hemoglobin 9.5 g/dL (12.9-16.9); Mean Corpuscular Hemoglobin 30.1 pg (28.0-33.3); Mean Corpuscular Volume 91.1 fL (83.0-100.0); Mean Platelet Volume 8.2 fL (9.4-12.4); Platelet Count 220 K/mcL (140-400); Red Blood Count 3.16 M/mcL (4.19-5.50); Red Cell Distribution Width 12.1 % (11.5-14.5); White Blood Count 10.7 K/mcL (4.3-11.1)
[2021-09-09 18:12] LABS: BUN/Creatinine Ratio 12 (6-26); Blood Urea Nitrogen 9 mg/dL (8-23); Calcium 8.5 mg/dL (8.6-10.3); Carbon Dioxide 25 mEq/L (23-29); Chloride 99 mEq/L (98-107); Glucose 156 mg/dL (70-105); Magnesium 1.4 mg/dL (1.6-2.6); Osmolality,Calculated 276 (280-300); Potassium 3.6 mEq/L (3.5-5.1); Sodium 132 mEq/L (136-145); eGFR For African Americans > 60 (> 60); eGFR For Non-African Americans > 60 (> 60)
[2021-09-09] MEDS: Levalbuterol Neb 1.25 MG/3 ML IH SCH ×2 (18:16→20:54)
[2021-09-09] MEDS: CeFAZolin 2 GM/120 ML BAG IVPB SCH (18:54)
[2021-09-10] MEDS: *HR* OxyCODONE Immed Rel 5 MG TABLET PO PRN ×3 (02:03→14:16)
[2021-09-10] MEDS: CeFAZolin 2 GM/120 ML BAG IVPB SCH ×3 (02:06→18:37)
[2021-09-10] MEDS: Levalbuterol Neb 1.25 MG/3 ML IH SCH ×4 (03:34→22:05)
[2021-09-10] MEDS: Ketorolac 30 MG/ML VIAL IVP SCH (05:17)
[2021-09-10 07:23] LABS: Basophils % 0.3 %; Eosinophils # 0.1 K/mcL (0.0-0.6); Eosinophils % 1.3 %; Hematocrit 25.2 % (37.5-50.1); Hemoglobin 8.5 g/dL (12.9-16.9); Immature Granulocytes % 0.3 % (0-4); Lymphocytes # 1.3 K/mcL (0.6-4.6); Lymphocytes % 18.6 %; Mean Corpuscular HGB Conc 33.7 g/dL (31.6-35.5); Mean Corpuscular Hemoglobin 30.1 pg (28.0-33.3); Mean Corpuscular Volume 89.4 fL (83.0-100.0); Mean Platelet Volume 8.4 fL (9.4-12.4); Monocytes # 0.5 K/mcL (0.0-1.3); Monocytes % 7.2 %; Platelet Count 219 K/mcL (140-400); Red Blood Count 2.82 M/mcL (4.19-5.50); Red Cell Distribution Width 12.2 % (11.5-14.5); Segmented Neutrophils % 72.3 %; White Blood Count 6.9 K/mcL (4.3-11.1)
[2021-09-10 07:42] LABS: BUN/Creatinine Ratio 10 (6-26); Blood Urea Nitrogen 7 mg/dL (8-23); Calcium 8.5 mg/dL (8.6-10.3); Carbon Dioxide 28 mEq/L (23-29); Chloride 101 mEq/L (98-107); Glucose 96 mg/dL (70-105); Magnesium 1.6 mg/dL (1.6-2.6); Osmolality,Calculated 276 (280-300); Potassium 3.8 mEq/L (3.5-5.1); Sodium 134 mEq/L (136-145); eGFR For African Americans > 60 (> 60); eGFR For Non-African Americans > 60 (> 60)
[2021-09-10] MEDS ORDERED: Cyanocobalamin (B-12) 1,000 MCG/ML VIAL SQ ONE (07:42)
[2021-09-10] MEDS ORDERED: Ketorolac 30 MG/ML VIAL IVP PRN (07:42)
[2021-09-10] MEDS ORDERED: *HR* LORazepam 2 MG/ML VIAL IVP PRN ×3 (07:43)
[2021-09-10] MEDS: Magnesium Oxide 400 MG TABLET PO SCH (08:07)
[2021-09-10] MEDS: amLODIPine 5 MG TABLET PO SCH (08:08)
[2021-09-10] MEDS: Ascorbic Acid 500 MG TABLET PO SCH ×2 (08:08→18:32)
[2021-09-10] MEDS: Multivit/Ca/Min/Fe/FA 1 TAB TABLET PO SCH (08:08)
[2021-09-10] MEDS: Thiamine (B-1) 100 MG TABLET PO SCH (08:10)
[2021-09-10] MEDS: Folic Acid 1 MG TABLET PO SCH (08:10)
[2021-09-10] MEDS: *HR* Enoxaparin 40 MG/0.4 ML SYRINGE SQ SCH (08:22)
[2021-09-10] MEDS: Iron Sucrose Complex 200 MG in 0.9 % Sodium Chloride 100 ML IVPB SCH (10:13)
[2021-09-10] MEDS: Aspirin Enteric Coated 81 MG Tablet PO SCH ×2 (14:16→19:37)
[2021-09-11] MEDS: CeFAZolin 2 GM/120 ML BAG IVPB SCH ×2 (03:06→10:31)
[2021-09-11] MEDS: Levalbuterol Neb 1.25 MG/3 ML IH SCH ×3 (04:03→15:47)
[2021-09-11] MEDS: *HR* Enoxaparin 40 MG/0.4 ML SYRINGE SQ SCH (05:09)
[2021-09-11 06:27] LABS: Basophils % 0.3 %; Eosinophils # 0.1 K/mcL (0.0-0.6); Hematocrit 25.9 % (37.5-50.1); Hemoglobin 8.7 g/dL (12.9-16.9); Immature Granulocytes % 0.3 % (0-4); Lymphocytes # 1.1 K/mcL (0.6-4.6); Lymphocytes % 13.7 %; Mean Corpuscular HGB Conc 33.6 g/dL (31.6-35.5); Mean Corpuscular Volume 89.3 fL (83.0-100.0); Mean Platelet Volume 8.9 fL (9.4-12.4); Monocytes # 0.6 K/mcL (0.0-1.3); Monocytes % 7.9 %; Platelet Count 229 K/mcL (140-400); Red Cell Distribution Width 12.4 % (11.5-14.5); Segmented Neutrophils % 76.8 %; White Blood Count 7.8 K/mcL (4.3-11.1)
[2021-09-11 06:52] LABS: BUN/Creatinine Ratio 12 (6-26); Blood Urea Nitrogen 7 mg/dL (8-23); Calcium 8.8 mg/dL (8.6-10.3); Carbon Dioxide 25 mEq/L (23-29); Chloride 99 mEq/L (98-107); Glucose 114 mg/dL (70-105); Magnesium 1.7 mg/dL (1.6-2.6); Osmolality,Calculated 273 (280-300); Potassium 3.8 mEq/L (3.5-5.1); Sodium 132 mEq/L (136-145); eGFR For African Americans > 60 (> 60); eGFR For Non-African Americans > 60 (> 60)
[2021-09-11] MEDS: Ascorbic Acid 500 MG TABLET PO SCH (07:47)
[2021-09-11] MEDS: Multivit/Ca/Min/Fe/FA 1 TAB TABLET PO SCH (07:47)
[2021-09-11] MEDS: Aspirin Enteric Coated 81 MG Tablet PO SCH (07:47)
[2021-09-11] MEDS: Magnesium Oxide 400 MG TABLET PO SCH (07:47)
[2021-09-11] MEDS: Folic Acid 1 MG TABLET PO SCH (07:48)
[2021-09-11] MEDS: Thiamine (B-1) 100 MG TABLET PO SCH (07:48)
[2021-09-11] MEDS: amLODIPine 5 MG TABLET PO SCH (07:48)
[2021-09-11 08:00] VITALS: O2SAT 96
[2021-09-11] MEDS: Iron Sucrose Complex 200 MG in 0.9 % Sodium Chloride 100 ML IVPB SCH (08:01)
[2021-09-11 11:09] VITALS: BP 149/86; PULSE 87; TEMP 98.4
== END 2021-09-11 17:00 | disposition home or self-care (01) | DRG 470 ==
LOC: SDCAOSI 07:21 → 4WAOSI 15:53
PROVIDERS: ADMIT Orthopaedic Surgery; ATTEND Orthopaedic Surgery